=== PATIENT | female | born 1935 | race Caucasian/White ===

== ENCOUNTER 2017-10-16 10:04 | Observation (INO) | payer OTHER ==
[~2017-10-16] VITALS: Ht 160 cm; Wt 52.2 kg
[~2017-10-16 10:04] MED LIST: AMLO-110 PO; ATEN50TA8 PO; CHOLTAB3 PO; FLX10 PO; LEVO75TA36 PO; TRAM-10 PO
[2017-10-16 10:11] VITALS: Ht 160 cm; Wt 52.2 kg
--- NOTE | 2017-10-16 10:23 | EMERGENCY ROOM VISIT NOTE ---
History Report prepared by Amy: Italo Dillon Under the Supervision of: Dr. Bryce Castro M.D. First contact with patient: 10:06 Stated Complaint: SYNCOPE/FALL History of Present Illness The patient is an 82 year old female with a history of hypertension who presents to the Emergency Room via EMS with complaints of a syncopal episode that occurred prior to arrival this morning. Per EMS, the patient was leaving an Urgent Care after getting sutured and passed out and fell. No seizure activity was seen. Per the patient's daughter, the patient got really white before the fall and was not responding. The patient states that she had new boots on that may have gotten her off-balance. She denies any hits to her chest or abdomen. She also denies any recent flu-like illnesses, fevers, tongue biting , numbness, weakness, lightheadedness, dizziness, headaches, neck pain, extremity pain, abdominal pain, urinary symptoms, melena, or hematochezia. Per the patient's daughter, the patient had been doing well recently, and was going to doctor's appointments on her own. She takes a baby Aspirin daily. Her tetanus shot is up to date. 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 Was unresponsive for a bit of time. Denies tongue biting or extremity pain. Denies lightheadedness, dizziness. Review of Systems See HPI for pertinent positives & negatives. A total of 10 systems reviewed and were otherwise negative. Past Medical & Surgical Medical Problems: (1) Benign hypertension (2) Chronic Kidney Disease, Stage Iii (Moderate) (3) Head injury without fracture of skull (4) Hypothyroidism Nos (5) Syncope and collapse Surgical Problems: (1) Back surgery (2) Hysterectomy Old medical records were reviewed. Nurse's notes were reviewed and I agree with. Family History Family history omitted secondary to patient's advanced age. Social History Smoking Status: Never Smoker Alcohol Use: none Marital Status: Housing Status: lives alone Occupation Status: retired Current/Historical Medications Scheduled Amlodipine Besylate (Amlodipine Besylate), 10 MG PO DAILY Aspirin (Aspirin Ec), 81 MG PO DAILY Atenolol (Tenormin), 50 MG PO DAILY Atorvastatin (Atorvastatin Calcium), 10 MG PO DAILY Levothyroxine Sodium (Levothyroxine Sodium), 75 MCG PO DAILY Tramadol (Ultram), 25 MG PO Q6HR PRN Scheduled PRN Cyclobenzaprine Hcl (Flexeril), 5 MG PO TID PRN for spasms Hydroxyzine HCl (Hydroxyzine HCl), 10 MG PO Q6 PRN for Itching Loratadine (Claritin), 10 MG PO DAILY PRN for Itching Allergies Coded Allergies: Beclomethasone (Verified Allergy, Unknown, ?, 10/16/17) Diazepam (Verified Allergy, Unknown, ?, 10/16/17) Codeine (Verified Adverse Reaction, Mild, MILD CONFUSION, 10/16/17) Physical Exam Vital Signs Date Time Temp Pulse Resp B/P (MAP) Pulse Ox O2 Delivery O2 Flow Rate FiO2 10/16/17 11:21 36.9 68 18 130/65 95 Room Air 10/16/17 10:11 36.9 68 18 154/74 95 Room Air 10/16/17 10:10 68 Physical Exam General: Non-ill appearing older female in no acute distress. HEENT: Has 2 bandages on the left forehead and face from previous wound repair. No active bleeding. Pupils are equal round and reactive to light. Extraocular movements are intact. Oropharynx is pink with moist mucous membranes. Edentulous. No swelling of the mouth lips or tongue. Neck: Supple with a midline trachea. No meningeal signs or stiffness, no JVD or bruits. No Stridor. Chest: Clear to auscultation bilaterally. No wheezes or rhonchi. No increased work of breathing. Heart: regular rate and rhythm. Abdomen: Soft nontender, nondistended without rebound guarding or rigidity. Extremities: No cyanosis clubbing or edema. No calf tenderness or assymetry Spine/Back. Non tender to palpation. No CVA tenderness Skin: Good turgor without rashes. Neurologic exam: Cranial nerves two through 12 are intact. Motor and sensation are intact and symmetrical throughout. Medical Decision & Procedures ER Provider Diagnostic Interpretation: Radiology results as stated below per my review and radiologist interpretation: HEAD WITHOUT CONTRAST (CT) CLINICAL HISTORY: 82 years-old Female presenting with eval for trauma, laceration to the left temporal region. TECHNIQUE: Multidetector CT imaging of the head was performed without the use of intravenous contrast. IV contrast: None. A dose lowering technique was used consistent with the principles of ALARA (as low as reasonably achievable). COMPARISON: 03/07/2009. CT DOSE (mGy.cm): The estimated cumulative dose is 537.48 mGy.cm. FINDINGS: Deck Supervisor topogram: The patient is edentulous. Ventricles and sulci normal in size. Periventricular and subcortical white matter hypoattenuation, nonspecific but likely indicative of chronic small vessel ischemic change. No mass effect or midline shift. No hemorrhage or acute territorial infarct. No extra-axial fluid collection. Sclerosis of the right maxillary sinus wall suggest chronic sinusitis. Calvarium intact. Minimal soft tissue irregularity over the left temporal region consistent with laceration. No large hematoma. IMPRESSION: 1. No acute intracranial abnormality. 2. Laceration over the left temporal region. No subjacent osseous injury. 3. Evidence of chronic sinusitis of the right maxillary sinus. Electronically signed by: Josh Lanza M.D. 10/16/2017 11:05 AM Dictated Date/Time: 10/16/2017 11:02 AM CHEST ONE VIEW PORTABLE CLINICAL HISTORY: 82 years-old Female presenting with CHEST PAIN. TECHNIQUE: Portable upright AP view of the chest was obtained. COMPARISON: 11/25/2012. FINDINGS: Atherosclerosis of the aortic arch. Cardiac silhouette normal in size. Mitral annular calcification may be present. Lungs and pleural spaces clear. Degenerative changes of the thoracic spine. Chronic deformity of the distal right clavicle and bilateral humeral heads. Upper abdomen normal. IMPRESSION: 1. No acute cardiopulmonary disease. Electronically signed by: Josh Lanza M.D. 10/16/2017 10:40 AM Dictated Date/Time: 10/16/2017 10:39 AM Laboratory Results 10/16/17 10:15 Red Blood Count 3.63, Mean Corpuscular Volume 83.7, Mean Corpuscular Hemoglobin 28.7, Mean Corpuscular Hemoglobin Concent 34.2, Mean Platelet Volume 9.3, Neutrophils (%) (Auto) 88.7, Lymphocytes (%) (Auto) 4.6, Monocytes (%) (Auto) 4.6, Eosinophils (%) (Auto) 1.2, Basophils (%) (Auto) 0.3, Neutrophils # (Auto) 2.90, Lymphocytes # (Auto) 0.15, Monocytes # (Auto) 0.15, Eosinophils # (Auto) 0.04, Basophils # (Auto) 0.01 10/16/17 10:15 Test 10/16/17 10:15 10/16/17 10:16 White Blood Count 3.27 K/uL (4.8-10.8) Red Blood Count 3.63 M/uL (4.2-5.4) Hemoglobin 10.4 g/dL (12.0-16.0) Hematocrit 30.4 % (37-47) Mean Corpuscular Volume 83.7 fL (80-100) Mean Corpuscular Hemoglobin 28.7 pg (25-34) Mean Corpuscular Hemoglobin Concent 34.2 g/dl (32-36) Platelet Count 161 K/uL (130-400) Mean Platelet Volume 9.3 fL (7.4-10.4) Neutrophils (%) (Auto) 88.7 % Lymphocytes (%) (Auto) 4.6 % Monocytes (%) (Auto) 4.6 % Eosinophils (%) (Auto) 1.2 % Basophils (%) (Auto) 0.3 % Neutrophils # (Auto) 2.90 K/uL (1.4-6.5) Lymphocytes # (Auto) 0.15 K/uL (1.2-3.4) Monocytes # (Auto) 0.15 K/uL (0.11-0.59) Eosinophils # (Auto) 0.04 K/uL (0-0.5) Basophils # (Auto) 0.01 K/uL (0-0.2) RDW Standard Deviation 48.7 fL (36.4-46.3) RDW Coefficient of Variation 15.9 % (11.5-14.5) Immature Granulocyte % (Auto) 0.6 % Immature Granulocyte # (Auto) 0.02 K/uL (0.00-0.02) Ovalocytes 1+ Anion Gap 5.0 mmol/L (3-11) Estimated GFR () 55.6 Estimated GFR (Non- 48.0 BUN/Creatinine Ratio 26.7 (10-20) Calcium Level 8.8 mg/dl (8.5-10.1) Total Bilirubin 0.6 mg/dl (0.2-1) Direct Bilirubin 0.2 mg/dl (0-0.2) Aspartate Amino Transf (AST/SGOT) 28 U/L (15-37) Alanine Aminotransferase (ALT/SGPT) 27 U/L (12-78) Alkaline Phosphatase 118 U/L (45-117) Total Protein 6.5 gm/dl (6.4-8.2) Albumin 3.3 gm/dl (3.4-5.0) Lipase 136 U/L (73-393) Bedside Glucose 142 mg/dl (70-90) Laboratory studies as stated above per my review. Medications Administered Medications (Trade) Dose Ordered Sig/Stephen Route Start Time Stop Time Status Last Admin Dose Admin Sodium Chloride 500 ml @ 999 mls/hr Q31M STAT IV 10/16/17 10:34 10/16/17 11:04 DC 10/16/17 10:44 999 MLS/HR ECG Indication: syncope Rate (beats per minute): 62 Rhythm: normal sinus Findings: no acute ischemic change, no ectopy ED Course 1006: Past medical records reviewed. The patient was evaluated in room B6, and a complete history and physical examination were performed. 1034: Ordered NSS 500 ml @ 999 mls/hr IV. 1126: Upon reevaluation, the patient is resting comfortably. I discussed the results and treatment plan with the patient. She verbalized agreement of the treatment plan. The patient will be evaluated for further management. 1136: Discussed the patient's case with Dr. Janessa Lau vice president of software engineering. The patient will be evaluated for further management. Medical Decision Differentials include vasovagal episode, anemia, traumatic injuries, electrolyte or metabolic abnormality, arrhythmia, cardiac disease. This patient comes in after having a syncopal episode she first suffered mechanical fall and had a laceration that was repaired and right after this was repaired she got tired and may have passed out. She had no incontinence and she feels better now. She is up-to-date on her tetanus booster. They sent her here for further evaluation. She has had no chest pain. I did check the blood sugar here is in the 120s. She has no history of diabetes. EKG, CAT scan of her head ,chest x-ray ,multiple blood testing was obtained. She was also hydrated with IV normal saline. She was reassessed frequently. She has remained stable. CAT scan of her head was unremarkable chest x-ray was unremarkable. EKG does not suggest acute cardiac event. Her troponin is mildly elevated at 0.075. Additionally her hemoglobin is low at 10 although I do not have a recent hemoglobin for comparison it is down from several years ago. Her BUN is also elevated 29 and she could be a little dry. I think this most likely was vasovagal but with elevated troponin. I do think she needs to be observed/admitted for further treatment and evaluation. Medication Reconcilliation Current Medication List: was personally reviewed by me Blood Pressure Screening Patient's blood pressure: Normal blood pressure Consults Time Called: 1130 Consulting Physician: Dr. Janessa Lau vice president of software engineering Returned Call: [phone] Discussed the patient's case with Dr. Janessa Lau vice president of software engineering. The patient will be evaluated for further management. Impression Primary Impression: Syncope Additional Impressions: Elevated troponin Concussion Scribe Attestation The scribe's documentation has been prepared under my direction and personally reviewed by me in its entirety. I confirm that the note above accurately reflects all work, treatment, procedures, and medical decision making performed by me. Departure Information Dispostion Being Evaluated By Hospitalist Referrals Alice Evans M.D. (PCP) Problem Qualifiers
[2017-10-16] MEDS ORDERED: CYCL5TAB PO (10:29)
[2017-10-16] MEDS ORDERED: ATR10 PO (10:29)
[2017-10-16] MEDS ORDERED: LPT10 PO (10:29)
[2017-10-16] MEDS ORDERED: LEVO75TA5 PO (10:29)
[2017-10-16] MEDS ORDERED: ASPI81TA28 PO (10:29)
[2017-10-16] MEDS ORDERED: NRV/10 PO (10:29)
[2017-10-16] MEDS ORDERED: CLR10 PO (10:29)
[2017-10-16] MEDS ORDERED: SODIUM CHLORIDE 0.9% 1000ML 500 ML IV STA (10:34)
[2017-10-16 10:35] LABS: HEMATOCRIT 30.4 % (37-47); HEMOGLOBIN 10.4 g/dL (12.0-16.0); MEAN CELL VOLUME 83.7 fL (80-100); MEAN CORPUSCULAR HEMOGLOBIN 28.7 pg (25-34); MEAN CORPUSCULAR HGB CONC 34.2 g/dl (32-36); MEAN PLATELET VOLUME 9.3 fL (7.4-10.4); PLATELET COUNT 161 K/uL (130-400); RED CELL DISTRIBUTION WIDTH CV 15.9 % (11.5-14.5); RED CELL DISTRIBUTION WIDTH SD 48.7 fL (36.4-46.3); WHITE BLOOD COUNT 3.27 K/uL (4.8-10.8)
--- NOTE | 2017-10-16 10:41 | DIAGNOSTIC IMAGING REPORT ---
CHEST ONE VIEW PORTABLE CLINICAL HISTORY: 82 years-old Female presenting with CHEST PAIN. TECHNIQUE: Portable upright AP view of the chest was obtained. COMPARISON: 11/25/2012. FINDINGS: Atherosclerosis of the aortic arch. Cardiac silhouette normal in size. Mitral annular calcification may be present. Lungs and pleural spaces clear. Degenerative changes of the thoracic spine. Chronic deformity of the distal right clavicle and bilateral humeral heads. Upper abdomen normal. IMPRESSION: 1. No acute cardiopulmonary disease. Electronically signed by: Josh Lanza M.D. 10/16/2017 10:40 AM Dictated Date/Time: 10/16/2017 10:39 AM
[2017-10-16 10:53] LABS: ALBUMIN 3.3 gm/dl (3.4-5.0); ALT/SGPT 27 U/L (12-78); AST/SGOT 28 U/L (15-37); BLOOD UREA NITROGEN 29 mg/dl (7-18); CALCIUM 8.8 mg/dl (8.5-10.1); CARBON DIOXIDE 25 mmol/L (21-32); CREATININE 1.07 mg/dl (0.60-1.20); GLUCOSE 134 mg/dl (70-99); LIPASE 136 U/L (73-393); POTASSIUM 4.5 mmol/L (3.5-5.1); SODIUM 135 mmol/L (136-145)
[2017-10-16 11:00] LABS: ALKALINE PHOSPHATASE 118 U/L (45-117); TOTAL PROTEIN 6.5 gm/dl (6.4-8.2)
--- NOTE | 2017-10-16 11:06 | DIAGNOSTIC IMAGING REPORT ---
HEAD WITHOUT CONTRAST (CT) CLINICAL HISTORY: 82 years-old Female presenting with eval for trauma, laceration to the left temporal region. TECHNIQUE: Multidetector CT imaging of the head was performed without the use of intravenous contrast. IV contrast: None. A dose lowering technique was used consistent with the principles of ALARA (as low as reasonably achievable). COMPARISON: 03/07/2009. CT DOSE (mGy.cm): The estimated cumulative dose is 537.48 mGy.cm. FINDINGS: Prop And Scenery Maker topogram: The patient is edentulous. Ventricles and sulci normal in size. Periventricular and subcortical white matter hypoattenuation, nonspecific but likely indicative of chronic small vessel ischemic change. No mass effect or midline shift. No hemorrhage or acute territorial infarct. No extra-axial fluid collection. Sclerosis of the right maxillary sinus wall suggest chronic sinusitis. Calvarium intact. Minimal soft tissue irregularity over the left temporal region consistent with laceration. No large hematoma. IMPRESSION: 1. No acute intracranial abnormality. 2. Laceration over the left temporal region. No subjacent osseous injury. 3. Evidence of chronic sinusitis of the right maxillary sinus. Electronically signed by: Josh Lanza M.D. 10/16/2017 11:05 AM Dictated Date/Time: 10/16/2017 11:02 AM
[2017-10-16 11:31] LABS: BASO % 0.3 %; BASO ABS # 0.01 K/uL (0-0.2); EOS % 1.2 %; EOS ABS # 0.04 K/uL (0-0.5); IG# 0.02 K/uL (0.00-0.02); LYMPH % 4.6 %; LYMPH ABS # 0.15 K/uL (1.2-3.4); MONO % 4.6 %; MONO ABS # 0.15 K/uL (0.11-0.59); NEUT % 88.7 %
[2017-10-16] MEDS ORDERED: ONDANSETRON INJ 2 MG/ML 2 ML VIAL IV PRN (12:15)
[2017-10-16] MEDS ORDERED: ACETAMINOPHEN 325 MG TAB PO PRN (12:15)
[2017-10-16] MEDS ORDERED: CYCLOBENZAPRINE HCL 5 MG TAB PO PRN (12:30)
[2017-10-16] MEDS ORDERED: LORATADINE 10 MG TAB PO PRN (12:30)
[2017-10-16] MEDS ORDERED: hydrOXYzine HCL 10 MG TAB PO PRN (12:30)
[2017-10-16] MEDS ORDERED: TRAMADOL HCL 50 MG TAB PO PRN (12:30)
[2017-10-16] MEDS ORDERED: IV FLUIDS COMPLETED PRN (13:00)
--- NOTE | 2017-10-16 13:23 | HISTORY & PHYSICAL EXAMINATION ---
DATE OF ADMISSION: 10/16/2017 PRIMARY CARE PHYSICIAN: Dr. Evans. CHIEF COMPLAINT: Left frontal head injury and also syncope and collapsed following that. HISTORY OF PRESENT COMPLAINT: She is an 82-year-old female with significant past medical history of chronic kidney disease stage III, hypothyroidism, osteoarthritis, allergic rhinitis, impaired fasting glucose, hypertension and hyperlipidemia, apparently also rosacea, apparently uses her walker at home to move around. She went to the bathroom and was going to get out, but most likely she missed her walker and hit her left frontal area on the age of the door with a cut injury in that area. She was taken to the local urgent care center at [place] and there the area was sutured. There was a considerable amount of bleeding, as per the family members. After that while she was on a wheelchair to come around, she suddenly slumped backwards with loss of consciousness for about a few minutes, 5 minutes as per the daughter and at that time she looked very pale. She did not have any rolling of the eyes, no frothiness in the mouth, no movement of the extremities and she did not have any complaint before that episode. Following that episode when she came around, she did not have any residual effect from that. After that, she was rushed to the Emergency Room for further evaluation. In the ER, she is hemodynamically stable. Her CAT scan has been negative and other blood tests remained unremarkable except troponin minimally high at 0.07. From that point, she was admitted to telemetry unit for continuation of care. PAST MEDICAL HISTORY: Significant for chronic kidney disease stage III, acquired hypothyroidism, generalized osteoarthritis, hypertension, hyperlipidemia, allergic rhinitis, rosacea and also history of impaired glucose tolerance. PAST SURGICAL HISTORY: Significant for partial hysterectomy. FAMILY HISTORY: Mother at age of 61 from [place]. Father at the age of 82 from a stroke and [place]. SOCIAL HISTORY: She is . She has 5 daughters. She never used any tobacco and she does not use any alcohol and she uses a walker to move around. REVIEW OF SYSTEMS: Other systemic review unremarkable except those mentioned in history of present complaint. ALLERGIES: BECLOMETHASONE, CODEINE AND DIAZEPAM. MEDICATIONS: As an outpatient, she has been taking amlodipine 10 mg daily, aspirin 81 mg daily, atenolol 50 mg daily, atorvastatin 10 mg daily, cyclobenzaprine 5 mg 3 times daily as needed, hydroxyzine 10 mg q. 6 hourly p.r.n. for itching, levothyroxine 75 mcg daily, Claritin 10 mg daily, and Ultram 50 mg tablet half tablet q. 6 hourly p.r.n. PHYSICAL EXAMINATION: GENERAL: On examination in the Emergency Room, she was not having any acute distress. VITAL SIGNS: Temperature 36.9, pulse was 68, blood pressure 130/65 and saturation 95% on room air. HEENT: Only remarkable for status post stitches and bandage in the left forehead with a bandage there and generalized history of bruising, especially upper extremities. NECK: Supple. No JVD, no bruit. CHEST: Clear to auscultate bilaterally. HEART: S1, S2 regular. No murmur appreciated. ABDOMEN: Soft, benign, nontender, no organomegaly. Bowel sounds present. MUSCULOSKELETAL SYSTEM: Did not show any acute arthritis. CENTRAL NERVOUS SYSTEM: She was alert, awake, oriented x3. She did not have any focal sensory and/or motor deficit on examination. LABORATORY DATA: Noted today - white count was 3.27, H&H 10.4/30.4, platelet was 161. Sodium 135, potassium 4.5, chloride 105, carbon dioxide 25, BUN 29, creatinine 1.07, random glucose 142. LFTs normal, troponin was slightly elevated at 0.074, albumin 3.3 and lipase was 136. IMAGING DATA: Chest x-ray reported as no acute cardiopulmonary disease. CT of the head reported as no acute intracranial abnormality. EKG was in sinus rhythm, rate of 62 per minute, normal axis and no significant ST-T wave changes. IMPRESSION AND PLAN: 1. Head injury, seems to be secondary to mechanical near fall. The scalp area has been stitched, I think that should be removed in about 7-10 days, which can be done as an outpatient. 2. Syncope and collapse, seems to vasovagal. Will get carotid ultrasound to rule out any significant stenosis. Will get echocardiogram. With minimal elevation of the troponin, we will cycle cardiac enzymes and she will be admitted to telemetry unit. 3. Hypertension, blood pressure seems to be controlled. Continue with current medications. 4. Hyperlipidemia. Continue with current replacement therapy. 5. Hypothyroidism. Continue with Synthroid 6. Gastrointestinal prophylaxis with Maalox, Mylanta as needed. 7. Deep venous thrombosis prophylaxis with subcutaneous heparin. 8. Code status: Discussed with the patient and the daughter. She will be a full code. In my clinical judgment, the beneficiary meets criteria as per CMS for 2-midnight stay in the hospital. LEE
[2017-10-16] MEDS: NSS + 20MEQ KCL 1000ML 1,000 ML IV SCH (14:23)
[2017-10-16 14:43] LABS: PTT PATIENT 23.7 SECONDS (21.0-31.0)
[2017-10-16] MEDS ORDERED: PNEUMOCOCCAL POLYSACCHARIDES 25 MCG/0.5 ML VIAL/SYR IM. ONE (14:45)
[2017-10-16] MEDS ORDERED: PNEUMOCOCCAL ADMINISTRATION CHARGE ONE (14:45)
[2017-10-16 14:57] VITALS: O2SAT 97
[2017-10-16 15:08] VITALS: BP 121/65; PULSE 70; TEMP 36.5; O2SAT 97
--- NOTE | 2017-10-16 15:15 | DIAGNOSTIC IMAGING REPORT ---
CAROTID DOPPLER NECK ART CLINICAL HISTORY: 82 years-old Female presenting with r/o Stenosis. TECHNIQUE: Real-time grayscale and color and spectral Doppler ultrasound imaging of the bilateral carotid arteries was performed. NASCET criteria was used in evaluating this study. COMPARISON: 03/07/2009. FINDINGS: Right: Common carotid: Patent. Peak systolic velocity 106 cm/s. Internal carotid artery: Atherosclerosis of the proximal ICA. Peak systolic velocity 85 cm/s. Systolic ratio: 0.8. External carotid artery: Patent. Peak systolic velocity 108 cm/s. Left: Common carotid: Patent. Peak systolic velocity 85 cm/s. Internal carotid artery: Atherosclerosis of the proximal ICA. Peak systolic velocity 95 cm/s. Systolic ratio: 1.1. External carotid artery: Patent. Peak systolic velocity 85 cm/s. Bilateral antegrade flow within the vertebral arteries. Reference ranges: Stenosis measurements are compared to reference velocity parameters. ICA peak systolic velocity (PSV) < 125 cm/s normal or indicating < 50% stenosis; ICA PSV 125-230 cm/s equivalent to 50-69% stenosis; ICA PSV > 230 cm/s equivalent to greater than or equal to 70% stenosis. ICA PSV to common carotid artery PSV ratio < 2 normal or < 50% stenosis; 2-4 equates to 50-69% stenosis, > 4 equates to greater than or equal to 70% stenosis. Normal ICA end-diastolic velocity less than 40. Blood pressure Not performed secondary to intravenous catheters. IMPRESSION: No hemodynamically significant stenosis seen within the carotid arteries. Electronically signed by: Josh Lanza M.D. 10/16/2017 3:14 PM Dictated Date/Time: 10/16/2017 3:12 PM
[2017-10-16 19:24] VITALS: BP 128/73; PULSE 71; TEMP 36.6; O2SAT 97
[2017-10-16 20:21] VITALS: O2SAT 97
[2017-10-16] MEDS: HEPARIN SOD 5000 UNIT/0.5 ML CARP SQ SCH (20:37)
[2017-10-16 23:59] VITALS: BP 119/70; PULSE 69; TEMP 36.7; O2SAT 96
[2017-10-17] VITALS (8 sets, daily range): BP systolic 108–166; BP diastolic 63–74; PULSE 64–72; TEMP 36.4–36.7; O2SAT 95–98
[2017-10-17] MEDS: NSS + 20MEQ KCL 1000ML 1,000 ML IV SCH (03:20)
[2017-10-17] MEDS: LEVOTHYROXINE 75 MCG TAB PO SCH (06:15)
[2017-10-17 07:24] LABS: HEMATOCRIT 24.5 % (37-47); HEMOGLOBIN 8.3 g/dL (12.0-16.0); MEAN CELL VOLUME 84.8 fL (80-100); MEAN CORPUSCULAR HEMOGLOBIN 28.7 pg (25-34); MEAN CORPUSCULAR HGB CONC 33.9 g/dl (32-36); MEAN PLATELET VOLUME 9.2 fL (7.4-10.4); PLATELET COUNT 122 K/uL (130-400); RED CELL DISTRIBUTION WIDTH CV 16.4 % (11.5-14.5); RED CELL DISTRIBUTION WIDTH SD 50.8 fL (36.4-46.3); WHITE BLOOD COUNT 1.22 K/uL (4.8-10.8)
[2017-10-17 08:09] LABS: CREATININE 0.81 mg/dl (0.60-1.20); POTASSIUM 4.2 mmol/L (3.5-5.1)
[2017-10-17] MEDS: ASPIRIN 81 MG ECTAB PO SCH (09:09)
[2017-10-17] MEDS: ATORVASTATIN 10 MG TAB PO SCH (09:09)
[2017-10-17] MEDS: HEPARIN SOD 5000 UNIT/0.5 ML CARP SQ SCH ×2 (09:10→21:48)
[2017-10-17] MEDS: AMLODIPINE BESYLATE 5 MG TAB PO SCH (09:10)
[2017-10-17 13:41] LABS: HEMATOCRIT 26.7 % (37-47); HEMOGLOBIN 8.7 g/dL (12.0-16.0); MEAN CELL VOLUME 84.8 fL (80-100); MEAN CORPUSCULAR HEMOGLOBIN 27.6 pg (25-34); MEAN CORPUSCULAR HGB CONC 32.6 g/dl (32-36); MEAN PLATELET VOLUME 9.8 fL (7.4-10.4); PLATELET COUNT 154 K/uL (130-400); RED CELL DISTRIBUTION WIDTH CV 16.3 % (11.5-14.5); RED CELL DISTRIBUTION WIDTH SD 50.5 fL (36.4-46.3); WHITE BLOOD COUNT 1.25 K/uL (4.8-10.8)
[2017-10-17 13:44] LABS: BASO % 0.8 %; BASO ABS # 0.01 K/uL (0-0.2); LYMPH % 9.6 %; LYMPH ABS # 0.12 K/uL (1.2-3.4); MONO % 14.4 %; MONO ABS # 0.18 K/uL (0.11-0.59); NEUT % 67.2 %; NEUT ABS # 0.84 K/uL (1.4-6.5)
--- NOTE | 2017-10-17 14:49 | Progress Note ---
Internal Med Progress Note Date of Service: Oct 17, 2017. Provider Documentation: SUBJECTIVE: Patient seen at the bedside. Doing well. Denies pain. No fever OBJECTIVE: HEENT: no bleeding from scalp extremities. NECK: Supple. No JVD, no bruit. CHEST: Clear to auscultate bilaterally. HEART: S1, S2 regular. No murmur appreciated. ABDOMEN: Soft, benign, nontender, no organomegaly. Bowel sounds present. Neuro: awake, oriented x3. ASSESSMENT & PLAN: CT head 1. No acute intracranial abnormality. 2. Laceration over the left temporal region. No subjacent osseous injury. 3. Evidence of chronic sinusitis of the right maxillary sinus. CXR Atherosclerosis of the aortic arch. Cardiac silhouette normal in size. Mitral annular calcification may be present. Lungs and pleural spaces clear. Degenerative changes of the thoracic spine. Chronic deformity of the distal right clavicle and bilateral humeral heads. Upper abdomen normal. IMPRESSION: 1. No acute cardiopulmonary disease Ultrasound Carotid arteries No hemodynamically significant stenosis seen within the carotid arteries Seen by PT/OT Home w/ Home Health services (case management is making referral) 1) Head injury, seems to be secondary to mechanical near fall. The scalp area has been stitched and should have stitch removal in about 7-10 days, which can be done as an outpatient. 2) Syncope and collapse - no further symptoms in the hospital and normal carotid ultrasound and normal EKG. will order echocardiogram 3) Patient also has anemia which is stable after head injury and syncope with Hospital Hgb 10.4 on admission to 8.3 and 8.7 the following day 4) Patient has low WBC and admission 3.27 and is 1.22 and 1.25 the following day. No neutropenic fever but is neutropenic Will send blood culture to rule out infection. Neutropenic precautions for now. Hematology Oncology Consult requested 5). Hypertension - Continue with current medications. 6). Hyperlipidemia - Continue with current replacement therapy. 7). Hypothyroidism - Continue with Synthroid 8) Gastrointestinal prophylaxis with Maalox, Mylanta as needed. 9) Deep venous thrombosis prophylaxis with subcutaneous heparin. 10) Code status: Full code. Disposition: Patient to remain on telemetry with neutropenic precautions When medically cleared Patient to follow up with primary care doctor for: 10/28/2017 11:40 AM Alice Evans MD General Internal Medicine [facility] 11/25/2017 10:30 AM Alicia Bustillos MD Urology [facility] Vital Signs: Date Time Temp Pulse Resp B/P (MAP) Pulse Ox O2 Delivery O2 Flow Rate FiO2 10/17/17 12:00 Room Air 10/17/17 11:34 36.7 68 18 139/67 (91) 97 Room Air 10/17/17 08:00 Room Air 10/17/17 07:26 36.7 64 18 143/74 (97) 97 Room Air 10/17/17 04:45 36.4 65 16 135/67 (89) 97 Room Air 10/17/17 04:17 97 Room Air 10/17/17 00:36 97 Room Air 10/16/17 23:59 36.7 69 18 119/70 (86) 96 Room Air 10/16/17 20:21 97 Room Air 10/16/17 19:24 36.6 71 18 128/73 (91) 97 Room Air Lab Results: Results Past 24 Hours Test 10/16/17 18:38 10/17/17 00:09 10/17/17 07:07 10/17/17 12:49 Range/Units Troponin I 0.042 0.028 0-0.045 ng/ml White Blood Count 1.22 1.25 4.8-10.8 K/uL Red Blood Count 2.89 3.15 4.2-5.4 M/uL Hemoglobin 8.3 8.7 12.0-16.0 g/dL Hematocrit 24.5 26.7 37-47 % Mean Corpuscular Volume 84.8 84.8 80-100 fL Mean Corpuscular Hemoglobin 28.7 27.6 25-34 pg Mean Corpuscular Hemoglobin Concent 33.9 32.6 32-36 g/dl RDW Standard Deviation 50.8 50.5 36.4-46.3 fL RDW Coefficient of Variation 16.4 16.3 11.5-14.5 % Platelet Count 122 154 130-400 K/uL Mean Platelet Volume 9.2 9.8 7.4-10.4 fL Sodium Level 136 136-145 mmol/L Potassium Level 4.2 3.5-5.1 mmol/L Chloride Level 107 98-107 mmol/L Carbon Dioxide Level 24 21-32 mmol/L Anion Gap 5.0 3-11 mmol/L Blood Urea Nitrogen 19 7-18 mg/dl Creatinine 0.81 0.60-1.20 mg/dl Est Creatinine Clear Calc Drug Dose 43.5 ml/min Estimated GFR () 77.8 Estimated GFR (Non- 67.2 BUN/Creatinine Ratio 23.8 10-20 Random Glucose 113 70-99 mg/dl Calcium Level 8.0 8.5-10.1 mg/dl Magnesium Level 2.1 1.8-2.4 mg/dl Neutrophils (%) (Auto) 67.2 % Lymphocytes (%) (Auto) 9.6 % Monocytes (%) (Auto) 14.4 % Eosinophils (%) (Auto) 8.0 % Basophils (%) (Auto) 0.8 % Neutrophils # (Auto) 0.84 1.4-6.5 K/uL Lymphocytes # (Auto) 0.12 1.2-3.4 K/uL Monocytes # (Auto) 0.18 0.11-0.59 K/uL Eosinophils # (Auto) 0.10 0-0.5 K/uL Basophils # (Auto) 0.01 0-0.2 K/uL Immature Granulocyte % (Auto) 0.0 % Immature Granulocyte # (Auto) 0.00 0.00-0.02 K/uL Large Platelets 1+ Microbiology Results 10/17/17 Blood Culture, Ordered Pending 10/17/17 Blood Culture, Ordered Pending
[2017-10-18 03:49] VITALS: BP 149/65; PULSE 68; TEMP 37; O2SAT 96
[2017-10-18] MEDS: LEVOTHYROXINE 75 MCG TAB PO SCH (05:49)
[2017-10-18 06:56] LABS: ALBUMIN 2.9 gm/dl (3.4-5.0); CALCIUM 8.2 mg/dl (8.5-10.1); CREATININE 0.83 mg/dl (0.60-1.20); POTASSIUM 4.1 mmol/L (3.5-5.1)
[2017-10-18 06:57] LABS: BASO % 0.8 %; BASO ABS # 0.01 K/uL (0-0.2); EOS % 9.4 %; EOS ABS # 0.12 K/uL (0-0.5); IG# 0.01 K/uL (0.00-0.02); LYMPH ABS # 0.09 K/uL (1.2-3.4); MONO % 10.2 %; MONO ABS # 0.13 K/uL (0.11-0.59); NEUT % 71.8 %; NEUT ABS # 0.92 K/uL (1.4-6.5)
[2017-10-18 07:00] LABS: TOTAL PROTEIN 5.9 gm/dl (6.4-8.2)
[2017-10-18 07:44] VITALS: BP 118/68; PULSE 64; TEMP 36.6; O2SAT 97
[2017-10-18] MEDS: ASPIRIN 81 MG ECTAB PO SCH (07:50)
[2017-10-18] MEDS: AMLODIPINE BESYLATE 5 MG TAB PO SCH (07:51)
[2017-10-18] MEDS: ATORVASTATIN 10 MG TAB PO SCH (07:51)
[2017-10-18] MEDS: HEPARIN SOD 5000 UNIT/0.5 ML CARP SQ SCH (07:53)
--- NOTE | 2017-10-18 11:09 | Medical Consult ---
Consultation Date of Consultation: Oct 18, 2017. Attending Physician: Wilver Aleman M.D. History of Present Illness HEMATOLOGY CONSULT: Evaluation and management of pancytopenia. Date of consult: 10/18/[address] Aleman. HPI: 82-year-old female, ambulating with the help of the walker, apparently she missed her walker and heater frontal area to the edge of the door with cut and local bleeding, she was seen in urgent care clinic where the area was featured, she was about to go home but then she passed out without any loss of consciousness and now she's admitted at [facility]. Hematology consulted because of low blood count. I reviewed her medical record, I saw her bedside, her daughter was also at bedside, her daughter gave good history in her case. Blood workup done at [facility] in the past: - WBC 2900, H&H of 13.7/40, Platelet count of 151,000, ANC 1000, Absolute Lymphocyte count 0.9 Blood workup done at [facility]: CBC result: - She had normal white blood cell count in the range of 1720-3252 earlier before October 2015. - White blood count dropped down to around 4596-7382 since April 2016. - WBC 3800, H&H of 13/40, Platelet count of 220,000, ANC 2014, Absolute Lymphocyte count 440 (06/13/2016). - Where is around improved to around 4000, ANC was around 3100, Absolute Lymphocyte count was on the lower side around 390 in 06/2016. - WBC 1800, H&H of 11.1/32.7, Platelet count of of 153,000 (06/28/2017) - WBC 1900, H&H of 10.3/30.7, Platelet count of 160,000, ANC 1500, Absolute Lymphocyte count 180 (07/05/2017) - WBC 2200, H&H of 10.7/31.1, MCV 84.1, Platelet count of 163,000, ANC 1600, Absolute Lymphocyte count 200 (07/21/2017). Blood workup done on 07/22/2017: - Peripheral smear reviewed by the pathologist showed a moderate leukopenia with extra lymphocytopenia and the ability neutropenia. No immature WBCs noted. - Vitamin B12 level --> 289. - Folic acid --> 10.6 - Urinalysis showed occult blood and no significant RBCs. - ANCA --> Negative - C-reactive protein --> Less than 1 - ESR --> 28 - ALINE --> Negative. - BUN/creatinine: 24/1.1 Blood workup done in in 06/2017: - M spike --> Negative (06/2017). - LDH --> 226 (06/2017). - Ferritin level --> 172, serum iron 59, TIBC 284, iron saturation 21%. - BUN/creatinine: 28/1.1, calcium 9.0. - Antineutrophil antibody --> Negative (06/2016). She denies any history of repeated infections, no bleeding from either sites other than some bruising following trivial injury, she is on aspirin therapy. No new cardiac or pulmonary symptoms, no leg edema. REVIEW OF SYSTEMS: GENERAL: No recent change in weight, no increasing weakness, fatigue present, no fever, sweats or chills. SKIN: No skin rash, easy bruising with trivial injury. HEAD: No headache at this time, no dizziness. EYES: No recent change in the vision, no diplopia, EARS: No earache ,no tinnitus, NOSE: No epistaxis, No nasal discharge or stuffiness, MOUTH: No sores, no dysphagia, no hoarseness of voice, NECK: No lumps, No swelling in thyroid area. No stiffness. PULMONARY: No cough, No shortness of breath, no hemoptysis, no chest pain, No wheezing. CARDIOVASCULAR: No anginal chest pain, no PND, no orthopnea. No palpitation, no leg edema. No syncope. GASTRIINTESTINAL: No abdominal pain, no nausea or vomiting. No diarrhea, No constipation. No blood in stool or black tarry stools. No abdominal distention. UROLOGIC: No burning urination. No hematuria. She has some microscopic hematuria, she scheduled to see urologist in the near future. MUSCULOSKELETAL: No joint pain, No joint swelling, no muscle weakness. HEMATOLOGIC: she has low blood count, earlier in June 2016, she was seen by Dr. Coe. NEUROLOGIC: No seizures, no focal weakness, no speech difficulty, No memory disturbances. No tingling or numbness of the extremities. PSYCHRIATRIC: No depression. No anxiety. No psychosis. PAST MEDICAL/SURGICAL HISTORY: - Chronic renal insufficiency, hypothyroidism, DJD, allergic rhinitis, hypertension, hyperlipidemia. - Rosacea, - She had a partial mastectomy in the past. SOCIAL HISTORY: non-smoker, denies any ETOH abuse. She lives by herself, has 5 daughters. She is . She ambulates with the help of the walker. FAMILY HISTORY: no significant family history. Her mom at the age of 61 because of [place]. Dad at the age of 82 because of stroke in [place]. MEDICATIONS: please review her chart for detail list of medications. ALLERGY: please review her chart for detail list of allergic medications. In [facility] record, it is reported to have allergic to diazepam, doxycycline, morphine. PHYSICAL EXAMINATION: - Alert and oriented x3, thin built woman, not in any distress. - HEENT: no icterus, no pallor, Throat: Normal. Injury lew in the left frontal region noted. - Neck: No palpable cervical lymphadenopathy. - Chest: clear to auscultation. - Abdomen: soft, nontender, no hepatomegaly, no splenomegaly. - No focal neuro deficit. - Extremities: no finger clubbing, no leg edema. Bruising involving the upper extremities with the trivial injury present. LABS: Blood workup done on 10/16/2017: - WBC 3200, H&H of 10.4/30.4, Platelet count of 161,000, ANC 2900, Absolute Lymphocyte count 150. - BUN/creatinine: 29/1.0, normal liver function test. Calcium 8.8. - Normal PT and PTT. - WBC 1200, H&H of 8.7/26.7, Platelet count of 1 54,000, ANC 840, Absolute Lymphocyte count 120 (10/17/2017). IMAGING: - CT scan of the head done on admission showed no acute intracranial changes. - Chest x-ray negative. - Bilateral carotid Doppler evaluation --> No hemodynamically significant stenosis noted. ASSESSMENT AND PLAN: 82-year-old female, who is admitted at [facility] following recent the injury to the left frontal region which required suturing, she passed out and now she's admitted for further evaluation , blood workup done recently showed pancytopenia, I reviewed her blood workup done in the past, earlier about 1 year back she was seen by my partner Dr. Coe for low white blood cell count, antineutrophil antibody was reported to be negative at that time. Now has progressive neutropenia and the significant lymphocytopenia, normal platelet count, hemoglobin level dropped down to around 8.7 g/dL at this time. Earlier blood workup done few months back at [facility] showed B12 level close to the lower limit of normal, no evidence of iron deficient noted at that time. She does not have any palpable lymphadenopathy, no splenomegaly, no history of EtOH abuse. I would like to have additional workup for worsening anemia and leukopenia: - Reticulocyte count, LDH, B12, folic acid, iron profile, ferritin, It is possible that she may have a primary bone marrow disorder in the form of MDS and that will require bone marrow evaluation, I discussed with them regarding the bone marrow that can be considered as an outpatient in her case. Thanks for the consultation. Ruben Herron MD Hem/Onc Past Medical/Surgical History Medical Problems: (1) Benign hypertension Status: Chronic (2) Chronic Kidney Disease, Stage Iii (Moderate) Status: Chronic (3) Concussion Status: Acute (4) Elevated troponin Status: Acute (5) Hypothyroidism Nos Status: Chronic (6) Syncope Status: Acute Social History Smoking Status: Never Smoker Marital Status: Housing Status: lives alone Occupation Status: retired Allergies Coded Allergies: Beclomethasone (Verified Allergy, Unknown, ?, 10/16/17) Diazepam (Verified Allergy, Unknown, ?, 10/16/17) Codeine (Verified Adverse Reaction, Mild, MILD CONFUSION, 10/16/17) Current Inpatient Medications Current Inpatient Medications Medications (Trade) Dose Ordered Sig/Stephen Route Start Time Stop Time Status Last Admin Dose Admin Heparin Sodium (Porcine) (Heparin Sq 5000 Unit/0.5ml) 5,000 unit Q12 SQ 10/16/17 21:00 11/15/17 20:59 10/18/17 07:53 5,000 UNIT Acetaminophen (Tylenol Tab) 650 mg Q4H PRN PO 10/16/17 12:15 11/15/17 12:14 Ondansetron HCl (Zofran Inj) 4 mg Q6H PRN IV 10/16/17 12:15 11/15/17 12:14 Aspirin (Ecotrin Tab) 81 mg DAILY PO 10/17/17 09:00 11/16/17 08:59 10/18/17 07:50 81 MG Atorvastatin Calcium (Lipitor Tab) 10 mg DAILY PO 10/17/17 09:00 11/16/17 08:59 10/18/17 07:51 10 MG Cyclobenzaprine HCl (Flexeril Tab) 5 mg TID PRN PO 10/16/17 12:30 11/15/17 12:29 Hydroxyzine HCl (Vistaril Tab) 10 mg Q6 PRN PO 10/16/17 12:30 11/15/17 12:29 Levothyroxine Sodium (Synthroid Tab) 75 mcg DAILYBB PO 10/17/17 06:00 11/16/17 05:59 10/18/17 05:49 75 MCG Loratadine (Claritin Tab) 10 mg DAILY PRN PO 10/16/17 12:30 11/15/17 12:29 Tramadol HCl (Ultram Tab) 25 mg Q6H PRN PO 10/16/17 12:30 11/15/17 12:29 Amlodipine Besylate (Norvasc Tab) 10 mg DAILY PO 10/17/17 09:00 11/16/17 08:59 10/18/17 07:51 10 MG Miscellaneous (Iv Fluids Completed) 1 ea PRN PRN N/A 10/16/17 13:00 10/16/18 12:59 Atenolol (Tenormin Tab) 50 mg HS PO 10/16/17 21:00 11/15/17 20:59 10/17/17 21:46 50 MG Physical Exam Date Time Temp Pulse Resp B/P (MAP) Pulse Ox O2 Delivery O2 Flow Rate FiO2 10/18/17 08:00 Room Air 10/18/17 07:44 36.6 64 18 118/68 (85) 97 Room Air 10/18/17 04:07 Room Air 10/18/17 03:49 37.0 68 17 149/65 (93) 96 Room Air 10/18/17 00:05 Room Air 10/17/17 23:52 36.5 70 17 149/67 (94) 95 Room Air 10/17/17 20:00 Room Air 10/17/17 18:58 36.4 68 20 108/63 (78) 98 Room Air 10/17/17 16:00 Room Air 10/17/17 15:22 36.5 72 18 166/73 (104) 98 Room Air 10/17/17 12:00 Room Air 10/17/17 11:34 36.7 68 18 139/67 (91) 97 Room Air Laboratory Results Last 24 Hours Test 10/17/17 12:49 10/18/17 05:54 White Blood Count 1.25 K/uL Red Blood Count 3.15 M/uL Hemoglobin 8.7 g/dL Hematocrit 26.7 % Mean Corpuscular Volume 84.8 fL Mean Corpuscular Hemoglobin 27.6 pg Mean Corpuscular Hemoglobin Concent 32.6 g/dl Platelet Count 154 K/uL Mean Platelet Volume 9.8 fL Neutrophils (%) (Auto) 67.2 % 71.8 % Lymphocytes (%) (Auto) 9.6 % 7.0 % Monocytes (%) (Auto) 14.4 % 10.2 % Eosinophils (%) (Auto) 8.0 % 9.4 % Basophils (%) (Auto) 0.8 % 0.8 % Neutrophils # (Auto) 0.84 K/uL 0.92 K/uL Lymphocytes # (Auto) 0.12 K/uL 0.09 K/uL Monocytes # (Auto) 0.18 K/uL 0.13 K/uL Eosinophils # (Auto) 0.10 K/uL 0.12 K/uL Basophils # (Auto) 0.01 K/uL 0.01 K/uL RDW Standard Deviation 50.5 fL RDW Coefficient of Variation 16.3 % Immature Granulocyte % (Auto) 0.0 % 0.8 % Immature Granulocyte # (Auto) 0.00 K/uL 0.01 K/uL Large Platelets 1+ Anisocytosis PRESENT Ovalocytes 1+ Sodium Level 138 mmol/L Potassium Level 4.1 mmol/L Chloride Level 107 mmol/L Carbon Dioxide Level 27 mmol/L Anion Gap 4.0 mmol/L Blood Urea Nitrogen 17 mg/dl Creatinine 0.83 mg/dl Est Creatinine Clear Calc Drug Dose 42.3 ml/min Estimated GFR () 75.6 Estimated GFR (Non- 65.2 BUN/Creatinine Ratio 20.7 Random Glucose 118 mg/dl Calcium Level 8.2 mg/dl Magnesium Level 2.0 mg/dl Total Bilirubin 0.7 mg/dl Aspartate Amino Transf (AST/SGOT) 27 U/L Alanine Aminotransferase (ALT/SGPT) 22 U/L Alkaline Phosphatase 97 U/L Total Protein 5.9 gm/dl Albumin 2.9 gm/dl Globulin 3.0 gm/dl Albumin/Globulin Ratio 1.0
[2017-10-18 11:36] LABS: RETIC COUNT % 1.8 % (0.5-2.0)
[2017-10-18 11:39] VITALS: BP 96/55; PULSE 62; TEMP 36.8; O2SAT 96
[2017-10-18 11:44] LABS: HEMATOCRIT 25.4 % (37-47); HEMOGLOBIN 8.5 g/dL (12.0-16.0); MEAN CELL VOLUME 84.1 fL (80-100); MEAN CORPUSCULAR HEMOGLOBIN 28.1 pg (25-34); MEAN CORPUSCULAR HGB CONC 33.5 g/dl (32-36); RED CELL DISTRIBUTION WIDTH CV 16.2 % (11.5-14.5); RED CELL DISTRIBUTION WIDTH SD 49.9 fL (36.4-46.3); WHITE BLOOD COUNT 1.28 K/uL (4.8-10.8)
[2017-10-18 11:45] LABS: MEAN PLATELET VOLUME 9.8 fL (7.4-10.4); PLATELET COUNT 142 K/uL (130-400)
--- NOTE | 2017-10-18 11:50 | ECHOCARDIOGRAM REPORT ---
*NOTICE TO RECEIVING DEMOCRAT AGENCY This information is strictly Confidential and protected under [place] law. [place] law prohibits you from making any further disclosure of this information unless further disclosure is expressly permitted by the written consent of the person to whom it pertains or is authorized by law. A general authorization for the release of medical or other information is not sufficient for this purpose. Hospital accepts no responsibility if the information is made available to any other person, INCLUDING THE PATIENT. Interpretation Summary * Name: ANDREA ZAMUDIO Study Date: 10/18/2017 09:10 AM BP: 118/68 mmHg * Patient Location: C.2T\S\S244\S\1 HR: 64 * : 1935 (M/d/yyyy) Gender: Female Height: 63 in * Age: 82 yrs Ethnicity: [place] Weight: 116 lb * Ordering Physician: Wilver Aleman * Referring Physician: Self, Referred * Performed By: Ana Maria Fields RDCS * * Reason For Study: SYNCOPE * BSA: 1.5 m2 * The study was technically adequate. * -- Conclusions -- * There is mild concentric left ventricular hypertrophy. * The left ventricular wall motion is normal. * Left ventricular systolic function is normal. * The LV Ejection Fraction = 55-60%. * There is severe mitral annular calcification. * There is trace mitral regurgitation. * Grade I diastolic dysfunction, (abnormal relaxation pattern). Procedure Details * A complete two-dimensional transthoracic echocardiogram was performed (2D, M-mode, Doppler and color flow Doppler). Left Ventricle * The left ventricle is normal in size. * There is mild concentric left ventricular hypertrophy. * Ejection Fraction = 55-60%. * Left ventricular systolic function is normal. * The left ventricular wall motion is normal. Right Ventricle * The right ventricle is normal size. * The right ventricular systolic function is normal as assessed by tricuspid annular plane systolic excursion (TAPSE) (normal >1.5 cm). Atria * The left atrium is mildly dilated. * Right atrial size is normal. * There is no evidence of atrial septal defect, but resolution does not allow assessment for a patent foramen ovale. Mitral Valve * There is severe mitral annular calcification. * There is no mitral valve stenosis. * There is trace mitral regurgitation. Tricuspid Valve * The tricuspid valve is normal. * There is no tricuspid stenosis. * Significant tricuspid regurgitation is absent. Aortic Valve * The aortic valve is trileaflet. * Aortic stenosis is absent. * There is no significant aortic regurgitation. Pulmonic Valve * The pulmonary valve is not well seen, but the Doppler examination is normal without significant regurgitation or stenosis. Great Vessels * The aortic root and proximal ascending aorta are normal sized. Pericardium/Pleural * There is no pericardial effusion. Great Vessels * Normal inferior vena cava diameter and respiratory variation suggests normal central venous pressure. Left Ventricular Diastolic Function * Grade I diastolic dysfunction, (abnormal relaxation pattern). MMode 2D Measurements and Calculations IVSd 1.3 cm IVSs 1.7 cm LVIDd 2.5 cm LVIDs 1.9 cm LVPWd 1.2 cm LVPWs 1.4 cm IVS/LVPW 1.1 FS 25.6 % EDV(Teich) 22.2 ml ESV(Teich) 10.5 ml EF(Teich) 52.7 % EDV(cubed) 15.5 ml ESV(cubed) 6.4 ml EF(cubed) 58.9 % % IVS thick 34.9 % % LVPW thick 22.2 % LV mass(C)d 87.0 grams LV mass(C)dI 56.7 grams/m\S\2 LV mass(C)s 98.4 grams LV mass(C)sI 64.1 grams/m\S\2 SV(Teich) 11.7 ml SI(Teich) 7.6 ml/m\S\2 SV(cubed) 9.1 ml SI(cubed) 5.9 ml/m\S\2 Ao root diam 2.9 cm Ao root area 6.6 cm\S\2 LA dimension 4.0 cm LA/Ao 1.4 LVAd ap4 23.4 cm\S\2 LVLd ap4 6.6 cm EDV(MOD-sp4) 67.6 ml EDV(sp4-el) 70.1 ml LVAs ap4 15.1 cm\S\2 LVLs ap4 6.3 cm ESV(MOD-sp4) 31.1 ml ESV(sp4-el) 30.7 ml EF(MOD-sp4) 54.0 % EF(sp4-el) 56.2 % LVAd ap2 20.3 cm\S\2 LVLd ap2 6.6 cm EDV(MOD-sp2) 49.5 ml EDV(sp2-el) 53.2 ml LVAs ap2 12.1 cm\S\2 LVLs ap2 5.4 cm ESV(MOD-sp2) 22.0 ml ESV(sp2-el) 23.1 ml EF(MOD-sp2) 55.5 % EF(sp2-el) 56.6 % LVLd %diff -1.34 % EDV(MOD-bp) 58.3 ml LVLs %diff -17.14 % ESV(MOD-bp) 26.1 ml EF(MOD-bp) 55.2 % SV(MOD-sp4) 36.5 ml SI(MOD-sp4) 23.8 ml/m\S\2 SV(MOD-sp2) 27.4 ml SI(MOD-sp2) 17.9 ml/m\S\2 SV(MOD-bp) 32.2 ml SI(MOD-bp) 21.0 ml/m\S\2 SV(sp4-el) 39.4 ml SI(sp4-el) 25.7 ml/m\S\2 SV(sp2-el) 30.1 ml SI(sp2-el) 19.6 ml/m\S\2 Doppler Measurements and Calculations MV E max barrie 95.1 cm/sec MV A max barrie 132.7 cm/sec MV E/A 0.72 MV dec time 0.39 sec Ao V2 max 147.8 cm/sec Ao max PG 8.7 mmHg Ao max PG (full) 3.5 mmHg LV V1 max PG 5.2 mmHg LV V1 max 114.0 cm/sec TR max barrie 234.2 cm/sec
--- NOTE | 2017-10-18 12:42 | Progress Note ---
Internal Med Progress Note Date of Service: Oct 18, 2017. Provider Documentation: SUBJECTIVE: Patient seen at the bedside. Doing well. Denies pain. No fever OBJECTIVE: HEENT: no bleeding from scalp extremities. NECK: Supple. No JVD, no bruit. CHEST: Clear to auscultate bilaterally. HEART: S1, S2 regular. No murmur appreciated. ABDOMEN: Soft, benign, nontender, no organomegaly. Bowel sounds present. Neuro: awake, oriented x3. ASSESSMENT & PLAN: CT head 1. No acute intracranial abnormality. 2. Laceration over the left temporal region. No subjacent osseous injury. 3. Evidence of chronic sinusitis of the right maxillary sinus. CXR Atherosclerosis of the aortic arch. Cardiac silhouette normal in size. Mitral annular calcification may be present. Lungs and pleural spaces clear. Degenerative changes of the thoracic spine. Chronic deformity of the distal right clavicle and bilateral humeral heads. Upper abdomen normal. IMPRESSION: 1. No acute cardiopulmonary disease Ultrasound Carotid arteries No hemodynamically significant stenosis seen within the carotid arteries Seen by PT/OT Home w/ Home Health services (case management is making referral) 1) Head injury, seems to be secondary to mechanical near fall. The scalp area has been stitched and should have stitch removal in about 7-10 days, which can be done as an outpatient. 2) Syncope and collapse - no further symptoms in the hospital and normal carotid ultrasound and normal EKG. Echocardiogram is normal * The left ventricle is normal in size. * There is mild concentric left ventricular hypertrophy. * Ejection Fraction = 55-60%. * Left ventricular systolic function is normal. * The left ventricular wall motion is normal. Pancytopenia -Patient also has anemia which is stable after head injury and syncope with Hospital Hgb 10.4 on admission 10/16/17 to 8.3 and 8.7 on 10/17/17 and 8.5 on 10/18/17 -Platelets stable above 100,000 -Patient has low WBC and admission 3.27 on 10/16/17 and is 1.22 and 1.25 on . No neutropenic fever but is neutropenic with ANC around 1000. Labs on 10/18 with WBC 1.28 and ANC around 1177. -Patient was evaluated by Dr. Ruben Herron on Hematology/Oncology and additional iron studies appears to be adequate for iron stores and there is retic count. B12 and folate levels normal -If patient's lab numbers become more abnormal, it is possible that she may have a primary bone marrow disorder in the form of MDS and that will require bone marrow evaluation which can be considered as an outpatient as per Dr. Ruben Herron -Blood cultures were sent on 10/17/17 due to concerns on infectious source for the neutropenia but this differential is less likely given Dr. Herron's extensive review of previous blood work history and can be followed up by primary care doctor 5). Hypertension - Continue with current medications. 6). Hyperlipidemia - Continue with current replacement therapy. 7). Hypothyroidism - Continue with Synthroid 8) Gastrointestinal prophylaxis with Maalox, Mylanta as needed. 9) Deep venous thrombosis prophylaxis with subcutaneous heparin. 10) Code status: Full code. Patient to follow up with primary care doctor for: 10/28/2017 11:40 AM Alice Evans MD General Internal Medicine [facility] 11/25/2017 10:30 AM Alicia Bustillos MD Urology [facility] Please call [phone] to schedule follow up appointment with Dr. Ruben Herron Hematology/Oncology Patient is asked to return to the emergency room if experiences fevers, chills, unusual pain, blood loss, lightheadedness, loss of consciousness Vital Signs: Date Time Temp Pulse Resp B/P (MAP) Pulse Ox O2 Delivery O2 Flow Rate FiO2 10/18/17 12:00 Room Air 10/18/17 11:39 36.8 62 20 96/55 (69) 96 Room Air 10/18/17 08:00 Room Air 10/18/17 07:44 36.6 64 18 118/68 (85) 97 Room Air 10/18/17 04:07 Room Air 10/18/17 03:49 37.0 68 17 149/65 (93) 96 Room Air 10/18/17 00:05 Room Air 10/17/17 23:52 36.5 70 17 149/67 (94) 95 Room Air 10/17/17 20:00 Room Air 10/17/17 18:58 36.4 68 20 108/63 (78) 98 Room Air 10/17/17 16:00 Room Air 10/17/17 15:22 36.5 72 18 166/73 (104) 98 Room Air Lab Results: Results Past 24 Hours Test 10/18/17 05:54 10/18/17 11:18 Range/Units White Blood Count 1.28 4.8-10.8 K/uL Red Blood Count 3.02 4.2-5.4 M/uL Hemoglobin 8.5 12.0-16.0 g/dL Hematocrit 25.4 37-47 % Mean Corpuscular Volume 84.1 80-100 fL Mean Corpuscular Hemoglobin 28.1 25-34 pg Mean Corpuscular Hemoglobin Concent 33.5 32-36 g/dl Platelet Count 142 130-400 K/uL Mean Platelet Volume 9.8 7.4-10.4 fL Neutrophils (%) (Auto) 71.8 % Lymphocytes (%) (Auto) 7.0 % Monocytes (%) (Auto) 10.2 % Eosinophils (%) (Auto) 9.4 % Basophils (%) (Auto) 0.8 % Neutrophils # (Auto) 0.92 1.4-6.5 K/uL Lymphocytes # (Auto) 0.09 1.2-3.4 K/uL Monocytes # (Auto) 0.13 0.11-0.59 K/uL Eosinophils # (Auto) 0.12 0-0.5 K/uL Basophils # (Auto) 0.01 0-0.2 K/uL RDW Standard Deviation 49.9 36.4-46.3 fL RDW Coefficient of Variation 16.2 11.5-14.5 % Immature Granulocyte % (Auto) 0.8 % Immature Granulocyte # (Auto) 0.01 0.00-0.02 K/uL Anisocytosis PRESENT Ovalocytes 1+ Sodium Level 138 136-145 mmol/L Potassium Level 4.1 3.5-5.1 mmol/L Chloride Level 107 98-107 mmol/L Carbon Dioxide Level 27 21-32 mmol/L Anion Gap 4.0 3-11 mmol/L Blood Urea Nitrogen 17 7-18 mg/dl Creatinine 0.83 0.60-1.20 mg/dl Est Creatinine Clear Calc Drug Dose 42.3 ml/min Estimated GFR () 75.6 Estimated GFR (Non- 65.2 BUN/Creatinine Ratio 20.7 10-20 Random Glucose 118 70-99 mg/dl Calcium Level 8.2 8.5-10.1 mg/dl Magnesium Level 2.0 1.8-2.4 mg/dl Total Bilirubin 0.7 0.2-1 mg/dl Aspartate Amino Transf (AST/SGOT) 27 15-37 U/L Alanine Aminotransferase (ALT/SGPT) 22 12-78 U/L Alkaline Phosphatase 97 45-117 U/L Total Protein 5.9 6.4-8.2 gm/dl Albumin 2.9 3.4-5.0 gm/dl Globulin 3.0 2.5-4.0 gm/dl Albumin/Globulin Ratio 1.0 0.9-2 Absolute Reticulocyte Count 0.05 0.02-0.10 10^6/uL Percent Reticulocyte Count 1.8 0.5-2.0 % Iron Level 65 35-150 mcg/dl Total Iron Binding Capacity 272 250-450 mcg/dl Transferrin 226 200-360 mg/dl Transferrin % Saturation 20 15-50 % Ferritin 96.2 8.0-388.0 ng/ml Lactate Dehydrogenase 195 84-246 U/L Vitamin B12 Level 817 211-911 pg/mL Folate 10.59 >5.38 ng/mL Microbiology Results 10/17/17 Blood Culture, Received Pending 10/17/17 Blood Culture, Received Pending
--- NOTE | 2017-10-18 12:52 | Discharge Instructions ---
Discharge Instructions Date of Service Oct 18, 2017. Admission Reason for Admission: Head Injury W/O Fx Of Skull, Syncope And Collapse Discharge Discharge Diagnosis / Problem: Laceration (Head) Injury, Syncope, Pancytopenia Discharge Goals Goal(s): Improve function Activity Recommendations Activity Limitations: per Instructions/Follow-up section Lifting Limitations: until after follow-up appointment Exercise/Sports Limitations: until after follow-up appointment Shower/Bathe: no limitations . Instructions / Follow-Up Instructions / Follow-Up CT head 1. No acute intracranial abnormality. 2. Laceration over the left temporal region. No subjacent osseous injury. 3. Evidence of chronic sinusitis of the right maxillary sinus. CXR Atherosclerosis of the aortic arch. Cardiac silhouette normal in size. Mitral annular calcification may be present. Lungs and pleural spaces clear. Degenerative changes of the thoracic spine. Chronic deformity of the distal right clavicle and bilateral humeral heads. Upper abdomen normal. IMPRESSION: 1. No acute cardiopulmonary disease Ultrasound Carotid arteries No hemodynamically significant stenosis seen within the carotid arteries Seen by PT/OT Home w/ Home Health services (case management is making referral) 1) Head injury, seems to be secondary to mechanical near fall. The scalp area has been stitched and should have stitch removal in about 7-10 days, which can be done as an outpatient. 2) Syncope and collapse - no further symptoms in the hospital and normal carotid ultrasound and normal EKG. Echocardiogram is normal * The left ventricle is normal in size. * There is mild concentric left ventricular hypertrophy. * Ejection Fraction = 55-60%. * Left ventricular systolic function is normal. * The left ventricular wall motion is normal. Pancytopenia -Patient also has anemia which is stable after head injury and syncope with Hospital Hgb 10.4 on admission 10/16/17 to 8.3 and 8.7 on 10/17/17 and 8.5 on 10/18/17 -Platelets stable above 100,000 -Patient has low WBC and admission 3.27 on 10/16/17 and is 1.22 and 1.25 on . No neutropenic fever but is neutropenic with ANC around 1000. Labs on 10/18 with WBC 1.28 and ANC around 1177. -Patient was evaluated by Dr. Ruben Herron on Hematology/Oncology and additional iron studies appears to be adequate for iron stores and there is retic count. B12 and folate levels normal -If patient's lab numbers become more abnormal, it is possible that she may have a primary bone marrow disorder in the form of MDS and that will require bone marrow evaluation which can be considered as an outpatient as per Dr. Ruben Herron -Blood cultures were sent on 10/17/17 due to concerns on infectious source for the neutropenia but this differential is less likely given Dr. Herron's extensive review of previous blood work history and can be followed up by primary care doctor 5). Hypertension - Continue with current medications. 6). Hyperlipidemia - Continue with current replacement therapy. 7). Hypothyroidism - Continue with Synthroid 8) Gastrointestinal prophylaxis with Maalox, Mylanta as needed. 9) Deep venous thrombosis prophylaxis with subcutaneous heparin. 10) Code status: Full code. Patient to follow up with primary care doctor for: 10/28/2017 11:40 AM Alice Evans MD General Internal Medicine [facility] 11/25/2017 10:30 AM Alicia Bustillos MD Urology [facility] Please call [phone] to schedule follow up appointment with Dr. Ruben Herron Hematology/Oncology Patient is asked to return to the emergency room if experiences fevers, chills, unusual pain, blood loss, lightheadedness, loss of consciousness Current Hospital Diet Patient's current hospital diet: AHA Diet (Heart Healthy) Discharge Diet Recommended Diet: AHA Diet (Heart Healthy) Pending Studies Studies pending at discharge: yes List of pending studies: blood culture from 10/17/17 Laboratory Results 10/18/17 05:54 Red Blood Count 3.02, Mean Corpuscular Volume 84.1, Mean Corpuscular Hemoglobin 28.1, Mean Corpuscular Hemoglobin Concent 33.5, Mean Platelet Volume 9.8, Neutrophils (%) (Auto) 71.8, Lymphocytes (%) (Auto) 7.0, Monocytes (%) (Auto) 10.2, Eosinophils (%) (Auto) 9.4, Basophils (%) (Auto) 0.8, Neutrophils # (Auto ) 0.92, Lymphocytes # (Auto) 0.09, Monocytes # (Auto) 0.13, Eosinophils # (Auto ) 0.12, Basophils # (Auto) 0.01 10/18/17 05:54 Test 10/16/17 10:15 10/16/17 10:16 10/16/17 13:59 10/17/17 00:09 Direct Bilirubin 0.2 mg/dl (0-0.2) Lipase 136 U/L (73-393) Bedside Glucose 142 mg/dl (70-90) Prothrombin Time 10.7 SECONDS (9.0-12.0) Prothromb Time International Ratio 1.0 (0.9-1.1) Activated Partial Thromboplast Time 23.7 SECONDS (21.0-31.0) Partial Thromboplastin Ratio 0.9 Troponin I 0.028 ng/ml (0-0.045) Test 10/17/17 12:49 10/18/17 05:54 10/18/17 11:18 Large Platelets 1+ White Blood Count 1.28 K/uL (4.8-10.8) Red Blood Count 3.02 M/uL (4.2-5.4) Hemoglobin 8.5 g/dL (12.0-16.0) Hematocrit 25.4 % (37-47) Mean Corpuscular Volume 84.1 fL (80-100) Mean Corpuscular Hemoglobin 28.1 pg (25-34) Mean Corpuscular Hemoglobin Concent 33.5 g/dl (32-36) Platelet Count 142 K/uL (130-400) Mean Platelet Volume 9.8 fL (7.4-10.4) Neutrophils (%) (Auto) 71.8 % Lymphocytes (%) (Auto) 7.0 % Monocytes (%) (Auto) 10.2 % Eosinophils (%) (Auto) 9.4 % Basophils (%) (Auto) 0.8 % Neutrophils # (Auto) 0.92 K/uL (1.4-6.5) Lymphocytes # (Auto) 0.09 K/uL (1.2-3.4) Monocytes # (Auto) 0.13 K/uL (0.11-0.59) Eosinophils # (Auto) 0.12 K/uL (0-0.5) Basophils # (Auto) 0.01 K/uL (0-0.2) RDW Standard Deviation 49.9 fL (36.4-46.3) RDW Coefficient of Variation 16.2 % (11.5-14.5) Immature Granulocyte % (Auto) 0.8 % Immature Granulocyte # (Auto) 0.01 K/uL (0.00-0.02) Anisocytosis PRESENT Ovalocytes 1+ Anion Gap 4.0 mmol/L (3-11) Est Creatinine Clear Calc Drug Dose 42.3 ml/min Estimated GFR () 75.6 Estimated GFR (Non- 65.2 BUN/Creatinine Ratio 20.7 (10-20) Calcium Level 8.2 mg/dl (8.5-10.1) Magnesium Level 2.0 mg/dl (1.8-2.4) Total Bilirubin 0.7 mg/dl (0.2-1) Aspartate Amino Transf (AST/SGOT) 27 U/L (15-37) Alanine Aminotransferase (ALT/SGPT) 22 U/L (12-78) Alkaline Phosphatase 97 U/L (45-117) Total Protein 5.9 gm/dl (6.4-8.2) Albumin 2.9 gm/dl (3.4-5.0) Globulin 3.0 gm/dl (2.5-4.0) Albumin/Globulin Ratio 1.0 (0.9-2) Absolute Reticulocyte Count 0.05 10^6/uL (0.02-0.10) Percent Reticulocyte Count 1.8 % (0.5-2.0) Iron Level 65 mcg/dl (35-150) Total Iron Binding Capacity 272 mcg/dl (250-450) Transferrin 226 mg/dl (200-360) Transferrin % Saturation 20 % (15-50) Ferritin 96.2 ng/ml (8.0-388.0) Lactate Dehydrogenase 195 U/L (84-246) Vitamin B12 Level 817 pg/mL (211-911) Folate 10.59 ng/mL (>5.38) Date/Time Source Procedure Growth Status 10/17/17 15:51 Blood Blood Culture Pending Received Medical Emergencies . Who to Call and When: Medical Emergencies: If at any time you feel your situation is an emergency, please call 911 immediately. . Non-Emergent Contact Non-Emergency issues call your: Primary Care Provider, Oncologist Call Non-Emergent contact if: you have a fever, you have any medication questions . . "Provider Documentation" section prepared by Wilver Aleman. . VTE Core Measure Inpt VTE Proph given/why not?: Treatment not indicated (ambulatory), Contraindicated (anemia)
--- NOTE | 2017-10-18 12:58 | Discharge Summary ---
Discharge Summary Date of Service Oct 18, 2017. Discharge Summary Admission Date: Oct 16, 2017 at 12:18 Discharge Date: Oct 18, 2017 Discharge Disposition: Home with services Principal Diagnosis: Laceration (Head) Injury, Syncope, Pancytopenia Consultations: HPI: 82-year-old female, ambulating with the help of the walker, apparently she missed her walker and heater frontal area to the edge of the door with cut and local bleeding, she was seen in urgent care clinic where the area was featured, she was about to go home but then she passed out without any loss of consciousness and now she's admitted at [facility]. Hematology consulted because of low blood count. I reviewed her medical record, I saw her bedside, her daughter was also at bedside, her daughter gave good history in her case. Blood workup done at [facility] in the past: - WBC 2900, H&H of 13.7/40, Platelet count of 151,000, ANC 1000, Absolute Lymphocyte count 0.9 Blood workup done at [facility]: CBC result: - She had normal white blood cell count in the range of 8335-4642 earlier before October 2015. - White blood count dropped down to around 8134-1275 since April 2016. - WBC 3800, H&H of 13/40, Platelet count of 220,000, ANC 2014, Absolute Lymphocyte count 440 (06/13/2016). - Where is around improved to around 4000, ANC was around 3100, Absolute Lymphocyte count was on the lower side around 390 in 06/2016. - WBC 1800, H&H of 11.1/32.7, Platelet count of of 153,000 (06/28/2017) - WBC 1900, H&H of 10.3/30.7, Platelet count of 160,000, ANC 1500, Absolute Lymphocyte count 180 (07/05/2017) - WBC 2200, H&H of 10.7/31.1, MCV 84.1, Platelet count of 163,000, ANC 1600, Absolute Lymphocyte count 200 (07/21/2017). Blood workup done on 07/22/2017: - Peripheral smear reviewed by the pathologist showed a moderate leukopenia with extra lymphocytopenia and the ability neutropenia. No immature WBCs noted. - Vitamin B12 level --> 289. - Folic acid --> 10.6 - Urinalysis showed occult blood and no significant RBCs. - ANCA --> Negative - C-reactive protein --> Less than 1 - ESR --> 28 - ALINE --> Negative. - BUN/creatinine: 24/1.1 Blood workup done in in 06/2017: - M spike --> Negative (06/2017). - LDH --> 226 (06/2017). - Ferritin level --> 172, serum iron 59, TIBC 284, iron saturation 21%. - BUN/creatinine: 28/1.1, calcium 9.0. - Antineutrophil antibody --> Negative (06/2016). She denies any history of repeated infections, no bleeding from either sites other than some bruising following trivial injury, she is on aspirin therapy. No new cardiac or pulmonary symptoms, no leg edema. REVIEW OF SYSTEMS: GENERAL: No recent change in weight, no increasing weakness, fatigue present, no fever, sweats or chills. SKIN: No skin rash, easy bruising with trivial injury. HEAD: No headache at this time, no dizziness. EYES: No recent change in the vision, no diplopia, EARS: No earache ,no tinnitus, NOSE: No epistaxis, No nasal discharge or stuffiness, MOUTH: No sores, no dysphagia, no hoarseness of voice, NECK: No lumps, No swelling in thyroid area. No stiffness. PULMONARY: No cough, No shortness of breath, no hemoptysis, no chest pain, No wheezing. CARDIOVASCULAR: No anginal chest pain, no PND, no orthopnea. No palpitation, no leg edema. No syncope. GASTRIINTESTINAL: No abdominal pain, no nausea or vomiting. No diarrhea, No constipation. No blood in stool or black tarry stools. No abdominal distention. UROLOGIC: No burning urination. No hematuria. She has some microscopic hematuria, she scheduled to see urologist in the near future. MUSCULOSKELETAL: No joint pain, No joint swelling, no muscle weakness. HEMATOLOGIC: she has low blood count, earlier in June 2016, she was seen by Dr. Coe. NEUROLOGIC: No seizures, no focal weakness, no speech difficulty, No memory disturbances. No tingling or numbness of the extremities. PSYCHRIATRIC: No depression. No anxiety. No psychosis. PAST MEDICAL/SURGICAL HISTORY: - Chronic renal insufficiency, hypothyroidism, DJD, allergic rhinitis, hypertension, hyperlipidemia. - Rosacea, - She had a partial mastectomy in the past. SOCIAL HISTORY: non-smoker, denies any ETOH abuse. She lives by herself, has 5 daughters. She is . She ambulates with the help of the walker. FAMILY HISTORY: no significant family history. Her mom at the age of 61 because of [place]. Dad at the age of 82 because of stroke in [place]. MEDICATIONS: please review her chart for detail list of medications. ALLERGY: please review her chart for detail list of allergic medications. In [facility] record, it is reported to have allergic to diazepam, doxycycline, morphine. PHYSICAL EXAMINATION: - Alert and oriented x3, thin built woman, not in any distress. - HEENT: no icterus, no pallor, Throat: Normal. Injury lew in the left frontal region noted. - Neck: No palpable cervical lymphadenopathy. - Chest: clear to auscultation. - Abdomen: soft, nontender, no hepatomegaly, no splenomegaly. - No focal neuro deficit. - Extremities: no finger clubbing, no leg edema. Bruising involving the upper extremities with the trivial injury present. LABS: Blood workup done on 10/16/2017: - WBC 3200, H&H of 10.4/30.4, Platelet count of 161,000, ANC 2900, Absolute Lymphocyte count 150. - BUN/creatinine: 29/1.0, normal liver function test. Calcium 8.8. - Normal PT and PTT. - WBC 1200, H&H of 8.7/26.7, Platelet count of 1 54,000, ANC 840, Absolute Lymphocyte count 120 (10/17/2017). IMAGING: - CT scan of the head done on admission showed no acute intracranial changes. - Chest x-ray negative. - Bilateral carotid Doppler evaluation --> No hemodynamically significant stenosis noted. ASSESSMENT AND PLAN: 82-year-old female, who is admitted at [facility] following recent the injury to the left frontal region which required suturing, she passed out and now she's admitted for further evaluation , blood workup done recently showed pancytopenia, I reviewed her blood workup done in the past, earlier about 1 year back she was seen by my partner Dr. Coe for low white blood cell count, antineutrophil antibody was reported to be negative at that time. Now has progressive neutropenia and the significant lymphocytopenia, normal platelet count, hemoglobin level dropped down to around 8.7 g/dL at this time. Earlier blood workup done few months back at [facility] showed B12 level close to the lower limit of normal, no evidence of iron deficient noted at that time. She does not have any palpable lymphadenopathy, no splenomegaly, no history of EtOH abuse. I would like to have additional workup for worsening anemia and leukopenia: - Reticulocyte count, LDH, B12, folic acid, iron profile, ferritin, It is possible that she may have a primary bone marrow disorder in the form of MDS and that will require bone marrow evaluation, I discussed with them regarding the bone marrow that can be considered as an outpatient in her case. Thanks for the consultation. Ruben Herron MD Hem/Onc Pending Studies/Follow-Up: blood culture 10/17/17 Medication Reconciliation Continued Medications: Amlodipine Besylate (Amlodipine Besylate) 10 Mg Tab 10 MG PO DAILY Aspirin (Aspirin Ec) 81 Mg Tab 81 MG PO DAILY Atenolol (Tenormin) 50 Mg Tab 50 MG PO DAILY Atorvastatin (Atorvastatin Calcium) 10 Mg Tab 10 MG PO DAILY Cyclobenzaprine Hcl (Flexeril) 5 Mg Tab 5 MG PO TID PRN for spasms, TAB PRN Hydroxyzine HCl (Hydroxyzine HCl) 10 Mg Tab 10 MG PO Q6 PRN for Itching Levothyroxine Sodium (Levothyroxine Sodium) 75 Mcg Tab 75 MCG PO DAILY Loratadine (Claritin) 10 Mg Tab 10 MG PO DAILY PRN for Itching, TAB Tramadol (Ultram) 50 Mg Tab 25 MG PO Q6HR PRN, 0 Refills Admission Information HPI (per Admitting provider): CHIEF COMPLAINT: Left frontal head injury and also syncope and collapsed following that. HISTORY OF PRESENT COMPLAINT: She is an 82-year-old female with significant past medical history of chronic kidney disease stage III, hypothyroidism, osteoarthritis, allergic rhinitis, impaired fasting glucose, hypertension and hyperlipidemia, apparently also rosacea, apparently uses her walker at home to move around. She went to the bathroom and was going to get out, but most likely she missed her walker and hit her left frontal area on the age of the door with a cut injury in that area. She was taken to the local urgent care center at [place] and there the area was sutured. There was a considerable amount of bleeding, as per the family members. After that while she was on a wheelchair to come around, she suddenly slumped backwards with loss of consciousness for about a few minutes, 5 minutes as per the daughter and at that time she looked very pale. She did not have any rolling of the eyes , no frothiness in the mouth, no movement of the extremities and she did not have any complaint before that episode. Following that episode when she came around, she did not have any residual effect from that. After that, she was rushed to the Emergency Room for further evaluation. In the ER, she is hemodynamically stable. Her CAT scan has been negative and other blood tests remained unremarkable except troponin minimally high at 0.07. From that point, she was admitted to telemetry unit for continuation of care. Physical Exam (per Admitting): PHYSICAL EXAMINATION: GENERAL: On examination in the Emergency Room, she was not having any acute distress. VITAL SIGNS: Temperature 36.9, pulse was 68, blood pressure 130/65 and saturation 95% on room air. HEENT: Only remarkable for status post stitches and bandage in the left forehead with a bandage there and generalized history of bruising, especially upper extremities. NECK: Supple. No JVD, no bruit. CHEST: Clear to auscultate bilaterally. HEART: S1, S2 regular. No murmur appreciated. ABDOMEN: Soft, benign, nontender, no organomegaly. Bowel sounds present. MUSCULOSKELETAL SYSTEM: Did not show any acute arthritis. CENTRAL NERVOUS SYSTEM: She was alert, awake, oriented x3. She did not have any focal sensory and/or motor deficit on examination. Hospital Course CT head 1. No acute intracranial abnormality. 2. Laceration over the left temporal region. No subjacent osseous injury. 3. Evidence of chronic sinusitis of the right maxillary sinus. CXR Atherosclerosis of the aortic arch. Cardiac silhouette normal in size. Mitral annular calcification may be present. Lungs and pleural spaces clear. Degenerative changes of the thoracic spine. Chronic deformity of the distal right clavicle and bilateral humeral heads. Upper abdomen normal. IMPRESSION: 1. No acute cardiopulmonary disease Ultrasound Carotid arteries No hemodynamically significant stenosis seen within the carotid arteries Seen by PT/OT Home w/ Home Health services (case management is making referral) 1) Head injury, seems to be secondary to mechanical near fall. The scalp area has been stitched and should have stitch removal in about 7-10 days, which can be done as an outpatient. 2) Syncope and collapse - no further symptoms in the hospital and normal carotid ultrasound and normal EKG. Echocardiogram is normal * The left ventricle is normal in size. * There is mild concentric left ventricular hypertrophy. * Ejection Fraction = 55-60%. * Left ventricular systolic function is normal. * The left ventricular wall motion is normal. Pancytopenia -Patient also has anemia which is stable after head injury and syncope with Hospital Hgb 10.4 on admission 10/16/17 to 8.3 and 8.7 on 10/17/17 and 8.5 on 10/18/17 -Platelets stable above 100,000 -Patient has low WBC and admission 3.27 on 10/16/17 and is 1.22 and 1.25 on . No neutropenic fever but is neutropenic with ANC around 1000. Labs on 10/18 with WBC 1.28 and ANC around 1177. -Patient was evaluated by Dr. Ruben Herron on Hematology/Oncology and additional iron studies appears to be adequate for iron stores and there is retic count. B12 and folate levels normal -If patient's lab numbers become more abnormal, it is possible that she may have a primary bone marrow disorder in the form of MDS and that will require bone marrow evaluation which can be considered as an outpatient as per Dr. Ruben Herron -Blood cultures were sent on 10/17/17 due to concerns on infectious source for the neutropenia but this differential is less likely given Dr. Herron's extensive review of previous blood work history and can be followed up by primary care doctor 5). Hypertension - Continue with current medications. 6). Hyperlipidemia - Continue with current replacement therapy. 7). Hypothyroidism - Continue with Synthroid 8) Gastrointestinal prophylaxis with Maalox, Mylanta as needed. 9) Deep venous thrombosis prophylaxis with subcutaneous heparin. 10) Code status: Full code. Patient to follow up with primary care doctor for: 10/28/2017 11:40 AM Alice Evans MD General Internal Medicine [facility] 11/25/2017 10:30 AM Alicia Bustillos MD Urology [facility] Please call [phone] to schedule follow up appointment with Dr. Ruben Herron Hematology/Oncology Patient is asked to return to the emergency room if experiences fevers, chills, unusual pain, blood loss, lightheadedness, loss of consciousness Total time spent on discharge = 60 minutes This includes examination of the patient, discharge planning, medication reconciliation, and communication with other providers. Discharge Instructions see above
[2017-10-18 13:10] VITALS: BP 96/55; PULSE 62; TEMP 36.8; O2SAT 96
[2017-10-19 15:10] VITALS: BP 130/68; PULSE 87; TEMP 36.6; O2SAT 100
== END 2017-10-18 13:43 | disposition home health service (06) ==
LOC: EDBD 10:04 → C.EDB 10:04 → C.2T 12:18 → ENRESERV 12:53 → CANRESERV 10-18 11:58 → CANBEDREQ 10-18 13:42
PROVIDERS: ADMIT Internal Medicine; ATTEND Hospitalist
DX: S09.8XXA Other specified injuries of head, initial encounter (principal); R55 Syncope and collapse; D61.818 Other pancytopenia; I10 Essential (primary) hypertension; N18.3 Chronic kidney disease, stage 3 (moderate); E03.9 Hypothyroidism, unspecified; M19.90 Unspecified osteoarthritis, unspecified site; Z90.711 Acquired absence of uterus with remaining cervical stump; Z79.82 Long term (current) use of aspirin; W19.XXXA Unspecified fall, initial encounter; Y92.29 Other specified public building as the place of occurrence of the external cause; Z82.49 Family history of ischemic heart disease and other diseases of the circulatory system; Z82.3 Family history of stroke; D64.9 Anemia, unspecified

== ENCOUNTER 2018-10-14 14:50 | Inpatient (IN) ==
[2018-10-14] MEDS ORDERED: SODIUM CHLORIDE 0.9% 1000ML 1,000 ML IV SCH (15:45)
--- NOTE | 2018-10-14 16:15 | Emergency Department Note ---
Entered by Dawna Johnston acting as a scribe for ED Provider Note CHIEF COMPLAINT: Flu-like symptoms HISTORY OF PRESENT ILLNESS: The patient is a 83 year old female who presents to the Emergency Room with complaints of persistent flu-like symptoms that began 1 week prior to arrival. The patient states that she has had a productive cough during this time. Per the patient's granddaughter, the patient was found this morning on the floor naked and confused. The patient's granddaughter states that the patient was up all night cleaning because "the wind was bringing dirt" into her bathroom. The patient denies a fall. The patient's granddaughter states that the patient has been confused over the past month. Per the patient's granddaughter, the patient got a skin tear while being removed from the house after being found. The patient states that she uses a walker. The patient's granddaughter states that the patient has a history of neutropenia, low platelets, hypertension, and hyperthyroidism. No medication was given in transfer. No aggravating or relieving factors. Pt denies LOC, headache, fevers, chills, diaphoresis, visual changes, slurring speech, runny nose, sore throat, leg pain, neck pain, chest pain, breathing difficulties, nausea, vomiting, diarrhea, abdominal pain, back pain, melena, hematochezia, urinary symptoms, numbness, weakness, lymphadenopathy, rash, or other complaints. REVIEW OF SYSTEMS: See HPI for pertinent positives and negatives. A total of ten systems were reviewed and were otherwise negative. PMHx/PSHx: Neutropenia, Hypertension, Hypothyroidism, and low platelets. SOCIAL HISTORY: Patient lives at home. PHYSICAL EXAM: GENERAL: Awake, alert, well-appearing, in no distress HENT: Normocephalic, atraumatic. Oropharynx unremarkable. EYES: Normal conjunctiva. Sclera non-icteric. NECK: Supple. No nuchal rigidity. FROM. No masses. RESPIRATORY: Clear to auscultation. No wheezes. No rales. Normal respiratory effort. CARDIAC: Normal rate. Normal rhythm. No murmurs. No rubs. Extremities warm and well perfused. Pulses equal. No JVD. GI: Soft, non-distended. No tenderness to palpation. No rebound or guarding. No masses. RECTAL: Deferred. MUSCULOSKELETAL: Atraumatic. Chest examination reveals no tenderness. The back is symmetrical on inspection without obvious abnormality. There is no CVA tenderness to palpation. No joint edema. LOWER EXTREMITIES: Calves are equal size bilaterally and non-tender. No edema. No discoloration. NEURO: Mildly confused sensorium. No sensory or motor deficits noted. SKIN: No rash or jaundice noted. There is a 9 cm skin tear to the left triceps and a 3 cm skin tear to the left forearm. EMERGENCY DEPARTMENT COURSE: 1508: Past medical records reviewed. The patient was evaluated in room C10, and a complete history and physical examination were performed. 170: I updated the patient and her family on the results. I repaired an additional 2 cm of skin tear that occurred from the tourniquet and lab draw. 1841: I discussed the case with Kimberly Beaver PA-C who states that she will further evaluate the patient. PROCEDURE: TISSUE ADHESIVE REPAIR: Location: Left arm Total length: 14 cm Complexity: Simple Verbal consent was obtained after the risks and benefits were explained, including but not limited to bleeding, scarring, infection, pain, and bone/joint /nerve damage. At this time, the risks of the procedure are less than the risks of NOT performing the procedure. A time out was taken and the correct patient and site identified. Copious irrigation was performed using tap water. The wound was explored for foreign bodies and none found. Debridement was not performed. The wound edges were approximated using gentle pressure and the tissue adhesive was applied in the standard fashion. Hemostasis and excellent approximation was achieved. Detailed wound care instructions and signs and symptoms of infection reviewed with the patient/family. No complications and the patient tolerated the procedure well. MEDICAL DECISION MAKING: Nursing notes reviewed and agree them. Additional history obtained from family. The patient's history was concerning for altered mental status. Differential diagnosis: Etiologies such as infection, hypoglycemia, electrolyte abnormalities, cardiac sources, intracerebral event, toxicologic, neurologic, as well as others were entertained. Physical examination: As above. Skin tear is noted. The patient was mildly confused but answering questions relatively well. Her family noted that she was better than she was at the house. ER treatment provided: IV Lock Normal saline hydration IV Rocephin On reassessment the patient felt better. Diagnostics interpretation by me: ECG: No ischemia The labs revealed unremarkable CBC. No neutropenia. Chemistry panel revealed dehydration. Urinalysis somewhat concerning. Imaging studies: CT scan of the head and chest x-ray performed. Chest x-ray negative. The patient has a sinusitis. Patient had some confusion. She has no headache or neck pain. She is not febrile. She does have a sinusitis. She has some mild rhabdomyolysis. She is dehydrated. Consultation: A consultation was placed with the hospitalist. The case was discussed and diagnostics were reviewed. The patient was evaluated in the ER for further treatment. IMPRESSION: Altered mental status Dehydration Mild Rhabdomyolysis Sinusitis PLAN: Admitted Impression & Plan Altered mental status, Dehydration, Rhabdomyolysis, Sinusitis Past Med/Surg History Medical History Hypertension (Chronic) Hypothyroidism (Chronic) Neutropenia (Chronic) Family History Other No significant family history Social History Current Living Situation: Alone current occupational status: retired Feels Safe at Home: Yes Smoking Status: Never smoker Results & Data Vital Signs Vital Signs - 24 hr 10/14/18 14:42 10/14/18 15:00 10/14/18 15:30 Temperature 36.9 C Temperature Source Oral Sepsis Recent Fever Within 48 Hours No Sepsis New/Unexplained Change in Mental Status No Sepsis Action Taken by Nursing No Action Required Pulse Rate 88 98 H 84 Pulse Rate [Apical] Pulse Rhythm [Apical] Pulse Strength [Apical] Respiratory Rate 17 20 21 Respiratory Effort / Characteristics Respiratory Depth Blood Pressure 138/62 138/62 107/65 Blood Pressure [Right Arm] Blood Pressure Mean 87 87 79 Blood Pressure Mean [Right Arm] Blood Pressure Position [Right Arm] Pulse Oximetry 95 95 97 Oxygen Delivery Method Room Air 10/14/18 17:15 10/14/18 19:34 10/14/18 21:16 Temperature Temperature Source Sepsis Recent Fever Within 48 Hours Sepsis New/Unexplained Change in Mental Status Sepsis Action Taken by Nursing Pulse Rate 85 Pulse Rate [Apical] 84 85 87 Pulse Rhythm [Apical] Regular Pulse Strength [Apical] Normal Respiratory Rate 22 25 H 28 H Respiratory Effort / Characteristics Non-Labored Spontaneous Respiratory Depth Normal Blood Pressure Blood Pressure [Right Arm] 156/93 H 157/69 H 124/60 Blood Pressure Mean Blood Pressure Mean [Right Arm] 114 98 81 Blood Pressure Position [Right Arm] Lying Pulse Oximetry 98 95 93 Oxygen Delivery Method Room Air Room Air Room Air 10/14/18 21:37 Temperature Temperature Source Sepsis Recent Fever Within 48 Hours Sepsis New/Unexplained Change in Mental Status Sepsis Action Taken by Nursing Pulse Rate Pulse Rate [Apical] 85 Pulse Rhythm [Apical] Pulse Strength [Apical] Respiratory Rate 18 Respiratory Effort / Characteristics Respiratory Depth Blood Pressure Blood Pressure [Right Arm] 142/62 H Blood Pressure Mean Blood Pressure Mean [Right Arm] 88 Blood Pressure Position [Right Arm] Sitting Pulse Oximetry 97 Oxygen Delivery Method Room Air Home Medications Current Medication List: was personally reviewed by me Laboratory Data Attestation: I reviewed the patient's lab results. Result diagrams: 10/14/18 16:15 10/14/18 16:15 Lab Results 10/14/18 10/14/18 10/14/18 Range/Units 15:11 16:15 16:15 WBC 4.57 L (4.8-10.8) K/uL RBC 4.53 (4.2-5.4) M/uL Hgb 12.6 (12.0-16.0) g/dL Hct 36.9 L (37-47) % MCV 81.5 (80-100) fL MCH 27.8 (25-34) pg MCHC 34.1 (32-36) g/dL RDW Std Deviation 45.5 (36.4-46.3) fL RDW Coeff of Rubi 15.2 H (11.5-14.5) % Plt Count 165 (130-400) K/uL MPV 10.1 (7.4-10.4) fL Immature Gran % (Auto) 0.4 % Neut % (Auto) 83.8 % Lymph % (Auto) 9.2 % Towner % (Auto) 6.6 % Eos % (Auto) 0.0 % Baso % (Auto) 0.0 % Immature Gran # (Auto) 0.02 (0.00-0.02) K/uL Neut # (Auto) 3.83 (1.4-6.5) K/uL Lymph # (Auto) 0.42 L (1.2-3.4) K/uL Towner # (Auto) 0.30 (0.11-0.59) K/uL Eos # (Auto) 0.00 (0-0.5) K/uL Baso # (Auto) 0.00 (0-0.2) K/uL Sodium 134 L (136-145) mmol/L Potassium 3.5 (3.5-5.1) mmol/L Chloride 100 (98-107) mmol/L Carbon Dioxide 25 (21-32) mmol/L Anion Gap 9.0 (3-11) BUN 27 H (7-18) mg/dl Creatinine 0.97 (0.6-1.2) mg/dl Est Cr Clr Drug Dosing 34.1 ml/min Est GFR ( Amer) 62.2 Est GFR (Non-Af Amer) 53.6 BUN/Creatinine Ratio 28.2 H (10-20) Glucose 114 H (70-99) mg/dl POC Glucose 135 H (70-99) Calcium 8.9 (8.5-10.1) mg/dl Magnesium 1.9 (1.8-2.4) mg/dl Total Bilirubin 0.8 (0.1-1) mg/dl AST 57 H (15-37) U/L ALT 33 (12-78) U/L Alkaline Phosphatase 125 H (45-117) U/L Total Creatine Kinase 893 H (26-192) U/L Troponin I 0.019 (0-0.045) ng/ml Total Protein 7.4 (6.4-8.2) gm/dl Albumin 2.7 L (3.4-5.0) gm/dl Globulin 4.7 H (2.5-4.0) gm/dl Albumin/Globulin Ratio 0.6 L (0.9-2) TSH 2.450 (0.300-4.500) uIu/ml Urine Color Urine Appearance (Clear) Urine pH (4.5-7.5) Ur Specific [place] (1.000-1.030) Urine Protein (Negative) Urine Glucose (UA) (Negative) Urine Ketones (Negative) Urine Blood (Negative) Urine Nitrite (Negative) Urine Bilirubin (Negative) Urine Urobilinogen (Negative) Ur Leukocyte Esterase (Negative) Urine WBC (Auto) (0-5) /hpf Urine RBC (Auto) (0-4) /hpf U Hyaline Cast (Auto) (0-5) /lpf U Epithel Cells (Auto) (0-5) /lpf Urine Bacteria (Auto) (Negative) Influenza Type A Ag (Neg) Influenza Type B Ag (Neg) 10/14/18 10/14/18 Range/Units 16:23 18:08 WBC (4.8-10.8) K/uL RBC (4.2-5.4) M/uL Hgb (12.0-16.0) g/dL Hct (37-47) % MCV (80-100) fL MCH (25-34) pg MCHC (32-36) g/dL RDW Std Deviation (36.4-46.3) fL RDW Coeff of Rubi (11.5-14.5) % Plt Count (130-400) K/uL MPV (7.4-10.4) fL Immature Gran % (Auto) % Neut % (Auto) % Lymph % (Auto) % Towner % (Auto) % Eos % (Auto) % Baso % (Auto) % Immature Gran # (Auto) (0.00-0.02) K/uL Neut # (Auto) (1.4-6.5) K/uL Lymph # (Auto) (1.2-3.4) K/uL Towner # (Auto) (0.11-0.59) K/uL Eos # (Auto) (0-0.5) K/uL Baso # (Auto) (0-0.2) K/uL Sodium (136-145) mmol/L Potassium (3.5-5.1) mmol/L Chloride (98-107) mmol/L Carbon Dioxide (21-32) mmol/L Anion Gap (3-11) BUN (7-18) mg/dl Creatinine (0.6-1.2) mg/dl Est Cr Clr Drug Dosing ml/min Est GFR ( Amer) Est GFR (Non-Af Amer) BUN/Creatinine Ratio (10-20) Glucose (70-99) mg/dl POC Glucose (70-99) Calcium (8.5-10.1) mg/dl Magnesium (1.8-2.4) mg/dl Total Bilirubin (0.1-1) mg/dl AST (15-37) U/L ALT (12-78) U/L Alkaline Phosphatase (45-117) U/L Total Creatine Kinase (26-192) U/L Troponin I (0-0.045) ng/ml Total Protein (6.4-8.2) gm/dl Albumin (3.4-5.0) gm/dl Globulin (2.5-4.0) gm/dl Albumin/Globulin Ratio (0.9-2) TSH (0.300-4.500) uIu/ml Urine Color Dark Yellow Urine Appearance Clear (Clear) Urine pH 5.5 (4.5-7.5) Ur Specific [place] 1.021 (1.000-1.030) Urine Protein 2+ H (Negative) Urine Glucose (UA) Negative (Negative) Urine Ketones 1+ H (Negative) Urine Blood 2+ H (Negative) Urine Nitrite Negative (Negative) Urine Bilirubin Negative (Negative) Urine Urobilinogen Negative (Negative) Ur Leukocyte Esterase Negative (Negative) Urine WBC (Auto) 1-5 (0-5) /hpf Urine RBC (Auto) 10-30 H (0-4) /hpf U Hyaline Cast (Auto) 10-30 H (0-5) /lpf U Epithel Cells (Auto) 10-20 H (0-5) /lpf Urine Bacteria (Auto) Negative (Negative) Influenza Type A Ag Neg for Influ A (Neg) Influenza Type B Ag Neg for Influ B (Neg) Administered Medications Sodium Chloride (Nss 1000ml) 1,000 mls @ 100 mls/hr IV .Q10H SARA Stop: 11/13/18 22:40 Last Admin: 10/14/18 23:17 Dose: 100 mls/hr Discontinued Medications Sodium Chloride (Nss 1000ml) 1,000 mls @ 125 mls/hr IV .Q8H SARA Stop: 10/14/18 23:44 Last Infusion: 10/14/18 23:17 Dose: 0 mls/hr Admin: 10/14/18 16:21 Dose: 125 mls/hr Ceftriaxone Sodium (Rocephin) 1,000 mg in 50 mls @ 100 mls/hr IV NOW STA Stop: 10/14/18 19:10 Last Infusion: 10/14/18 20:04 Dose: 0 mls/hr Admin: 10/14/18 19:36 Dose: 100 mls/hr Imaging Data Radiologist's Impression: Radiology results as stated below per my review and the radiologist's interpretation: CT head/brain wo con CLINICAL HISTORY: 83 years-old Female with AMS. Acutely altered mental status TECHNIQUE: Multiple axial CT images of the head were obtained without contrast. A dose lowering technique was utilized adhering to the principles of ALARA. CT DOSE: 537.48 mGy.cm COMPARISON: Head CT 10/16/2017. FINDINGS: No acute intracranial hemorrhage, midline shift, intracranial mass, hydrocephalus, territorial ischemia or abnormal extra-axial collection. Moderate atrophy. Senescent calcifications of the lentiform nuclei. Ill-defined hypodensities about the white matter suggest chronic microvascular ischemic changes. The calvarium is intact. Mastoid air cells and middle ear cavities are clear. Moderate to severe ethmoid sinus mucosal thickening. Moderate mucoperiosteal thickening about the maxillary sinuses with air-fluid levels suggests acute on chronic sinusitis. Moderate mucoperiosteal thickening of the sphenoid sinuses and frontal sinuses. Soft tissues and orbits are unremarkable. IMPRESSION: 1. No acute intracranial abnormality. 2. Paranasal sinus disease as above. The above report was generated using voice recognition software. It may contain grammatical, syntax or spelling errors. Electronically signed by: Riley Dallas M.D. 10/14/2018 5:13 PM XR chest 1V portable HISTORY: 83 years-old Female weakness acute weakness COMPARISON: Chest radiograph 10/16/2017 TECHNIQUE: Portable AP view of the chest FINDINGS: Cardiomediastinal and hilar silhouettes are unchanged. Dense mitral annular calcifications are noted. Lungs are hypoinflated with bronchovascular crowding. No pneumothorax, large pleural effusion or overt pulmonary edema. No lobar airspace consolidation. Advanced degenerative changes with chronic remodeling of the bilateral shoulders. Advanced degenerative changes are also noted about the spine. IMPRESSION: 1. No acute process. 2. Hypoinflation with bronchovascular crowding. The above report was generated using voice recognition software. It may contain grammatical, syntax or spelling errors. Electronically signed by: Riley Dallas M.D. 10/14/2018 5:55 PM ECG Data Attestation: I personally reviewed and interpreted this ECG as follows: Indication: altered mental status Rate (beats per minute): 86 Rhythm: normal sinus Findings: + other (LVH; poor R wave progression); no ST depression and no ST elevation Blood Pressure Blood Pressure Findings: Elevated blood pressure Blood Pressure Disposition: further management by hospitalist Discharge Plan Visit Data *Final* Discharge Date/Time: 10/14/18 21:47 Chief Complaint: Confusion Stated Complaint: FLU LIKE SX, CONFUSION ED Provider: Alonso Medrano Discharge Problem: Altered mental status, Dehydration, Rhabdomyolysis, Sinusitis Patient Disposition: Admitted As Inpatient Discharge Instructions Interventions: ED Discharge Assessment Last Done: 10/14/18 21:47 The scribe's documentation has been prepared under my direction and personally reviewed by me in its entirety. I confirm that the note above accurately reflects all work, treatment, procedures, and medical decision making performed by me.
[2018-10-14 16:36] LABS: Hematocrit (blood only) 36.9 % (37-47); Hemoglobin 12.6 g/dL (12.0-16.0); Immature Granulocytes # (auto) 0.02 K/uL (0.00-0.02); Immature Granulocytes % (auto) 0.4 %; Lymphocytes # (auto) 0.42 K/uL (1.2-3.4); Lymphocytes % (auto) 9.2 %; Mean Corpuscular Hgb Conc 34.1 g/dL (32-36); Mean Corpuscular Volume 81.5 fL (80-100); Mean Platelet Volume 10.1 fL (7.4-10.4); Monocytes % (auto) 6.6 %; Neutrophils # (auto) 3.83 K/uL (1.4-6.5); Neutrophils % (auto) 83.8 %; Platelet Count 165 K/uL (130-400); RDW Coefficient of Variation 15.2 % (11.5-14.5); RDW Standard Deviation 45.5 fL (36.4-46.3); Red Blood Count 4.53 M/uL (4.2-5.4); White Blood Count 4.57 K/uL (4.8-10.8)
[2018-10-14 16:56] LABS: Albumin Level 2.7 gm/dl (3.4-5.0); BUN Creatinine Ratio 28.2 (10-20); Calcium 8.9 mg/dl (8.5-10.1); Creatinine Clr Calc Pharmacy 34.1 ml/min; Est GFR (African American) 62.2; Est GFR (Non-African American) 53.6; Magnesium 1.9 mg/dl (1.8-2.4); Potassium 3.5 mmol/L (3.5-5.1)
[2018-10-14 17:07] LABS: Albumin Globulin Ratio 0.6 (0.9-2); Bilirubin,Total 0.8 mg/dl (0.1-1); Globulin 4.7 gm/dl (2.5-4.0); Total Protein 7.4 gm/dl (6.4-8.2); Troponin I 0.019 ng/ml (0-0.045)
--- NOTE | 2018-10-14 17:14 | CT Scan Report ---
CT head/brain wo con CLINICAL HISTORY: 83 years-old Female with AMS. Acutely altered mental status TECHNIQUE: Multiple axial CT images of the head were obtained without contrast. A dose lowering tech nique was utilized adhering to the principles of ALARA. CT DOSE: 537.48 mGy.cm COMPARISON: Head CT 10/16/2017. FINDINGS: No acute intracranial hemorrhage, midline shift, intracranial mass, hydrocephalus, territorial ischem ia or abnormal extra-axial collection. Moderate atrophy. Senescent calcifications of the lentiform nu clei. Ill-defined hypodensities about the white matter suggest chronic microvascular ischemic changes . The calvarium is intact. Mastoid air cells and middle ear cavities are clear. Moderate to severe eth moid sinus mucosal thickening. Moderate mucoperiosteal thickening about the maxillary sinuses with ai r-fluid levels suggests acute on chronic sinusitis. Moderate mucoperiosteal thickening of the sphenoi d sinuses and frontal sinuses. Soft tissues and orbits are unremarkable. IMPRESSION: 1. No acute intracranial abnormality. 2. Paranasal sinus disease as above. The above report was generated using voice recognition software. It may contain grammatical, syntax o r spelling errors. Electronically signed by: Riley Dallas M.D. 10/14/2018 5:13 PM
--- NOTE | 2018-10-14 17:56 | XRay Report ---
XR chest 1V portable HISTORY: 83 years-old Female weakness acute weakness COMPARISON: Chest radiograph 10/16/2017 TECHNIQUE: Portable AP view of the chest FINDINGS: Cardiomediastinal and hilar silhouettes are unchanged. Dense mitral annular calcifications are noted. Lungs are hypoinflated with bronchovascular crowding. No pneumothorax, large pleural effusion or ove rt pulmonary edema. No lobar airspace consolidation. Advanced degenerative changes with chronic remodeling of the bilateral shoulders. Advanced degenerati ve changes are also noted about the spine. IMPRESSION: 1. No acute process. 2. Hypoinflation with bronchovascular crowding. The above report was generated using voice recognition software. It may contain grammatical, syntax o r spelling errors. Electronically signed by: Riley Dallas M.D. 10/14/2018 5:55 PM
[2018-10-14 18:30] LABS: Appearance Urine Clear (Clear); Bacteria Urine Automated Negative (Negative); Bilirubin Urine Negative (Negative); Color Urine Dark Yellow; Glucose Urine UA Negative (Negative); Ketones Urine 1+ (Negative); Leukocyte Esterase Urine Negative (Negative); Nitrite Urine Negative (Negative); Protein Urine 2+ (Negative); Specific Gravity Urine 1.021 (1.000-1.030); Urobilinogen Urine Negative (Negative); pH Urine 5.5 (4.5-7.5)
[2018-10-14] MEDS ORDERED: cefTRIAXone SODIUM 1,000 MG/50 ML BAG IV STA (18:41)
[2018-10-14] MEDS ORDERED: NITROGLYCERIN SL 0.4 MG/TAB TAB SL PRN (22:41)
[2018-10-14] MEDS ORDERED: ALUMINUM/MAGNESIUM SUSP 30 ML UDC PO PRN (22:41)
[2018-10-14] MEDS ORDERED: POLYETHYLENE (MIRALAX) 17 GM PACK PO PRN (22:41)
[2018-10-14] MEDS ORDERED: ONDANSETRON INJ 2 MG/ML 2 ML VIAL IV PRN (22:41)
[2018-10-14] MEDS: SODIUM CHLORIDE 0.9% 1000ML 1,000 ML IV SCH (23:17)
--- NOTE | 2018-10-15 02:22 | History and Physical Report ---
DATE OF ADMISSION: 10/14/2018 CHIEF COMPLAINT: Confusion. HISTORY OF PRESENT ILLNESS: This is an 83-year-old female with past medical history significant for chronic kidney disease stage III, hypertension, hyperlipidemia, impaired fasting glucose, vitamin B12 deficiency, vitamin D deficiency, hypothyroidism, non-seasonal allergic rhinitis, generalized osteoarthrosis, patient also has history of thrombocytopenia, leukopenia followed with Hem-Onc, bone marrow biopsy done on 11/16/2017 showed hypercellular bone marrow otherwise unremarkable. Currently, checking CBC q. 6 weeks. Lives alone. Daughters live close by, was brought in by daughter because she was found confused. The patient was not lifting the phone and they came home, the patient was not able to open the door, the daughter opened the door and when they opened the door, the patient was sitting just in front of the door, seems somewhat confused, upper part of the body was somewhat naked. When talked to the patient she said, the last night the wind was howling and she thought her room was getting dirty and decided to clean it up. We did not know exactly what aspired, but right now, patient seems to be back to baseline. Alert and oriented, can tell her name, date of , knows that she is in the hospital. She is a little bit off the dates. One daughter is in the room, seems to be back to her baseline. The patient walks with help of a walker. Daughter brings the food. Currently, denies any headache, no blurred vision. She has some runny nose, no sore throat, no difficulty swallowing. Appetite is okay. Sleeps okay. No chest pain, no shortness of breath, no cough, no nausea, no abdominal pain. Normal bowel and bladder movements. In the ER, imaging studies showed possible sinusitis and urinalysis was positive for some blood and flu was negative. The patient is having some dry cough, says some cold like symptoms and cough for about a week. ALLERGIES: DIAZEPAM, DOXYCYCLINE, MORPHINE AND RELATED. PAST MEDICAL HISTORY: As mentioned above. PAST SURGICAL HISTORY: Partial hysterectomy for fibroids. MEDICATIONS: The patient is on clobetasol ointment to the affected area b.i.d., tramadol 50 mg p.o. q. 8 hours p.r.n., amlodipine 5 mg p.o. daily, metronidazole cream apply to face b.i.d., atenolol 50 mg p.o. daily, levothyroxine 88 mcg p.o. daily, vitamin C 500 mg p.o. daily, vitamin B12 1000 mcg p.o. daily, hydroxyzine 10 mg p.o. q. 6 hours p.r.n., loratadine 10 mg p.o. daily p.r.n., vitamin D 2000 units p.o. daily. FAMILY HISTORY: Significant for mother at age of 61 from [place]. Father had stroke and [place]. SOCIAL HISTORY: . No tobacco use. No alcohol, no drug use. REVIEW OF SYMPTOMS: As per HPI. Review of symptoms is negative. PHYSICAL EXAMINATION: GENERAL: The patient is of moderate built. The patient is old and frail, not in acute distress. VITAL SIGNS: Temperature 36.9, pulse 87, respiratory 28, blood pressure 124/60, oxygen 92% room air. HEENT: No pallor, no icterus. Pupils equal, round, and reactive to light. NECK: No JVD. No neck masses. CARDIOVASCULAR: S1, S2 heard, regular rate and rhythm, no murmur, no gallop. RESPIRATORY SYSTEM: Clear to auscultation bilaterally. No wheezing. No crackles. ABDOMEN: Soft, bowel sounds present. Nontender. No distention. CENTRAL NERVOUS SYSTEM: Cranial nerves II-XII grossly intact. Nonfocal. EXTREMITIES: No edema, no erythema seen. SKIN: Multiple skin bruises seen. LABORATORIES: WBC 4.5, hemoglobin 12.6, hematocrit 36.9, platelets 165. Sodium 134, potassium 3.5, chloride 100, bicarbonate 25, BUN 27, creatinine 0.9, serum glucose 114, calcium 8.9, total magnesium 1.9, total bilirubin 0.8, AST 257, ALT 33, alkaline phosphatase 125, total creatine kinase 893. Troponin-I 0.019. TSH is 2.4. Urinalysis positive for some blood and ketones. Influenza A and B negative. Chest x-ray: No acute process seen. CT of the head, no acute intracranial abnormality seen, paranasal sinus disease as above. EKG: Normal sinus rhythm, rate of 86, no significant change from previous EKG. ASSESSMENT AND PLAN: This is an 83-year-old female presents with confusion. 1. Confusion, could be from sinusitis or could be a possible questionable urinary tract infection. The patient lives alone, ambulates with a cane. Daughters live close by and checks on her regularly and gets the food for her. She was not answering the phone and when went and opened the door, she was just at the door, seems somewhat confused but right now she is back to her baseline . Rocephin was given in the ER which we will continue. Monitor on tele floor. PT/OT when stable, social service for discharge planning. Follow urine and blood cultures. 2. Cough, going on for a week. Noted for postnasal drip, antibiotics above. We will follow the response. 3. Hypertension. Continue home medication of amlodipine and atenolol. We will monitor blood pressure. 4. Hypothyroidism, continue Synthroid. 5. Vitamin B2 deficiency, continue supplement. 6. History of leukopenia and thrombocytopenia. Follows with Heme-Onc. Currently, platelets are okay. WBC improved to 4.57. She had bone marrow biopsy done in 10/2017 which was mostly unremarkable. Follows with Heme-Onc and gets CBC q. 6 weeks. 7. Mild rhabdomyolysis, CK of 893. Getting fluids and normal saline 100 mL total. Further repeat labs in a.m. 8. Mild elevation of AST and alkaline phosphatase. We will follow repeat labs. 9. Deep venous thrombosis prophylaxis, SCDs for now. 10. Disposition: Admit to med/surg with tele. PT, OT for discharge. Social service will help with discharge planning. 11. Code status: Do Not Resuscitate as per discussion with the patient and the daughter. LEE
[2018-10-15] MEDS: ACETAMINOPHEN 325 MG TAB PO PRN ×2 (05:21→23:30)
[2018-10-15] MEDS: LEVOTHYROXINE SODIUM 88 MCG TABLET PO SCH (05:22)
[2018-10-15 05:43] LABS: Basophils # (auto) 0.01 K/uL (0-0.2); Basophils % (auto) 0.3 %; Eosinophils # (auto) 0.05 K/uL (0-0.5); Eosinophils % (auto) 1.5 %; Hematocrit (blood only) 34.9 % (37-47); Hemoglobin 11.9 g/dL (12.0-16.0); Immature Granulocytes # (auto) 0.02 K/uL (0.00-0.02); Immature Granulocytes % (auto) 0.6 %; Lymphocytes # (auto) 0.35 K/uL (1.2-3.4); Lymphocytes % (auto) 10.8 %; Mean Corpuscular Hgb Conc 34.1 g/dL (32-36); Mean Corpuscular Volume 82.3 fL (80-100); Mean Platelet Volume 9.3 fL (7.4-10.4); Monocytes # (auto) 0.29 K/uL (0.11-0.59); Neutrophils # (auto) 2.52 K/uL (1.4-6.5); Neutrophils % (auto) 77.8 %; Platelet Count 143 K/uL (130-400); RDW Coefficient of Variation 15.5 % (11.5-14.5); RDW Standard Deviation 46.8 fL (36.4-46.3); Red Blood Count 4.24 M/uL (4.2-5.4); White Blood Count 3.24 K/uL (4.8-10.8)
[2018-10-15 05:58] LABS: BUN Creatinine Ratio 26.2 (10-20); Calcium 8.1 mg/dl (8.5-10.1); Creatinine Clr Calc Pharmacy 38.1 ml/min; Est GFR (African American) 70.9; Est GFR (Non-African American) 61.2; Magnesium 1.8 mg/dl (1.8-2.4); Potassium 3.5 mmol/L (3.5-5.1)
[2018-10-15 06:01] LABS: Albumin Level 2.2 gm/dl (3.4-5.0); Bilirubin Direct 0.3 mg/dl (0-0.2); Bilirubin,Total 0.7 mg/dl (0.1-1); Total Protein 6.5 gm/dl (6.4-8.2)
[2018-10-15] MEDS: CLOBETASOL PROPIONATE 0.05% OINT 15 GM TUBE EXT SCH ×2 (08:32→21:22)
[2018-10-15] MEDS: AMLODIPINE BESYLATE 5 MG TAB PO SCH (08:33)
[2018-10-15] MEDS: SODIUM CHLORIDE 0.9% 1000ML 1,000 ML IV SCH ×2 (08:33→13:49)
[2018-10-15] MEDS: ATENOLOL 50 MG TABLET PO SCH (08:33)
[2018-10-15] MEDS ORDERED: MAGNESIUM SULFATE / D5W 1 GM/100 ML BAG IV ONE (13:19)
[2018-10-15] MEDS ORDERED: POTASSIUM CHLORIDE 10 MEQ TABCR PO STA (13:20)
--- NOTE | 2018-10-15 14:46 | Hospitalist Progress Note ---
Date of Service October 15, 2018 Assessment & Plan (1) Altered mental status: This is a 83 year old patient who lives alone, ambulates with assisted device at baseline, and as per history of notes and patient and family that she had been feeling cold like symptoms and was cleaning at her house when she did not respond to the floor and appeared to be confused and on the floor Patient's mental status resolved rapidly on initial ED presentation ad admission day 1 and insisted that never fall down but found on head imaging to have chronic sinusitis and elevated creatinine kinase suggestive of mild rhabdomyolysis, CK of 893 Altered mental status -resolved chronic sinusitis /cough -no exposure to influenza, no pneumonia on admission CXR -started on ceftriaxone by admitting physician -likely can transition to oral antibiotics which will be started on 10/15/18 as augmentin Mild rhabdomyolysis, CK of 893, on admission -patient denies traumatic fall, but likely developed while she was on the floor at home -downtrending with IV fluids, continue IV fluids as 80 cc/hr -PT/OT No evidence of urinary tract infection on urine analysis Hypertension -Continue home medication of amlodipine and atenolol Hypothyroidism - continue Synthroid. Vitamin B12 deficiency -on B12 supplements, continue, check B12 levels History of leukopenia and thrombocytopenia She had bone marrow biopsy done in 10/2017 which was mostly unremarkable. Follows with Heme-Onc and gets CBC q. 6 weeks stable anemia liver enzymes without abnormal increase so far Deep venous thrombosis prophylaxis, SCDs Code status: Do Not Resuscitate Patient's daughter contacts (their phone numbers [phone] and [phone]) Subjective Patient seen and examined earlier with her 2 daughters at bedside (their phone numbers [phone] and [phone]) Patient mental status is baseline. Patient speaking well and follows directions Have been on IV fluids because of elevated creatinine. Denies shortness of breath or chest pain. Denies acute pain elsewhere Physical Exam 2 Vital Signs (Past 24 Hours): Last Vital Signs Temp 36.6 C 10/15/18 11:41 Pulse 67 10/15/18 11:41 Resp 18 10/15/18 11:41 BP 136/75 10/15/18 11:41 Pulse Ox 96 10/15/18 11:41 Constitutional: WD/WN, vitals as above Eyes: PERRL, conjunctivae normal, anicteric sclerae EOM intact bilaterally ENMT: external ear and nose normal, oropharynx normal Neck: normal visual inspection and trachea midline Respiratory: normal respiratory effort, lungs clear to auscultation Cardiovascular: RRR, no murmur, no edema Gastrointestinal (Abdomen): normal bowel sounds, soft, nontender, no hepatosplenomegaly Musculoskeletal: Head/Neck/Chest: normocephalic and head atraumatic Neurologic: PERRL, EOMI, accommodation nl, no face palsy, no dysarthria CN' s II-XI intact bilaterally Psychiatric: Orientation: alert and oriented x 3 _ (1) Altered mental status Altered mental status type: unspecified Coma depth: Coma timing: Qualified Code(s): R41.82 - Altered mental status, unspecified
[2018-10-15] MEDS: AMOXICILLIN/CLAVULANATE 500 MG TAB PO SCH (16:45)
[2018-10-15] MEDS ORDERED: SODIUM CHLORIDE 0.65% NA SOLN 45 ML (OCEAN) ONE (18:36)
[2018-10-15] MEDS ORDERED: SODIUM CHLORIDE 0.65% NA SOLN 45 ML (OCEAN) PRN (18:41)
[2018-10-15] MEDS ORDERED: cefTRIAXone SODIUM 1,000 MG in DEXTROSE 5% 50 ML IV SCH (20:00)
[2018-10-16] MEDS: SODIUM CHLORIDE 0.9% 1000ML 1,000 ML IV SCH (02:22)
[2018-10-16] MEDS: LEVOTHYROXINE SODIUM 88 MCG TABLET PO SCH (06:25)
[2018-10-16 07:31] LABS: Basophils # (auto) 0.01 K/uL (0-0.2); Basophils % (auto) 0.4 %; Eosinophils # (auto) 0.13 K/uL (0-0.5); Eosinophils % (auto) 5.1 %; Hematocrit (blood only) 34.6 % (37-47); Hemoglobin 11.4 g/dL (12.0-16.0); Immature Granulocytes # (auto) 0.05 K/uL (0.00-0.02); Lymphocytes # (auto) 0.25 K/uL (1.2-3.4); Lymphocytes % (auto) 9.8 %; Mean Corpuscular Hgb Conc 32.9 g/dL (32-36); Mean Corpuscular Volume 82.4 fL (80-100); Mean Platelet Volume 9.2 fL (7.4-10.4); Monocytes # (auto) 0.15 K/uL (0.11-0.59); Monocytes % (auto) 5.9 %; Neutrophils # (auto) 1.96 K/uL (1.4-6.5); Neutrophils % (auto) 76.8 %; Platelet Count 130 K/uL (130-400); RDW Coefficient of Variation 15.7 % (11.5-14.5); RDW Standard Deviation 47.4 fL (36.4-46.3); White Blood Count 2.55 K/uL (4.8-10.8)
[2018-10-16] MEDS: AMOXICILLIN/CLAVULANATE 500 MG TAB PO SCH ×3 (07:51→16:33)
[2018-10-16] MEDS: ATENOLOL 50 MG TABLET PO SCH (07:51)
[2018-10-16] MEDS: CLOBETASOL PROPIONATE 0.05% OINT 15 GM TUBE EXT SCH ×2 (07:51→20:13)
[2018-10-16] MEDS: AMLODIPINE BESYLATE 5 MG TAB PO SCH (07:51)
[2018-10-16 08:00] LABS: Albumin Level 1.9 gm/dl (3.4-5.0); BUN Creatinine Ratio 22.6 (10-20); Calcium 7.9 mg/dl (8.5-10.1); Creatinine Clr Calc Pharmacy 42.5 ml/min; Est GFR (African American) 80.9; Est GFR (Non-African American) 69.8; Potassium 3.6 mmol/L (3.5-5.1)
[2018-10-16 08:03] LABS: Albumin Globulin Ratio 0.5 (0.9-2); Bilirubin,Total 0.6 mg/dl (0.1-1); Globulin 4.2 gm/dl (2.5-4.0); Total Protein 6.1 gm/dl (6.4-8.2)
--- NOTE | 2018-10-16 10:04 | XRay Report ---
XR chest 2V routine HISTORY: 83 years-old Female rule out lung infiltrates acute shortness of breath COMPARISON: Chest radiograph 10/14/2018 TECHNIQUE: PA and lateral views of the chest FINDINGS: Cardiomediastinal and hilar silhouettes are unremarkable. The right hemidiaphragm elevation. Linear s ubsegmental left basilar opacities suggest atelectasis or scarring. No pneumothorax or pleural effusi on or overt pulmonary edema. Degenerative changes of the spine. Severe degenerative changes with english composition instructor jm remodeling of the bilateral shoulders. Calcification of the aorta. Lateral view is limited second natalie to positioning of the patient's upper extremities and rotation. IMPRESSION: Subsegmental left basilar opacities suggest atelectasis or scarring. The above report was generated using voice recognition software. It may contain grammatical, syntax o r spelling errors. Electronically signed by: Riley Dallas M.D. 10/16/2018 10:03 AM
--- NOTE | 2018-10-16 15:08 | Hospitalist Progress Note ---
Date of Service October 16, 2018 Assessment & Plan (1) Altered mental status: This is a 83 year old patient who lives alone, ambulates with assisted device at baseline, and as per history of notes and patient and family that she had been feeling cold like symptoms and was cleaning at her house when she did not respond to the floor and appeared to be confused and on the floor Patient's mental status resolved rapidly on initial ED presentation ad admission day 1 and insisted that never fall down but found on head imaging to have chronic sinusitis and elevated creatinine kinase suggestive of mild rhabdomyolysis, CK of 893 Altered mental status and confusion has resolved chronic sinusitis /cough -no exposure to influenza, no pneumonia on admission CXR -started on ceftriaxone by admitting physician -was transitioned to oral antibiotics which will be started on 10/15/18 as augmentin 500 mg TID and then spike a fever -repeat CXR on 10/16/18 with no evidence for pneumonia Mild rhabdomyolysis, CK of 893, on admission -patient denies traumatic fall, but likely developed while she was on the floor at home -resolved with IV fluids and Iv fluids stopped on 10/16/18 -PT/OT No evidence of urinary tract infection on urine analysis Hypertension -Continue home medication of amlodipine and atenolol Hypothyroidism - continue Synthroid. Vitamin B12 deficiency -has been on B12 supplements for B12 deficiency but check B12 levels shows more than adequate B12 levels and will hold B12 supplements as inpatient History of leukopenia and thrombocytopenia She had bone marrow biopsy done in 10/2017 which was mostly unremarkable. Follows with Heme-Onc and gets CBC q. 6 weeks stable anemia and thrombocytopenia liver enzymes without abnormal increase so far Deep venous thrombosis prophylaxis, SCDs Code status: Do Not Resuscitate Patient has multiple daughters (their phone numbers [phone] and [phone]) Subjective was transitioned to oral antibiotics which will be started on 10/15/18 as augmentin 500 mg TID and then spike a fever 38.1 celsius Patient reported that yesterday she had diaphoresis with the fever but today feeling much better Has been afebrile since documented fever episode denies shortness of breath or chest pain, Denies acute pain elsewhere. Physical Exam 2 Vital Signs (Past 24 Hours): Last Vital Signs Temp 36.9 C 10/16/18 07:42 Pulse 63 10/16/18 08:00 Resp 16 10/16/18 07:42 BP 156/67 H 10/16/18 07:42 Pulse Ox 96 10/16/18 09:25 Constitutional: WD/WN, vitals as above Eyes: PERRL, conjunctivae normal, anicteric sclerae EOM intact bilaterally ENMT: external ear and nose normal, oropharynx normal Neck: normal visual inspection and trachea midline Respiratory: normal respiratory effort, lungs clear to auscultation Cardiovascular: RRR, no murmur, no edema Gastrointestinal (Abdomen): normal bowel sounds, soft, nontender, no hepatosplenomegaly Musculoskeletal: Head/Neck/Chest: normocephalic and head atraumatic Neurologic: PERRL, EOMI, accommodation nl, no face palsy, no dysarthria CN' s II-XI intact bilaterally Psychiatric: Orientation: alert and oriented x 3 _ (1) Altered mental status Altered mental status type: unspecified Coma depth: Coma timing: Qualified Code(s): R41.82 - Altered mental status, unspecified
[2018-10-17] MEDS: LEVOTHYROXINE SODIUM 88 MCG TABLET PO SCH (06:08)
[2018-10-17] MEDS: AMLODIPINE BESYLATE 5 MG TAB PO SCH (08:25)
[2018-10-17] MEDS: AMOXICILLIN/CLAVULANATE 500 MG TAB PO SCH ×3 (08:25→17:10)
[2018-10-17] MEDS: ATENOLOL 50 MG TABLET PO SCH (08:25)
[2018-10-17] MEDS: CLOBETASOL PROPIONATE 0.05% OINT 15 GM TUBE EXT SCH ×2 (08:27→20:48)
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
[2018-10-17] MEDS ORDERED: AMLODIPINE BESYLATE 5 MG TAB PO ONE (17:00)
[2018-10-17 19:02] LABS: Prothrombin Time 10.3 Seconds (9.0-12.0)
[2018-10-17] MEDS ORDERED: ENOXAPARIN INJ 40 MG/0.4 ML SYR SQ SCH (21:00)
[2018-10-18] MEDS ORDERED: AMOXICILLIN/CLAVULANATE 500 MG TAB PO SCH
[2018-10-18] MEDS: LEVOTHYROXINE SODIUM 88 MCG TABLET PO SCH (06:13)
[2018-10-18] MEDS: CLOBETASOL PROPIONATE 0.05% OINT 15 GM TUBE EXT SCH (07:42)
[2018-10-18] MEDS: ATENOLOL 50 MG TABLET PO SCH (07:44)
[2018-10-18] MEDS: AMOXICILLIN/CLAVULANATE 500 MG TAB PO SCH ×2 (07:44→11:43)
[2018-10-18] MEDS ORDERED: AMLODIPINE BESYLATE 5 MG TAB PO SCH (09:00)
--- NOTE | 2018-10-28 10:31 | Discharge Summary ---
Date of Service October 28, 2018 Admission HPI Per Admitting Provider HISTORY OF PRESENT ILLNESS: This is an 83-year-old female with past medical history significant for chronic kidney disease stage III, hypertension, hyperlipidemia, impaired fasting glucose, vitamin B12 deficiency, vitamin D deficiency, hypothyroidism, non-seasonal allergic rhinitis, generalized osteoarthrosis, patient also has history of thrombocytopenia, leukopenia followed with Hem-Onc, bone marrow biopsy done on 11/16/2017 showed hypercellular bone marrow otherwise unremarkable. Currently, checking CBC q. 6 weeks. Lives alone. Daughters live close by, was brought in by daughter because she was found confused. The patient was not lifting the phone and they came home, the patient was not able to open the door, the daughter opened the door and when they opened the door, the patient was sitting just in front of the door, seems somewhat confused, upper part of the body was somewhat naked. When talked to the patient she said, the last night the wind was howling and she thought her room was getting dirty and decided to clean it up. We did not know exactly what aspired, but right now, patient seems to be back to baseline. Alert and oriented, can tell her name, date of , knows that she is in the hospital. She is a little bit off the dates. One daughter is in the room, seems to be back to her baseline. The patient walks with help of a walker. Daughter brings the food. Currently, denies any headache, no blurred vision. She has some runny nose, no sore throat, no difficulty swallowing. Appetite is okay. Sleeps okay. No chest pain, no shortness of breath, no cough, no nausea, no abdominal pain. Normal bowel and bladder movements. In the ER, imaging studies showed possible sinusitis and urinalysis was positive for some blood and flu was negative. The patient is having some dry cough, says some cold like symptoms and cough for about a week. Admission Exam Per Admitting Provider PHYSICAL EXAMINATION: GENERAL: The patient is of moderate built. The patient is old and frail, not in acute distress. VITAL SIGNS: Temperature 36.9, pulse 87, respiratory 28, blood pressure 124/60, oxygen 92% room air. HEENT: No pallor, no icterus. Pupils equal, round, and reactive to light. NECK: No JVD. No neck masses. CARDIOVASCULAR: S1, S2 heard, regular rate and rhythm, no murmur, no gallop. RESPIRATORY SYSTEM: Clear to auscultation bilaterally. No wheezing. No crackles. ABDOMEN: Soft, bowel sounds present. Nontender. No distention. CENTRAL NERVOUS SYSTEM: Cranial nerves II-XII grossly intact. Nonfocal. EXTREMITIES: No edema, no erythema seen. SKIN: Multiple skin bruises seen. Principal Diagnosis confusion-resolved sinusitis rhabdomyolysis Discharge Exam CONSTITUTIONAL: WNWD, vitals as above, generally well-appearing EYES: PERRL, normal conjuctivae, no scleral icterus ENT: external ear and nose normal, oropharynx clear, no TM abnormality, no maxillary or ethmoid sinus tenderness NECK: trachea midline, no lymphadenopathy RESPIRATORY: clear to auscultation bilaterally, no crackles, rales or wheezes, normal respiratory effort CARDIOVASCULAR: regular rate and rhythm, S1 and 2 heard without murmurs, gallops or rubs, no JVD, no peripheral edema GASTROINTESTINAL: normal bowel sounds, soft, nontender, nondistended MUSCULOSKELETAL: strength 5/5 throughout, head is normocephalic and atraumatic , neck supple SKIN: warm and dry, mild skin tears NEUROLOGIC: CN 2-12 grossly intact, normal cognition, normal speech PSYCHIATRIC: alert cooperative and oriented to person, place and time. Euthymic mood, makes good eye contact, language grossly intact, recent and remote memory grossly intact. Discharge Data Allergies Allergy/AdvReac Type Severity Reaction Status Date / Time beclomethasone Allergy Unknown ? Verified 10/14/18 17:21 diazepam Allergy Unknown ? Verified 10/14/18 17:21 codeine AdvReac Mild MILD Verified 10/14/18 17:21 CONFUSION Consultations 10/14/18 18:41 ED Decision to Admit Stat 10/14/18 22:41 Consult Case Management - Discharge Planning Routine Ordered Studies 10/14/18 15:33 CT head/brain wo con Stat Hospital Course (1) Altered mental status: (2) Rhabdomyolysis: (3) Sinusitis: (4) Hypothyroidism: (5) Leukopenia: (6) Thrombocytopenia: (7) HTN (hypertension): 83-year-old female presented to the emergency room with persistent flulike symptoms for 1 week. She was found on the floor naked and confused by family and was hallucinating. In the ER a 2 cm skin tear that occurred from the tourniquet and lab draw it was repaired. On arrival to the ER she was hemodynamically stable and afebrile oxygenating 95% on room air. Lab work was unremarkable aside from some possible mild dehydration with a BUN 27 creatinine 0.97. Glucose was normal. CK was 893. Troponin was 0.019, within normal range. Urinalysis was checked and negative for infection. Flu antigen was negative. She was administered 1 L of normal saline and started on Rocephin empirically. CT of the head revealed no acute intracranial abnormality with paranasal sinus disease present. Chest x-ray revealed no acute process with hypoinflation and bronchovascular crowding. An EKG revealed normal sinus rhythm with a rate of [address] depression or elevation. LVH and poor R wave progression were noted. She was admitted to the hospitalist service. Confusion was thought to be from sinusitis or questionably for urinary tract infection. The patient lives alone but has several daughters who check on her frequently. Rocephin was continued empirically for infection in light of cough ongoing for a week. She continued to get hydrated with normal saline in the setting of mild rhabdomyolysis. She continued to improve clinically. Leukopenia and thrombocytopenia were noted and outpatient review of records revealed this was chronic. The patient is status post bone marrow biopsy in October 2017 and followed by hematology/oncology as an outpatient with every 6 week CBCs. By hospital day 4 she was stable for discharge and was sent home on Augmentin therapy to finish the antibiotic course. Close follow-up with primary care doctor was recommended. Of note, confusion and hallucination resolved within the first day or 2 of hospitalization. At discharge she was mentating at baseline. Total Time Total Time Spent Total Time Spent (In Minutes): 60 Total Time Includes: Examination of the Patient, Discharge Planning, Medication Reconciliation and Communication With Other Providers Discharge Plan Discharge Items Patient Disposition: Home - Self-Care Reason For Visit: CONFUSION Discharge Diagnosis: confusion-resolved sinusitis rhabdomyolysis Condition: Good Discharge Goals: Improve function Activity: Resume your previous activity Non-emergency contact: Primary Care Provider Call non-emergency contact if: you have any medication questions, your symptoms worsen, your pain is not controlled and you have a fever Diet: Heart Healthy Addtl Provider Instructions: Please take all medications as instructed on discharge list below. It is recommended that you follow-up with your primary care provider within 1 week of discharge. It was a pleasure taking care of you! Please call if you have any questions or problems. You can reach a [facility] hospitalist on duty at [facility] 24 hours a day by calling [phone]. Take care of yourself. Nancy Rivers DO [facility] Hospitalist Prescriptions: New amlodipine 10 mg tablet 10 mg PO DAILY Qty: 30 RF: 1 Continue levothyroxine 88 mcg tablet 88 mcg PO DAILY RF: 0 clobetasol 0.05 % ointment 1 applic topical BID RF: 0 atenolol 50 mg tablet 50 mg PO DAILY RF: 0 Vitamin B-12 1,000 mcg 1,000 mcg PO DAILY RF: 0 Vitamin D3 1,000 units 2,000 units PO DAILY RF: 0 ascorbic acid (vitamin C) 500 mg 500 mg PO DAILY RF: 0 hydroxyzine HCl 10 mg 10 mg PO Q6H PRN (Reason: Itching) RF: 0 loratadine 10 mg 10 mg PO DAILY PRN (Reason: Allergic Symptoms) RF: 0 Discontinued amlodipine 5 mg tablet 5 mg PO DAILY RF: 0 Visit Report Forms: My [facility] Portal Stand-Alone Forms: My [facility] Discharge Orders: Discharge Order (Routine); Ordered 10/18/18 Ordered By: Nancy Rivers Admission Data Admit Date/Time: 10/16/18 09:28 Attending Provider: Nancy Rivers Admit Provider: Felton Church Primary Care Provider: Alice Evans Service: Medical Other Interventions: Discharge Summary Assessment (RN) Last Done: 10/18/18 12:26 DC Date/Time DO NOT enter until pt leaves facility: 10/18/18 13:54
== END 2018-10-18 13:54 | disposition home or self-care (01) | DRG 558 ==
LOC: ED 14:50 → INTOOBSV 21:08 → 2N 21:08 → SUATTDRO 10-16 09:28

== ENCOUNTER 2019-03-03 20:32 | Inpatient (IN) ==
--- OUTSIDE RECORDS SUMMARY | 2019-03-03 20:35 | External Medical Summary | Continuity of Care Document ---
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
[2019-03-03] MEDS ORDERED: PANTOprazole 80 MG in DEXTROSE 5% 100 ML IV SCH (21:30)
[2019-03-03 21:41] LABS: Basophils # (auto) 0.02 K/uL (0-0.2); Basophils % (auto) 0.9 %; Eosinophils # (auto) 0.17 K/uL (0-0.5); Eosinophils % (auto) 7.5 %; Hematocrit (blood only) 39.1 % (37-47); Hemoglobin 13.4 g/dL (12.0-16.0); Immature Granulocytes # (auto) 0.01 K/uL (0.00-0.02); Immature Granulocytes % (auto) 0.4 %; Lymphocytes % (auto) 4.4 %; Mean Corpuscular Hgb Conc 34.3 g/dL (32-36); Mean Corpuscular Volume 81.1 fL (80-100); Mean Platelet Volume 9.4 fL (7.4-10.4); Monocytes # (auto) 0.27 K/uL (0.11-0.59); Monocytes % (auto) 11.9 %; Neutrophils # (auto) 1.69 K/uL (1.4-6.5); Neutrophils % (auto) 74.9 %; Platelet Count 111 K/uL (130-400); RDW Coefficient of Variation 16.6 % (11.5-14.5); RDW Standard Deviation 49.7 fL (36.4-46.3); Red Blood Count 4.82 M/uL (4.2-5.4); White Blood Count 2.26 K/uL (4.8-10.8)
[2019-03-03] MEDS ORDERED: PANTOprazole 40 MG in DEXTROSE 5% 100 ML IV SCH (21:45)
[2019-03-03 21:51] LABS: Partial Thromboplastin Ratio 0.9; Partial Thromboplastin Time 24.4 Seconds (21.0-31.0); Prothrombin Time 10.5 Seconds (9.0-12.0)
[2019-03-03 21:58] LABS: Alanine Aminotransferase 30 U/L (12-78); Aspartate Aminotransferase 35 U/L (15-37); BUN Creatinine Ratio 38.4 (10-20); Blood Urea Nitrogen 38 mg/dl (7-18); Calcium 9.5 mg/dl (8.5-10.1); Carbon Dioxide 28 mmol/L (21-32); Chloride 106 mmol/L (98-107); Est GFR (African American) 59.9; Est GFR (Non-African American) 51.7; Glucose 130 mg/dl (70-99); Sodium 140 mmol/L (136-145)
[2019-03-03 22:01] LABS: Albumin Globulin Ratio 0.7 (0.9-2); Alkaline Phosphatase 127 U/L (45-117); Bilirubin,Total 0.6 mg/dl (0.2-1); Globulin 4.6 gm/dl (2.5-4.0); Total Protein 7.6 gm/dl (6.4-8.2)
--- NOTE | 2019-03-03 22:07 | XRay Report ---
XR chest 1V portable CLINICAL HISTORY: GIB COMPARISON STUDY: Chest radiograph October 16, 2018. FINDINGS: Severe degenerative changes with remodeling of the bilateral shoulders is chronic. There is no pneumothorax or pleural effusion. Cardiac size is normal. Mediastinal contours are normal. There is no evidence for pulmonary edema. Suspected mitral annular calcification is noted. IMPRESSION: No acute cardiopulmonary findings. Electronically signed by: Joseph Kaplan M.D. 03/03/2019 10:06 PM
[2019-03-03] MEDS ORDERED: IOVERSOL 100ml IV PRN (22:31)
--- NOTE | 2019-03-03 22:59 | CT Scan Report ---
CT OF THE ABDOMEN AND PELVIS WITH CONTRAST CLINICAL HISTORY: GI bleed. COMPARISON STUDY: None. TECHNIQUE: Following IV administration of 93 mL of Optiray-320, axial images of the abdomen and pelvi s were obtained from the lung bases to the proximal femurs. Images were reviewed in the axial, sagitt al, and coronal planes. IV contrast was administered without complication. Automated exposure contro l was utilized for the study. A dose lowering technique was utilized adhering to the principles of A ZACK. CT DOSE: 280.15 mGy.cm FINDINGS: Lung bases are clear. There is a small hiatal hernia. Extensive mitral annular calcificatio n is noted. Mild splenomegaly is noted. There is pancreatic glandular atrophy. No biliary or pancreat ic ductal dilatation is present. There is no hydronephrosis. This study is mildly compromised by maren on artifact. There is extensive vascular calcification. The caliber of the abdominal aorta is normal. There is extensive plaque within the abdominal aorta. No pneumatosis, free air or portal venous gas is present. The appendix is normal. Pancolonic diverticulosis is present. There is no convincing evid ence for acute diverticulitis. Fat-containing left inguinal hernia is noted. A small bowel loop exten ds into a right inguinal hernia. There is no evidence for a bowel obstruction. No suspicious osseous lesions are noted. IMPRESSION: 1. Pancolonic diverticulosis without convincing evidence for acute diverticulitis. 2. Mild splenomegaly. 3. Bowel containing right inguinal hernia. No bowel obstruction. 4. Small hiatal hernia. Electronically signed by: Joseph Kaplan M.D. 03/03/2019 10:58 PM
--- NOTE | 2019-03-03 23:23 | Emergency Department Note ---
Entered by Sendy Aviles acting as a scribe for Lana Sykes MD History of Present Illness General Chief complaint: Rectal Bleed Stated complaint: RECTAL BLEED Source: patient History of Present Illness Provider complaint: Rectal bleed Onset (ago): hour(s) Location: genitals (rectal bleed) Pain Consistency: + constant Maximum Pain Intensity: 0 Quality: + constant Associated symptoms: + other (Positive: rectal bleed, clots in blood. Negative: abdominal pain, abdominal cramps ); no fever/chills (fever) and no nausea/vomiting (vomiting ) The patient is an 83 year old female who presents to the ED with complaints of constant rectal bleeding that started this afternoon. The patient reports she started bleeding earlier today but does not have any abdominal pain or cramps. She reports she was constipated yesterday and her bowel movement was hard. The patient reports there were some clots in her blood. She states she is always bruising which is chronic. The patient denies fever or vomiting. The patient had blood work done in January. Her platelet counts were 125 and hemoglobin was 14.3. Home Medications Home Medications Medication Instructions Recorded Confirmed Type atenolol 50 mg PO DAILY 03/03/19 03/03/19 History cholecalciferol (vitamin D3) 2,000 unit PO DAILY 03/03/19 03/03/19 History [Vitamin D3] cyanocobalamin (vitamin B-12) 1,000 mcg PO DAILY 03/03/19 03/03/19 History [Vitamin B-12] levothyroxine 88 mcg PO QAM 03/03/19 03/03/19 History loratadine 10 mg PO DAILY PRN 03/03/19 03/03/19 History Allergies Allergy/AdvReac Type Severity Reaction Status Date / Time beclomethasone Allergy Unknown Unknown Verified 03/03/19 22:10 diazepam Allergy Unknown Unknown Verified 03/03/19 22:10 codeine AdvReac Mild MILD Verified 03/03/19 22:10 CONFUSION Past Med/Surg History Medical History Osteoarthritis Hyperlipidemia Hypophosphatemia Chronic kidney disease Hypothyroidism (Chronic) Hypertension (Chronic) Neutropenia (Chronic) HTN (hypertension) Thrombocytopenia Leukopenia Hypothyroidism DVT prophylaxis Altered mental status (Acute) Dehydration (Acute) Rhabdomyolysis (Acute) Sinusitis (Acute) Head injury without fracture of skull Left hip pain (Acute) Syncope and collapse Family History Other No significant family history Social History Communication Ability: Effective Beliefs That Will Affect Care: None marital status: / Current Living Situation: Alone current occupational status: retired Feels Safe at Home: Yes Smoking Status: Never smoker Hx Alcohol Use: No Hx Substance Use: No Review of Systems See HPI for pertinent positives & negatives. and A total of 10 systems reviewed and were otherwise negative Physical Exam Vital Signs Vital Signs - 24 hr 03/03/19 20:37 03/03/19 21:37 03/03/19 21:43 Temperature 36.9 C Temperature Source Oral Sepsis Recent Fever Within 48 Hours No Sepsis Action Taken by Nursing No Action Required Pulse Rate 47 L 69 69 Pulse Rate from SpO2 Sensor 69 71 Respiratory Rate 18 16 16 Respiratory Effort / Characteristics Non-Labored Respiratory Depth Normal Blood Pressure 181/93 H 179/84 H Blood Pressure Mean 122 115 Pulse Oximetry 96 96 95 Oxygen Delivery Method Room Air 03/03/19 22:00 03/03/19 22:01 Temperature Temperature Source Sepsis Recent Fever Within 48 Hours Sepsis Action Taken by Nursing Pulse Rate 66 66 Pulse Rate from SpO2 Sensor 67 67 Respiratory Rate 15 27 H Respiratory Effort / Characteristics Respiratory Depth Blood Pressure 168/78 H Blood Pressure Mean 108 Pulse Oximetry 97 97 Oxygen Delivery Method Vital signs reviewed. General: Chronically ill-appearing, elderly, in no significant distress. HEENT: No scleral icterus, PERRLA, neck supple. Atraumatic. Cardiovascular: Regular rate and rhythm, no extra sounds. Pulmonary: Clear to auscultation bilaterally, normal work of breathing. Abdomen: Soft, nontender, nondistended, positive bowel sounds. Rectal: Grossly positive dark red blood on rectal exam. No stool. Several external hemorrhoids with no active bleeding identified Musculoskeletal: Atraumatic, no peripheral edema. Neurologic: Patient awake alert and oriented x 3 Skin: Warm, dry, no rash Course 2103: The patient was evaluated in room A3. A complete history and physical exam was performed. 2305: I discussed the patient's case with Dr. Church, [facility] Hospitalist. He will evaluate the patient for further management. 3: I updated the patient on her test results. I discussed the treatment plan with the patient. The patient verbally agreed. Administered Medications Pantoprazole Sodium 40 mg/ (Dextrose) 100 mls @ 20 mls/hr IV Q5H SARA Stop: 03/04/19 02:44 Last Admin: 03/03/19 22:11 Dose: 20 mls/hr Documented by: [id number] Ioversol (Optiray 320 100ml) 93 ml IV ONCE PRN PRN Reason: Interaction Checking Stop: 03/07/19 22:30 Last Admin: 03/03/19 22:32 Dose: 93 ml Documented by: [id number] Discontinued Medications Pantoprazole Sodium 80 mg/ (Dextrose) 120 mls @ 480 mls/hr IV 2130 SARA Stop: 03/03/19 21:44 Last Infusion: 03/03/19 22:17 Dose: 0 mls/hr Documented by: [id number] Admin: 03/03/19 21:52 Dose: 480 mls/hr Documented by: [id number] Medical Decision Making Differential Diagnosis Differential diagnosis: Etiologies such as esophagitis, variceal bleed, [place], [place] tear, gastritis, peptic ulcer disease, AVM, inflammatory bowel disease, ischemia, diverticulosis, colitis, malignancy, coagulopathy, thrombocytopenia, fissure, hemorrhoid, epistaxis , as well as others were entertained. Medical Records Attestation: I reviewed the patient's medical records. Home Medications Current Medication List: was personally reviewed by me Laboratory Data Attestation: I reviewed the patient's lab results. Result diagrams: 03/03/19 21:27 03/03/19 21:27 Lab Results 03/03/19 03/03/19 03/03/19 Range/Units 21:21 21:27 21:27 WBC 2.26 L (4.8-10.8) K/uL RBC 4.82 (4.2-5.4) M/uL Hgb 13.4 (12.0-16.0) g/dL Hct 39.1 (37-47) % MCV 81.1 (80-100) fL MCH 27.8 (25-34) pg MCHC 34.3 (32-36) g/dL RDW Std Deviation 49.7 H (36.4-46.3) fL RDW Coeff of Rubi 16.6 H (11.5-14.5) % Plt Count 111 L (130-400) K/uL MPV 9.4 (7.4-10.4) fL Immature Gran % (Auto) 0.4 % Neut % (Auto) 74.9 % Lymph % (Auto) 4.4 % [place] % (Auto) 11.9 % Eos % (Auto) 7.5 % Baso % (Auto) 0.9 % Immature Gran # (Auto) 0.01 (0.00-0.02) K/uL Neut # (Auto) 1.69 (1.4-6.5) K/uL Lymph # (Auto) 0.10 L (1.2-3.4) K/uL [place] # (Auto) 0.27 (0.11-0.59) K/uL Eos # (Auto) 0.17 (0-0.5) K/uL Baso # (Auto) 0.02 (0-0.2) K/uL PT 10.5 (9.0-12.0) Seconds INR 1.0 (0.9-1.1) APTT 24.4 (21.0-31.0) Seconds PTT Ratio 0.9 Sodium (136-145) mmol/L Potassium (3.5-5.1) mmol/L Chloride (98-107) mmol/L Carbon Dioxide (21-32) mmol/L Anion Gap (3-11) BUN (7-18) mg/dl Creatinine (0.6-1.2) mg/dl Est Cr Clr Drug Dosing Est GFR ( Amer) Est GFR (Non-Af Amer) BUN/Creatinine Ratio (10-20) Glucose (70-99) mg/dl Calcium (8.5-10.1) mg/dl Total Bilirubin (0.2-1) mg/dl AST (15-37) U/L ALT (12-78) U/L Alkaline Phosphatase (45-117) U/L Total Protein (6.4-8.2) gm/dl Albumin (3.4-5.0) gm/dl Globulin (2.5-4.0) gm/dl Albumin/Globulin Ratio (0.9-2) Blood Type O Positive Antibody Screen NEGATIVE 03/03/19 Range/Units 21:27 WBC (4.8-10.8) K/uL RBC (4.2-5.4) M/uL Hgb (12.0-16.0) g/dL Hct (37-47) % MCV (80-100) fL MCH (25-34) pg MCHC (32-36) g/dL RDW Std Deviation (36.4-46.3) fL RDW Coeff of Rubi (11.5-14.5) % Plt Count (130-400) K/uL MPV (7.4-10.4) fL Immature Gran % (Auto) % Neut % (Auto) % Lymph % (Auto) % [place] % (Auto) % Eos % (Auto) % Baso % (Auto) % Immature Gran # (Auto) (0.00-0.02) K/uL Neut # (Auto) (1.4-6.5) K/uL Lymph # (Auto) (1.2-3.4) K/uL [place] # (Auto) (0.11-0.59) K/uL Eos # (Auto) (0-0.5) K/uL Baso # (Auto) (0-0.2) K/uL PT (9.0-12.0) Seconds INR (0.9-1.1) APTT (21.0-31.0) Seconds PTT Ratio Sodium 140 (136-145) mmol/L Potassium 4.0 (3.5-5.1) mmol/L Chloride 106 (98-107) mmol/L Carbon Dioxide 28 (21-32) mmol/L Anion Gap 6.0 (3-11) BUN 38 H (7-18) mg/dl Creatinine 1.00 (0.6-1.2) mg/dl Est Cr Clr Drug Dosing Not Reportable Est GFR ( Amer) 59.9 Est GFR (Non-Af Amer) 51.7 BUN/Creatinine Ratio 38.4 H (10-20) Glucose 130 H (70-99) mg/dl Calcium 9.5 (8.5-10.1) mg/dl Total Bilirubin 0.6 (0.2-1) mg/dl AST 35 (15-37) U/L ALT 30 (12-78) U/L Alkaline Phosphatase 127 H (45-117) U/L Total Protein 7.6 (6.4-8.2) gm/dl Albumin 3.0 L (3.4-5.0) gm/dl Globulin 4.6 H (2.5-4.0) gm/dl Albumin/Globulin Ratio 0.7 L (0.9-2) Blood Type Antibody Screen Imaging Data Radiologist's Impression: Radiology results as stated below per my review and the radiologist's interpretation: XR chest 1V portable CLINICAL HISTORY: GIB COMPARISON STUDY: Chest radiograph October 16, 2018. FINDINGS: Severe degenerative changes with remodeling of the bilateral shoulders is chronic. There is no pneumothorax or pleural effusion. Cardiac size is normal. Mediastinal contours are normal. There is no evidence for pulmonary edema. Suspected mitral annular calcification is noted. IMPRESSION: No acute cardiopulmonary findings. Electronically signed by: Joseph Kaplan M.D. 03/03/2019 10:[address] OF THE ABDOMEN AND PELVIS WITH CONTRAST CLINICAL HISTORY: GI bleed. COMPARISON STUDY: None. TECHNIQUE: Following IV administration of 93 mL of Optiray-320, axial images of the abdomen and pelvis were obtained from the lung bases to the proximal femurs. Images were reviewed in the axial, sagittal, and coronal planes. IV contrast was administered without complication. Automated exposure control was utilized for the study. A dose lowering technique was utilized adhering to the principles of ALARA. CT DOSE: 280.15 mGy.cm FINDINGS: Lung bases are clear. There is a small hiatal hernia. Extensive mitral annular calcification is noted. Mild splenomegaly is noted. There is pancreatic glandular atrophy. No biliary or pancreatic ductal dilatation is present. There is no hydronephrosis. This study is mildly compromised by motion artifact. There is extensive vascular calcification. The caliber of the abdominal aorta is normal. There is extensive plaque within the abdominal aorta. No pneumatosis, f ree air or portal venous gas is present. The appendix is normal. Pancolonic diverticulosis is present. There is no convincing evidence for acute diverticulitis. Fat-containing left inguinal hernia is noted. A small bowel loop extends into a right inguinal hernia. There is no evidence for a bowel obs truction. No suspicious osseous lesions are noted. IMPRESSION: 1. Pancolonic diverticulosis without convincing evidence for acute diverticulitis. 2. Mild splenomegaly. 3. Bowel containing right inguinal hernia. No bowel obstruction. 4. Small hiatal hernia. Electronically signed by: Joseph Kaplan M.D. 03/03/2019 10:58 PM ECG Data Attestation: I personally reviewed and interpreted this ECG as follows: Indication: other (Rectal bleed) Rate (beats per minute): 65 Rhythm: normal sinus Findings: + other (Previous inferior and likely anterior infract) and + left axis deviation; no acute ischemic change and no ectopy Blood Pressure Blood Pressure Findings: Elevated blood pressure Blood Pressure Disposition: further management by hospitalist MDM Narrative This patient was evaluated and appeared to be in no significant distress. IV access was obtained and laboratory work was drawn. The patient was placed on the groundwater monitoring technician and found to be in a normal sinus rhythm. Laboratory work reveals stable H&H with a hemoglobin of 13.4. Platelet count is 111. Patient's laboratory work was obtained from the outside facility. Hemoglobin is slightly lower than previous which was 14.3 in January. Patient states the bleeding seems to have subsided somewhat. She is feeling well. CT scan of the abdomen pelvis was performed and reveals extensive colonic diverticulosis without evidence of acute diverticulitis. Patient's case was discussed with the hospitalist, Dr. Church who will evaluate the patient for further management. Patient and family are aware of the plan and agree. Impression & Plan Lower GI bleed Discharge Plan Visit Data Chief Complaint: Rectal Bleed Stated Complaint: RECTAL BLEED ED Provider: Lana Sykes Discharge Problem: Lower GI bleed Patient Disposition: Being Evaluated by Hospitalist Forms Stand Alone Forms: My [facility] Prescriptions Prescriptions: No Action levothyroxine 88 mcg tablet 88 mcg PO QAM RF: 0 atenolol 50 mg tablet 50 mg PO DAILY RF: 0 cyanocobalamin (vitamin B-12) [Vitamin B-12] 1,000 mcg Tablet 1,000 mcg PO DAILY RF: 0 loratadine 10 mg Tablet 10 mg PO DAILY PRN (Reason: Allergy Symptoms) RF: 0 cholecalciferol (vitamin D3) [Vitamin D3] 2,000 unit Capsule 2,000 unit PO DAILY RF: 0 Referrals Referrals: Alice Evans MD [Primary Care Provider] - The scribe's documentation has been prepared under my direction and personally reviewed by me in its entirety. I confirm that the note above accurately reflects all work, treatment, procedures, and medical decision making performed by me.
[2019-03-04] MEDS ORDERED: LORATADINE 10 MG TAB PO PRN (01:21)
[2019-03-04] MEDS ORDERED: ACETAMINOPHEN 325 MG TAB PO PRN (01:21)
[2019-03-04] MEDS ORDERED: ONDANSETRON INJ 2 MG/ML 2 ML VIAL IV PRN (01:21)
[2019-03-04] MEDS ORDERED: NITROGLYCERIN SL 0.4 MG/TAB TAB SL PRN (01:21)
[2019-03-04] MEDS: PANTOprazole 40 MG in DEXTROSE 5% 100 ML IV SCH ×4 (01:36→18:17)
[2019-03-04] MEDS: SODIUM CHLORIDE 0.9% 1000ML 1,000 ML IV SCH ×2 (01:36→14:26)
--- NOTE | 2019-03-04 01:41 | History and Physical Report ---
DATE OF ADMISSION: 03/03/2019 CHIEF COMPLAINT: GI bleed. HISTORY OF PRESENT ILLNESS: This is an 83-year-old female with past medical history significant for chronic kidney disease stage III, hypertension, hyperlipidemia, impaired fasting glucose, vitamin B12 deficiency, vitamin D deficiency, hypothyroidism, known seasonal allergic rhinitis, generalized osteoarthrosis, history of thrombocytopenia and leukopenia. Follows with hem/onc, bone marrow biopsy done on October 2017 showed hypercellular bone marrow otherwise it was unremarkable study. Frequent CBCs. She has 5 daughters and any one of the daughters lives with her all the time. She walks with a walker, but has some ambulatory dysfunction as per daughter, does not walk much. Today, in the dinnertime she noticed blood coming from rectum in clots. There is no abdominal pain. The patient was brought to the hospital. She still has some bleeding in the commode in the ER, but seems it is getting reduced. Denies any nausea, vomiting, no chest pain, no shortness of breath, hemodynamics are stable. No cough, no fever, no headaches, no blurred vision, no sore throat. Appetite is good. No issues with swallowing. Sleeps okay. No nausea, no vomiting. Normal bladder movements. ALLERGIES: DIAZEPAM, DOXYCYCLINE, MORPHINE AND RELATED. PAST MEDICAL HISTORY: As mentioned above. PAST SURGICAL HISTORY: Partial hysterectomy for fibroids. MEDICATIONS: The patient is currently on levothyroxine 88 mcg p.o. daily, amlodipine, vitamin D 1000 units p.o. daily, atenolol 50 mg p.o. daily, clobetasol propionate 0.05% apply topical to affected area b.i.d., vitamin C 500 mg p.o. daily, vitamin B12 1000 mcg daily, hydroxyzine 10 mg p.o. q.6 hours p.r.n. for itching, loratadine 10 mg p.o. daily p.r.n. FAMILY HISTORY: Significant for mother at age of 61 from [place]. Father had a stroke and [place]. SOCIAL HISTORY: . No tobacco use. No alcohol or drug use. She has 5 daughters and one of the daughters is always living with her. REVIEW OF SYMPTOMS: As per HPI. Rest of review of symptoms negative. PHYSICAL EXAMINATION: GENERAL: The patient is old and frail, not in acute distress. VITAL SIGNS: Temperature 36.9, pulse 66, respiratory rate 27, blood pressure 160/78, oxygen 97% room air. HEENT: No pallor, no icterus. Pupils equal, round, and reactive to light. Extraocular muscles intact. NECK: No JVD, no neck masses, no carotid bruits. CARDIOVASCULAR: S1, S2 heard, regular rate and rhythm, no murmur, no gallop. RESPIRATORY SYSTEM: Normal AP diameter. No accessory muscle use. No wheezing, no crackles. ABDOMEN: Soft, bowel sounds present. Nontender. No distention. CENTRAL NERVOUS SYSTEM: Cranial nerves II-XII grossly intact. Nonfocal. EXTREMITIES: No edema, no erythema. LABS: WBC 2.2, hemoglobin 13.4, hematocrit 39.1, platelets 111. PT 10.5, INR 1, APTT 24.4. Sodium 140, potassium 4, chloride 106, bicarbonate 28, BUN 38, creatinine 1, serum glucose 138, calcium 9.5, total bilirubin 0.6, AST 35, ALT 30, alkaline phosphatase 127. Chest x-ray: No acute cardiopulmonary findings. CT of abdomen and pelvis pancolonic diverticulosis without evidence for acute diverticulitis, mild splenomegaly. Bowel containing right inguinal hernia, no bowel obstruction, small hiatal hernia. EKG: Shows normal sinus rhythm rate of 65. No significant change from previous EKG. ASSESSMENT AND PLAN: 1. This is an 83-year-old female who presents with painless rectal bleed CAT scan showing diverticulosis. Most likely diverticular bleed. hemoglobin is stable at 13.4. We will follow serial H and H q. 6 hours and will transfuse as needed. Blood consent obtained. In the ER, Protonix drip was started, which we will continue and consult GI for further recommendation and closely monitor in the tele floor. 2. History of leukopenia and thrombocytopenia. Follows with hem/onc. Bone marrow biopsy was unrevealing. We will follow the labs. 3. Chronic kidney disease stage III, creatinine 1, stable. We will follow the labs. 4. History of hypertension. Continue atenolol. We will place her on hydralazine p.o. p.r.n. 5. Hypothyroidism. Continue Synthroid. 6. Impaired fasting glucose. Currently n.p.o. We will follow HbA1c levels and follow the blood sugars. 7. Vitamin D deficient and B12 deficient. Continue supplements. 8. Deep venous thrombosis prophylaxis, sequential compression devices for now. 9. Disposition: Closely monitor in the tele floor. Level 1 full code only if there is a chance of recovery. MTDD
[2019-03-04] MEDS: HydrALAZINE 10 MG TAB PO PRN ×2 (04:29→22:58)
[2019-03-04] MEDS: LEVOTHYROXINE SODIUM 88 MCG TABLET PO SCH (06:30)
[2019-03-04 06:42] LABS: Basophils # (auto) 0.02 K/uL (0-0.2); Basophils % (auto) 0.9 %; Eosinophils # (auto) 0.18 K/uL (0-0.5); Eosinophils % (auto) 7.8 %; Hematocrit (blood only) 34.4 % (37-47); Hematocrit (blood only) 34.7 % (37-47); Hemoglobin 11.7 g/dL (12.0-16.0); Immature Granulocytes # (auto) 0.01 K/uL (0.00-0.02); Immature Granulocytes % (auto) 0.4 %; Lymphocytes # (auto) 0.18 K/uL (1.2-3.4); Lymphocytes % (auto) 7.8 %; Mean Corpuscular Volume 80.9 fL (80-100); Mean Platelet Volume 9.7 fL (7.4-10.4); Monocytes # (auto) 0.41 K/uL (0.11-0.59); Monocytes % (auto) 17.8 %; Neutrophils % (auto) 65.3 %; Platelet Count 100 K/uL (130-400); RDW Coefficient of Variation 16.7 % (11.5-14.5); Red Blood Count 4.25 M/uL (4.2-5.4)
[2019-03-04 07:07] LABS: BUN Creatinine Ratio 33.9 (10-20); Calcium 8.5 mg/dl (8.5-10.1); Creatinine Clr Calc Pharmacy 32.4 ml/min; Est GFR (African American) 62.2; Est GFR (Non-African American) 53.6; Magnesium 1.8 mg/dl (1.8-2.4); Potassium 3.8 mmol/L (3.5-5.1)
[2019-03-04 07:30] LABS: Estimated Average Glucose 126 mg/dl
[2019-03-04] MEDS: CYANOCOBALAMIN 500 MCG TABLET (VITAMIN B-12) PO SCH (09:12)
[2019-03-04] MEDS: CHOLECALCIFEROL 1,000 UNITS TAB PO SCH (09:12)
[2019-03-04] MEDS: ATENOLOL 50 MG TABLET PO SCH (09:13)
--- NOTE | 2019-03-04 10:53 | Gastrointestinal Consultation ---
Date of Consultation March 04, 2019 Assessment & Plan (1) Lower GI bleed: 83-year-old female with evidence of hematochezia without acute anemia or hemodynamic compromise. Certainly in a patient with a presentation of painless rectal bleeding without hemodynamic change or significant anemia, this likely represents a lower GI bleed and that her case most likely a diverticular in nature. Certainly infectious or more unlikely inflammatory colitis is could be causing this. Fortunately right now she has a very robust blood pressures. She was actually just given her atenolol, she wants to take shower and she is doing remarkably well. I did discuss with her colonoscopy, she stated unless it was life or limb she does not want to undergo repeat colonoscopy procedure. Fortunately at this time it does not appear that she has ongoing bleeding. Recommendations Continue supportive care Ensure that adequate IV access Okay for PPI for 24 hours Call with any hemodynamic change or clinical status change Thank you for the consultation. History of Present Illness Attending Physician: Patsy Haile MD History of Present Illness This is this is an 83-year-old female with history of chronic kidney disease stage III, hypertension, hyperlipidemia, vitamin B12 deficiency, hypothyroidism, known history of thrombocytopenia as well as leukopenia with a hypoplastic bone marrow and ambulatory dysfunction who presents to the emergency room with a 1 day history of painless rectal bleeding. Yesterday upon presenting to the emergency room she stated that she had 4-5 bowel movements at home that were all bright red. She denied any evidence of pain associated with that, no evidence of lightheadedness or weakness. She has not had this happen before. Upon presentation to the emergency room she was noted normal to hypertensive, blood count of 13 which is higher than her baseline of 11. She had one bowel movement in the emergency room and one bowel movement at 4 AM this morning with decreasing amount of apparent bleeding. Her last colonoscopy from our records was in 2006 which showed hooper colonic diverticulosis. She states that she feels "wonderful" and has no complaints. She is ambulating in her room, I saw her twice today on rounds her a period of 2 to 3 hours she is now sitting at the bedside with her tennis shoes on. No further complaints. CT scan of the abdomen on presentation noted diverticular disease. Allergies Allergy/AdvReac Type Severity Reaction Status Date / Time beclomethasone Allergy Unknown Unknown Verified 03/03/19 22:10 diazepam Allergy Unknown Unknown Verified 03/03/19 22:10 codeine AdvReac Mild MILD Verified 03/03/19 22:10 CONFUSION Home Medications Home Medications Medication Instructions Recorded Confirmed Type atenolol 50 mg PO DAILY 03/03/19 03/03/19 History cholecalciferol (vitamin D3) 2,000 unit PO DAILY 03/03/19 03/03/19 History [Vitamin D3] cyanocobalamin (vitamin B-12) 1,000 mcg PO DAILY 03/03/19 03/03/19 History [Vitamin B-12] levothyroxine 88 mcg PO QAM 03/03/19 03/03/19 History loratadine 10 mg PO DAILY PRN 03/03/19 03/03/19 History Patient History Medical History Osteoarthritis Hyperlipidemia Hypophosphatemia Chronic kidney disease Hypothyroidism (Chronic) Hypertension (Chronic) Neutropenia (Chronic) HTN (hypertension) Thrombocytopenia Leukopenia Hypothyroidism DVT prophylaxis Altered mental status (Acute) Dehydration (Acute) Rhabdomyolysis (Acute) Sinusitis (Acute) Head injury without fracture of skull Left hip pain (Acute) Syncope and collapse Family History Other No significant family history Social History Preferred Language: Monegasque Communication Ability: Effective Managed Care Coordinator Required: No Beliefs That Will Affect Care: None marital status: / Current Living Situation: Other Current Living Situation Comment: 24 hour caregivers at home current occupational status: retired Other Information That Helps Us Care for You: No Feels Safe at Home: Yes Safety Concerns: Feels Safe At This Time Smoking Status: Never smoker Do You Dip or Chew Tobacco: No Hx Alcohol Use: No Hx Substance Use: No Review of Systems Review of Systems: All systems reviewed & are unremarkable except as noted in HPI & below Physical Exam Physical Exam: Awake alert oriented x3, ambulating in room, no distress Heart is regular Lungs are clear Abdomen soft nontender nondistended No peripheral edema No neurologic deficit
[2019-03-04 11:19] LABS: Hematocrit (blood only) 34.9 % (37-47); Hemoglobin 12.2 g/dL (12.0-16.0)
--- NOTE | 2019-03-04 14:17 | Hospitalist Progress Note ---
Date of Service March 04, 2019 Assessment & Plan (1) Lower GI bleed: Presented with painless bright red blood per rectum, secondary to diverticular bleed, no further episode of blood per rectum, no abdominal pain, patient remains hemodynamically stable Appreciate input from GI Patient declines colonoscopic procedure, not interested doing an outpatient procedure as well Diet advanced, tolerating well, stable to be transferred to medical floor, observed overnight for any evidence of GI bleed, Present on Admission?: Yes (2) Diverticulosis of colon with hemorrhage: presented with painless GI bleed, one episode only Vitals H&H stable Possible diverticular bleed, resolved spontaneously Appreciate GI input, no further investigation of procedure indicated Patient declined colonoscopy (3) Chronic kidney disease: Creatinine at baseline (4) HTN (hypertension): Blood pressure remains stable (5) Thrombocytopenia: Chronic, no further episode of GI bleed, avoid antiplatelets anticoagulants (6) Leukopenia: Chronic (7) Neutropenia: CODE STATUS: Full code DVT prophylaxis: SCD and teds, patient is encouraged to ambulate, pharmacological anticoagulation avoided secondary to pancytopenia, presentation with bright red blood per rectum Disposition: Expect to be discharged home when medically stable, Patient is to transition to be transferred to personal half-way at [facility], patient's daughter present at bedside, updated Subjective no further episode of blood in stool NO abdominal pain or nausea vitals remained stable Patient offers no complaints, patient refused to have a colonoscopy this hospitalization, appreciate input from GI, okay to advance diet, Patient can be followed up with GI as an outpatient Physical Exam Constitutional: WD/WN, vitals as above no acute distress Eyes: + anicteric sclerae ENMT: external ear and nose normal, oropharynx normal Neck: trachea midline, no thyromegaly Respiratory: normal respiratory effort, lungs clear to auscultation Cardiovascular: RRR, no murmur, no edema Rate/Rhythm: regular rate and regular rhythm Gastrointestinal (Abdomen): normal bowel sounds, soft, nontender, no hepatosplenomegaly Musculoskeletal: no cyanosis or clubbing, extremities motor strength 5/5 Skin: no rashes, warm and dry Neurologic: PERRL, EOMI, accommodation nl, no face palsy, no dysarthria Psychiatric: A+Ox3, euthymic affect Results & Data Vital Signs (Past 12 Hours) Vital Signs Temp Pulse Resp BP Pulse Ox 03/04/19 11:46 36.5 C 57 L 18 141/72 H 97 03/04/19 08:12 36.8 C 66 18 186/100 H 97 03/04/19 06:31 168/75 H 03/04/19 04:15 36.6 C 63 18 196/82 H 97
[2019-03-04] MEDS: PANTOprazole 40 MG TAB PO SCH (20:57)
[2019-03-05 05:51] LABS: Basophils # (auto) 0.01 K/uL (0-0.2); Basophils % (auto) 0.6 %; Eosinophils # (auto) 0.23 K/uL (0-0.5); Eosinophils % (auto) 12.7 %; Hematocrit (blood only) 31.7 % (37-47); Hemoglobin 10.9 g/dL (12.0-16.0); Lymphocytes # (auto) 0.26 K/uL (1.2-3.4); Lymphocytes % (auto) 14.4 %; Mean Corpuscular Hgb Conc 34.4 g/dL (32-36); Mean Corpuscular Volume 81.5 fL (80-100); Mean Platelet Volume 9.3 fL (7.4-10.4); Monocytes # (auto) 0.19 K/uL (0.11-0.59); Monocytes % (auto) 10.5 %; Neutrophils # (auto) 1.12 K/uL (1.4-6.5); Neutrophils % (auto) 61.8 %; Platelet Count 103 K/uL (130-400); RDW Coefficient of Variation 16.8 % (11.5-14.5); RDW Standard Deviation 50.5 fL (36.4-46.3); Red Blood Count 3.89 M/uL (4.2-5.4); White Blood Count 1.81 K/uL (4.8-10.8)
[2019-03-05] MEDS: LEVOTHYROXINE SODIUM 88 MCG TABLET PO SCH (06:20)
[2019-03-05 06:23] LABS: BUN Creatinine Ratio 24.1 (10-20); Calcium 8.3 mg/dl (8.5-10.1); Creatinine Clr Calc Pharmacy 30.2 ml/min; Est GFR (African American) 57.1; Est GFR (Non-African American) 49.3; Magnesium 1.9 mg/dl (1.8-2.4)
[2019-03-05] MEDS: CYANOCOBALAMIN 500 MCG TABLET (VITAMIN B-12) PO SCH (07:41)
[2019-03-05] MEDS: ATENOLOL 50 MG TABLET PO SCH (07:41)
[2019-03-05] MEDS: CHOLECALCIFEROL 1,000 UNITS TAB PO SCH (07:42)
[2019-03-05] MEDS: PANTOprazole 40 MG TAB PO SCH ×2 (07:42→20:21)
--- NOTE | 2019-03-05 07:57 | Gastroenterology Progress Note ---
Date of Service March 05, 2019 Assessment & Plan (1) Lower GI bleed: 83-year-old female with evidence of hematochezia without acute anemia or hemodynamic compromise. Certainly in a patient with a presentation of painless rectal bleeding without hemodynamic change or significant anemia, this likely represents a lower GI bleed and that her case most likely a diverticular in nature. Certainly infectious or more unlikely inflammatory colitis is could be causing this. Fortunately right now she continues to have robust blood pressures. I did discuss with her colonoscopy, she stated unless it was life or limb she does not want to undergo repeat colonoscopy procedure. Fortunately at this time it does not appear that she has ongoing bleeding. Recommendations Continue supportive care Ensure that adequate IV access Okay for PPI for 24 hours Call with any hemodynamic change or clinical status change Thank you for the consultation. Subjective One bowel movement in the last 24 hours, patient is sitting in the bedside chair with her normal close on and states she feels "wonderful". No acute events, VSS. Hb stable Review of Systems Review of Systems: All systems reviewed & are unremarkable except as noted in HPI & below Physical Exam Physical Exam: Awake alert oriented x3 neurologically intact appears well Constitutional: WD/WN, vitals as above Cardiovascular: RRR, no murmur, no edema Gastrointestinal (Abdomen): normal bowel sounds, soft, nontender, no hepatosplenomegaly Results & Data Vital Signs (Past 12 Hours) Vital Signs Temp Pulse Resp BP Pulse Ox 03/04/19 23:27 36.4 C L 66 17 180/81 H 97
--- NOTE | 2019-03-05 18:13 | Hospitalist Progress Note ---
Date of Service March 05, 2019 Assessment & Plan (1) Lower GI bleed: Presented with painless bright red blood per rectum, secondary to diverticular bleed, no abdominal pain, patient remains hemodynamically stable Had another small episode of bright red blood per rectum Appreciate input from GI Patient declines colonoscopic procedure, not interested doing an outpatient procedure as well Diet advanced, tolerating well, Patient will be continue to observe on the floor repeat H&H tomorrow (2) Diverticulosis of colon with hemorrhage: presented with painless GI bleed/possible diverticular bleed Continue to monitor, avoid antiplatelets anticoagulants, repeat H&H tomorrow Appreciate GI input, no further investigation of procedure indicated Patient declined colonoscopy (3) Chronic kidney disease: Creatinine at baseline (4) HTN (hypertension): Blood pressure remains stable (5) Thrombocytopenia: Chronic, and avoid antiplatelets (6) Leukopenia: Chronic (7) Neutropenia: CODE STATUS: Full code DVT prophylaxis: SCD and teds, patient is encouraged to ambulate, pharmacological anticoagulation avoided secondary to pancytopenia, presentation with bright red blood per rectum Disposition: Expect to be discharged home when medically stable, Patient is to transition to be transferred to personal longterm at [facility], patient's daughter present at bedside, updated Subjective Had small bowel movement with blood streaked stool yesterday, no complaint of abdominal pain, no nausea vomiting, vital stable, tolerating diet well Patient will be observed overnight, Update given to patient's daughter present at bedside Physical Exam Constitutional: WD/WN, vitals as above no acute distress Eyes: + anicteric sclerae ENMT: external ear and nose normal, oropharynx normal Neck: trachea midline, no thyromegaly Respiratory: normal respiratory effort, lungs clear to auscultation Cardiovascular: RRR, no murmur, no edema Rate/Rhythm: regular rate and regular rhythm Gastrointestinal (Abdomen): normal bowel sounds, soft, nontender, no he patosplenomegaly Musculoskeletal: no cyanosis or clubbing, extremities motor strength 5/5 Skin: no rashes, warm and dry Neurologic: PERRL, EOMI, accommodation nl, no face palsy, no dysarthria Psychiatric: A+Ox3, euthymic affect Results & Data Vital Signs (Past 12 Hours) Vital Signs Temp Pulse Resp BP Pulse Ox 03/05/19 16:55 163/78 H 03/05/19 16:00 36.7 C 73 21 197/79 H 96
[2019-03-06] MEDS: LEVOTHYROXINE SODIUM 88 MCG TABLET PO SCH (05:46)
[2019-03-06 07:19] LABS: Hematocrit (blood only) 34.7 % (37-47); Hemoglobin 11.6 g/dL (12.0-16.0); Mean Corpuscular Hgb Conc 33.4 g/dL (32-36); Mean Corpuscular Volume 82.4 fL (80-100); Mean Platelet Volume 9.3 fL (7.4-10.4); Platelet Count 104 K/uL (130-400); RDW Coefficient of Variation 16.7 % (11.5-14.5); RDW Standard Deviation 50.4 fL (36.4-46.3); Red Blood Count 4.21 M/uL (4.2-5.4); White Blood Count 1.83 K/uL (4.8-10.8)
[2019-03-06] MEDS: ATENOLOL 50 MG TABLET PO SCH (08:34)
[2019-03-06] MEDS: CHOLECALCIFEROL 1,000 UNITS TAB PO SCH (08:34)
[2019-03-06] MEDS: PANTOprazole 40 MG TAB PO SCH (08:35)
[2019-03-06] MEDS: CYANOCOBALAMIN 500 MCG TABLET (VITAMIN B-12) PO SCH (08:35)
--- NOTE | 2019-03-06 11:29 | Gastroenterology Progress Note ---
Date of Service March 06, 2019 Assessment & Plan (1) Lower GI bleed: 83-year-old female with evidence of hematochezia without acute anemia or hemodynamic compromise. Clinically improving w/ resolution of GIB. No GI contraindication to diet No GI contraindication to DC home She has remained hemodynamically stable w/ stable VS and HGB No further episode of rectal bleed Thank you for allowing us to participate in the care of this patient. Please call with any acute changes, questions or concerns. Please see addendum below with additional recommendation from my supervising physician. Present on Admission?: Yes Supervising Physician Co-Signing Physician Notes I performed a history and physical examination of the patient, including specifically on physical exam - soft, nontender abdomen. I have discussed the patient's management with Samia. Please refer to the nurse practitioner's note for the documented findings and plan of care. 83 female presented with painless rectal bleeding, seen yesterday and deemed clinically stable hence colonoscopy was deferred. She is dressed and ready to go home today.H/H stable. Recall GI if needed or bleeding recurs. Subjective Pt was seen and evaluated, chart reviewed OOB in chair Feels well No abd pain No further rectal bleeding Brown stool Wants to go home Review of Systems Constitutional: no fever, no chills and no fatigue Respiratory: no cough, no chest congestion and no dyspnea Cardiovascular: no chest pain, no chest pain at rest and no dyspnea Gastrointestinal: no abdominal pain, no early satiety, no vomiting, no change in stools, no blood in stools and no melena Physical Exam Constitutional: WD/WN, vitals as above Respiratory: normal respiratory effort, lungs clear to auscultation Cardiovascular: RRR, no murmur, no edema Gastrointestinal (Abdomen): normal bowel sounds, soft, nontender, no hepatosplenomegaly Skin: no rashes, warm and dry Psychiatric: Orientation: alert and oriented x 3 Results & Data Vital Signs (Past 12 Hours) Vital Signs Temp Pulse Resp BP Pulse Ox 03/06/19 07:33 36.8 C 65 18 168/87 H 98 Laboratory Results 03/06/19 Range/Units 07:07 WBC 1.83 L (4.8-10.8) K/uL RBC 4.21 (4.2-5.4) M/uL Hgb 11.6 L (12.0-16.0) g/dL Hct 34.7 L (37-47) % MCV 82.4 (80-100) fL MCH 27.6 (25-34) pg MCHC 33.4 (32-36) g/dL RDW Std Deviation 50.4 H (36.4-46.3) fL RDW Coeff of Rubi 16.7 H (11.5-14.5) % Plt Count 104 L (130-400) K/uL MPV 9.3 (7.4-10.4) fL
--- NOTE | 2019-03-08 10:13 | Discharge Summary ---
Date of Service March 08, 2019 Admission HPI Per Admitting Provider DICTATED BY: Felton Church MD DATE OF ADMISSION: 03/03/2019 CHIEF COMPLAINT: GI bleed. HISTORY OF PRESENT ILLNESS: This is an 83-year-old female with past medical history significant for chronic kidney disease stage III, hypertension, hyperlipidemia, impaired fasting glucose, vitamin B12 deficiency, vitamin D deficiency, hypothyroidism, known seasonal allergic rhinitis, generalized osteoarthrosis, history of thrombocytopenia and leukopenia. Follows with hem/onc, bone marrow biopsy done on October 2017 showed hypercellular bone marrow otherwise it was unremarkable study. Frequent CBCs. She has 5 daughters and any one of the daughters lives with her all the time. She walks with a walker, but has some ambulatory dysfunction as per daughter, does not walk much. Today, in the dinnertime she noticed blood coming from rectum in clots. There is no abdominal pain. The patient was brought to the hospital. She still has some bleeding in the commode in the ER, but seems it is getting reduced. Denies any nausea, vomiting, no chest pain, no shortness of breath, hemodynamics are stable. No cough, no fever, no headaches, no blurred vision, no sore throat. Appetite is good. No issues with swallowing. Sleeps okay. No nausea, no vomiting. Normal bladder movements. Principal Diagnosis DIVERTICULAR BLEED /RESOLVED Discharge Exam Constitutional WD/WN, vitals as above no acute distress Eyes + anicteric sclerae ENMT external ear and nose normal, oropharynx normal Neck trachea midline, no thyromegaly Respiratory normal respiratory effort, lungs clear to auscultation Cardiovascular RRR, no murmur, no edema Rate/Rhythm: regular rate and regular rhythm Gastrointestinal (Abdomen) normal bowel sounds, soft, nontender, no hepatosplenomegaly Musculoskeletal no cyanosis or clubbing, extremities motor strength 5/5 Skin no rashes, warm and dry Neurologic PERRL, EOMI, accommodation nl, no face palsy, no dysarthria Psychiatric A+Ox3, euthymic affect Discharge Data Allergies Allergy/AdvReac Type Severity Reaction Status Date / Time beclomethasone Allergy Unknown Unknown Verified 03/03/19 22:10 diazepam Allergy Unknown Unknown Verified 03/03/19 22:10 codeine AdvReac Mild MILD Verified 03/03/19 22:10 CONFUSION Consultations 03/03/19 23:16 ED Decision to Admit Stat 03/04/19 01:21 Consult Case Management - Discharge Planning Routine 03/04/19 08:00 Consult Gastroenterology Routine Ordered Studies 03/03/19 21:17 CT abd pelvis IV con only Stat Hospital Course (1) Lower GI bleed: Presented with painless bright red blood per rectum, secondary to diverticular bleed, no abdominal pain, patient remains hemodynamically stable Had another small episode of bright red blood per rectum Appreciate input from GI Patient declines colonoscopic procedure, not interested doing an outpatient procedure as well Diet advanced, tolerating well, no further episode of GI bleed normal brown stool stable to be discharged home (2) Diverticulosis of colon with hemorrhage: presented with painless GI bleed/possible diverticular bleed Continue to monitor, avoid antiplatelets anticoagulants, repeat H&H tomorrow Appreciate GI input, no further investigation of procedure indicated Patient declined colonoscopy GI bleed resolved spontaneously no further testing /imaging needed tolerating diet stable to be discharged home (3) Chronic kidney disease: Creatinine at baseline (4) HTN (hypertension): Blood pressure remains stable (5) Thrombocytopenia: Chronic, and avoid antiplatelets (6) Leukopenia: Chronic (7) Neutropenia: CODE STATUS: Full code DVT prophylaxis: SCD and teds, patient is encouraged to ambulate, pharmacological anticoagulation avoided secondary to pancytopenia, presentation with bright red blood per rectum Disposition:stable to be discharged home Total Time Total Time Spent Total Time Spent (In Minutes): approx 45 mins Discharge Plan Discharge Items Patient Disposition: Home - Home Health Services Reason For Visit: RECTAL BLEED Discharge Diagnosis: Bright red blood per rectum, acute diverticular bleed Discharge Goals: Decrease discomfort, Diagnostic testing and Improve disease control Activity: Resume your previous activity Non-emergency contact: Primary Care Provider Call non-emergency contact if: you have any medication questions Follow-up/Referrals: Alice Evans MD [Primary Care Provider] - 03/08/19 12:45 pm Diet: Regular Addtl Provider Instructions: Do not take aspirin, Motrin, Aleve, Advil, ibuprofen, naproxen Can cause bleeding in stomach/intestine Please take MiraLAX 1 heaped tablespoonful in 8 ounces of water or any beverage daily Add extra fiber, fruit vegetables in your diet Drink plenty of fluids to keep hydrated Prescriptions: Continued levothyroxine 88 mcg tablet 88 mcg PO QAM RF: 0 atenolol 50 mg tablet 50 mg PO DAILY RF: 0 cyanocobalamin (vitamin B-12) [Vitamin B-12] 1,000 mcg Tablet 1,000 mcg PO DAILY RF: 0 loratadine 10 mg Tablet 10 mg PO DAILY PRN (Reason: Allergy Symptoms) RF: 0 cholecalciferol (vitamin D3) [Vitamin D3] 2,000 unit Capsule 2,000 unit PO DAILY RF: 0 Stand-Alone Forms: [facility]/Other Patient Handouts: Diet High Fiber Discharge Orders: Discharge Order (Routine); Ordered 03/06/19 Ordered By: Patsy Haile Admission Data Admit Date/Time: 03/04/19 00:17 Attending Provider: Patsy Haile Admit Provider: Felton Church Primary Care Provider: Alice Evans Other Providers: eFlton Church ; Tesha Gilbert ; Eulogio Virk ; Eva Zee ; Nils Johnson ; Laura Yousif ; Mitali Gallego ; Maisha Silva ; Venu Sanchez ; Alli Pedroza ; Samia Partida ; Cathi Carmona ; Alexandra Sanz ; Shelby Alexander ; Daron Bauer Service: Medical Other Interventions: Discharge Summary Assessment (RN) Last Done: 03/06/19 15:26 DC Date/Time DO NOT enter until pt leaves facility: 03/06/19 15:41
== END 2019-03-06 15:41 | disposition home health service (06) | DRG 379 ==
LOC: ED 20:32 → 2S 03-04 00:17 → 4E 03-04 17:18

== ENCOUNTER 2019-03-10 13:14 | Inpatient (IN) ==
--- NOTE | 2019-03-10 14:28 | XRay Report ---
XR chest 1V portable CLINICAL HISTORY: weakness L status change COMPARISON STUDY: 03/03/2019 FINDINGS: The bones soft tissues and hemidiaphragms are normal. The cardiomediastinal silhouette is n ormal. The lungs are clear. The pulmonary vasculature is normal. Chronic deterioration of the shoulde rs bilaterally IMPRESSION: No acute process. The above report was generated using voice recognition software. It may contain grammatical, syntax or spelling errors. Electronically signed by: Michael Holloway M.D. 03/10/2019 2:27 PM
[2019-03-10 14:38] LABS: Basophils # (auto) 0.01 K/uL (0-0.2); Basophils % (auto) 0.3 %; Eosinophils # (auto) 0.04 K/uL (0-0.5); Eosinophils % (auto) 1.3 %; Hematocrit (blood only) 35.4 % (37-47); Hemoglobin 11.9 g/dL (12.0-16.0); Lymphocytes # (auto) 0.22 K/uL (1.2-3.4); Mean Corpuscular Hgb Conc 33.6 g/dL (32-36); Mean Corpuscular Volume 81.9 fL (80-100); Mean Platelet Volume 10.2 fL (7.4-10.4); Monocytes # (auto) 0.31 K/uL (0.11-0.59); Monocytes % (auto) 9.8 %; Neutrophils # (auto) 2.58 K/uL (1.4-6.5); Neutrophils % (auto) 81.6 %; Platelet Count 127 K/uL (130-400); RDW Coefficient of Variation 16.5 % (11.5-14.5); RDW Standard Deviation 50.4 fL (36.4-46.3); Red Blood Count 4.32 M/uL (4.2-5.4); White Blood Count 3.16 K/uL (4.8-10.8)
[2019-03-10 14:50] LABS: Prothrombin Time 10.4 Seconds (9.0-12.0)
[2019-03-10 14:51] LABS: Appearance Urine Turbid (Clear); Bilirubin Urine Negative (Negative); Blood Urine Trace (Negative); Color Urine Yellow; Epithelial Cell Urine Auto >30 /lpf (0-5); Glucose Urine UA Negative (Negative); Ketones Urine Negative (Negative); Leukocyte Esterase Urine Negative (Negative); Nitrite Urine Negative (Negative); Protein Urine 2+ (Negative); Urobilinogen Urine Negative (Negative); pH Urine 6.5 (4.5-7.5)
[2019-03-10 14:56] LABS: Albumin Level 2.7 gm/dl (3.4-5.0); Calcium 8.6 mg/dl (8.5-10.1); Creatinine Clr Calc Pharmacy 32.4 ml/min; Est GFR (African American) 59.9; Est GFR (Non-African American) 51.7; Potassium 4.3 mmol/L (3.5-5.1)
[2019-03-10 15:01] LABS: Bacteria Urine Automated 1+ (Negative)
[2019-03-10 15:06] LABS: Albumin Globulin Ratio 0.5 (0.9-2); Bilirubin,Total 0.7 mg/dl (0.2-1); Globulin 5.1 gm/dl (2.5-4.0); Total Protein 7.8 gm/dl (6.4-8.2); Troponin I 0.033 ng/ml (0-0.045)
[2019-03-10] MEDS ORDERED: ACETAMINOPHEN 500 MG TAB PO STA (15:45)
[2019-03-10] MEDS ORDERED: LEVOFLOXACIN/D5W 750 MG/150 ML BAG IV SCH (16:15)
[2019-03-10] MEDS ORDERED: POTASSIUM CHLORIDE 10 MEQ in SODIUM CHLORIDE 0.9% 1000ML 1,000 ML IV SCH (17:15)
--- NOTE | 2019-03-10 17:17 | History & Physical Report ---
Date of Service March 10, 2019 Assessment & Plan (1) URTI (acute upper respiratory infection): Present on Admission?: Yes (2) Fever: URTI Patient presenting with fever spike, sore throat, hoarse voice, nasal congestion, cough with mild sputum production. -Fever 38.6 C in ED, Labs- Pancytopenia as at baseline. CXR - no Pneumonia, No wheezing on exam, lungs clear -Likely URTI, Influenza- Negative -IV Fluids -Antitussives -S/P IV Levofloxacin in ED. Will continue Levofloxacin 500 mg x 5 days to cover UTI and URTI -Blood cx x 2 ordered, sputum cx ordered, Flu test- Neg ABNORMAL UA Asymptomatic, but with fever spike (which could be sec to URTI) will treat as above -Levofloxacin 500 mg daily x 5 days (QTC : 425) -Follow up urine cx GENERALIZED WEAKNESS Likely physical deconditioning from recent hospitalization and current symptoms No localized weakness or neurological deficits on exam Baseline: Ambulates with walker, now having difficulty to ambulate due to weakn ess -Rx as above -PT/OT ordered. RECENT GI BLEEDING Recent admission 03/08/19 for GI bleeding, likely diverticular resolved spontaneously. Patient refused colonoscopy -No further episodes since admission -Hb stable PANCYTOPENIA Chronic, follows up with Dr Herron outpatient Recent BM biopsy- 10/2017 for the same- hypercellular bone marrow otherwise unremarkable CKD III Baseline creatinine- around 1, near baseline HTN Stable -Continue with atenolol 50 mg HYPOTHYROIDISM -Continue with Levothyroxine CODE STATUS DNR/DNI per patient DVT PROPHYLAXIS Lovenox SQ , Monitor platelets DISPOSITION Observation status PT/OT ordered. Patient lives alone but one out of five daughters is always with her. Family interested in rehab if indicated Present on Admission?: Yes History of Present Illness Chief Complaint: Generalized weakness/Difficulty ambulating due to weakness for 2 days since discharge Cough since discharge for 2 days since discharge Fever spike Primary Care Provider: Alice Evans MD Patient is a 83-year-old female with past history of chronic kidney disease stage III, hypertension, hyperlipidemia, vitamin B12 deficiency, vitamin D deficiency, hypothyroidism, known seasonal allergic rhinitis, pancytopenia, comes to ED accompanied by her daughters for generalized weakness, difficulty ambulating for few days. Patient was discharged from the hospital on 03/08/2019, 2 days ago when she was diagnosed with probable GI bleed which spontaneously resolved. Patient refused colonoscopy procedure. Bleeding has stopped since then. No more episodes. Patient was seen by PT/OT and discharged home. Per daughters, since patient has been home she continues to have generalized weakness, difficulty ambulating with her walker. Today she was unable to walk at all even with her walker as her legs were shaky and unable to take steps. New symptoms since discharge includes cough with mild sputum production, sore throat, dryness, some nasal congestion, hoarseness of voice. Mild confusion noted. Denies any urinary burning or frequency, abdominal pain, diarrhea, wheezing, shortness of breath, chest pain, nausea, vomiting, headache. No localized weakness or tingling/numbness, headaches. In ED, AAOX3, not in acute distress. Fever spike of 38.6 Celsius, pancytopenia at baseline. Sodium 130, UA positive for UTI. Chest x-raynegative for pneumonia. We will admit the patient under observation for fever, generalized weakness for further evaluation and management. Allergies Allergy/AdvReac Type Severity Reaction Status Date / Time beclomethasone Allergy Unknown Unknown Verified 03/10/19 15:02 diazepam Allergy Unknown Unknown Verified 03/10/19 15:02 codeine AdvReac Mild MILD Verified 03/10/19 15:02 CONFUSION Home Medications Home Medications Medication Instructions Recorded Confirmed Type atenolol 50 mg PO PM 03/03/19 03/10/19 History cholecalciferol (vitamin D3) 2,000 unit PO QAM 03/03/19 03/10/19 History [Vitamin D3] cyanocobalamin (vitamin B-12) 1,000 mcg PO QAM 03/03/19 03/10/19 History [Vitamin B-12] levothyroxine 88 mcg PO QAM 03/03/19 03/10/19 History loratadine 10 mg PO DIRECTED PRN 03/03/19 03/10/19 History Past Med/Surg History Medical History Osteoarthritis Hyperlipidemia Hypophosphatemia Chronic kidney disease Hypothyroidism (Chronic) Hypertension (Chronic) Neutropenia (Chronic) HTN (hypertension) Thrombocytopenia Leukopenia Hypothyroidism DVT prophylaxis Altered mental status (Acute) Dehydration (Acute) Rhabdomyolysis (Acute) Sinusitis (Acute) Head injury without fracture of skull Left hip pain (Acute) Syncope and collapse Family History Other No significant family history Social History Preferred Language: Italian Communication Ability: Effective Beliefs That Will Affect Care: None marital status: / Current Living Situation: Other Current Living Situation Comment: 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 Pupils are equal, round, reactive to light and accomodation. EARS- Normal pinna, no discharge, tenderness noted NOSE- No nasal discharge noted NECK- Supple, no JVD LUNGS- Air entry bilaterally equal. No rales, rhonchi, crackles, wheezes heard. HEART- Regular rate and rhythm. No murmurs ABDOMEN- Soft, non tender, non distended, Bowel sounds heard. EXTREMITIES- Good peripheral pulses, no edema NEUROMUSCULAR- AAOX3, Grossly no focal deficits SKIN- No rashes Results & Data Vital Signs (Past 12 Hours) Vital Signs Temp Pulse Pulse Resp BP BP Pulse Ox 03/10/19 15:27 77 18 142/70 H 97 03/10/19 14:19 76 19 158/79 H 93 03/10/19 14:08 93 03/10/19 13:23 38.6 C H 85 20 178/75 H 97 Laboratory Results WBC 3.16, hemoglobin 11.9, platelets 127 [id number] Chest x-rayno acute abnormality EKG shows no acute ischemic changes compared to prior EKG Code Status & VTE Plan Code Status DNR/DNI per patient VTE Prophylaxis Plan VTE Prophylaxis will be ordered: Yes (1) Fever Fever type: unspecified Qualified Code(s): R50.9 - Fever, unspecified
[2019-03-10] MEDS ORDERED: POLYETHYLENE (MIRALAX) 17 GM PACK PO PRN (19:19)
[2019-03-10] MEDS ORDERED: ONDANSETRON INJ 2 MG/ML 2 ML VIAL IV PRN (19:19)
[2019-03-10] MEDS ORDERED: ACETAMINOPHEN 325 MG TAB PO PRN (19:19)
[2019-03-10] MEDS ORDERED: LORATADINE 10 MG TAB PO PRN (19:19)
[2019-03-10] MEDS ORDERED: SODIUM CHLORIDE 0.65% NA SOLN 45 ML (OCEAN) ONE (20:05)
[2019-03-10] MEDS ORDERED: SALINE NASAL 225 SPRAYS, GENTAMICIN SULFATE 60 MG, BARCODE IDENTIFIER 0 EA PRN (20:06)
--- NOTE | 2019-03-10 20:41 | Emergency Department Note ---
Entered by Mery Baker acting as a scribe for Kenroy Stoddard DO History of Present Illness General Chief complaint: Leg Weakness, Bilateral Source: patient and family History of Present Illness Provider complaint: bilateral leg weakness Onset (ago): day(s) 5 Location: lower extremity (bilateral) Pain Consistency: + other (persistent) Quality: + other (leg weakness) Associated symptoms: + confusion, + cough and + other (-rectal bleeding, +sore throat, +diarrhea, -vision loss, +runny nose, - open sores); no fever/chills and no headaches The patient is a year old female who presents to the Emergency Room with complaints of persistent bilateral leg weakness. The patient states that the weakness started on Wednesday when she was discharged for a GI bleed and had gotten worse today where she cannot stand up. Per the family, the patient has had a worsening cough and sore throat for 2 days. The patient also states that she is experiencing a runny nose, but denies a fever, abdominal pain, headache, vision loss, rectal bleeding, open sores, and diarrhea. The family states that the patient has been confused for months and she does not know what year it is today. Family notes that the confusion has gotten worse today. The patient reports that she has no history of asthma and is a non smoker. Home Medications Home Medications Medication Instructions Recorded Confirmed Type atenolol 50 mg PO PM 03/03/19 03/10/19 History cholecalciferol (vitamin D3) 2,000 unit PO QAM 03/03/19 03/10/19 History [Vitamin D3] cyanocobalamin (vitamin B-12) 1,000 mcg PO QAM 03/03/19 03/10/19 History [Vitamin B-12] levothyroxine 88 mcg PO QAM 03/03/19 03/10/19 History loratadine 10 mg PO DIRECTED PRN 03/03/19 03/10/19 History Allergies Allergy/AdvReac Type Severity Reaction Status Date / Time beclomethasone Allergy Unknown Unknown Verified 03/10/19 15:02 diazepam Allergy Unknown Unknown Verified 03/10/19 15:02 codeine AdvReac Mild MILD Verified 03/10/19 15:02 CONFUSION Past Med/Surg History Medical History Osteoarthritis Hyperlipidemia Hypophosphatemia Chronic kidney disease Hypothyroidism (Chronic) Hypertension (Chronic) Neutropenia (Chronic) HTN (hypertension) Thrombocytopenia Leukopenia Hypothyroidism DVT prophylaxis Altered mental status (Acute) Dehydration (Acute) Rhabdomyolysis (Acute) Sinusitis (Acute) Head injury without fracture of skull Left hip pain (Acute) Syncope and collapse Family History Other No significant family history Social History Preferred Language: Iranian Communication Ability: Effective Beliefs That Will Affect Care: None marital status: / Current Living Situation: Other Current Living Situation Comment: 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 and A total of 10 systems reviewed and were otherwise negative Physical Exam Vital Signs Vital Signs - 24 hr 03/10/19 13:23 03/10/19 14:08 03/10/19 14:19 Temperature 38.6 C H Temperature Source Oral Sepsis Recent Fever Within 48 Hours No Sepsis Action Taken by Nursing No Action Required Pulse Rate 85 Pulse Rate [Finger] 76 Pulse Rhythm [Finger] Pulse Strength [Finger] Respiratory Rate 20 19 Respiratory Effort / Characteristics Respiratory Depth Normal Respiratory Pattern Blood Pressure 178/75 H Blood Pressure [Right Arm] 158/79 H Blood Pressure Mean 109 Blood Pressure Mean [Right Arm] 105 Blood Pressure Position [Right Arm] Pulse Oximetry 97 93 93 Oxygen Delivery Method Room Air Room Air 03/10/19 15:27 Temperature Temperature Source Sepsis Recent Fever Within 48 Hours Sepsis Action Taken by Nursing Pulse Rate Pulse Rate [Finger] 77 Pulse Rhythm [Finger] Regular Pulse Strength [Finger] Normal Respiratory Rate 18 Respiratory Effort / Characteristics Non-Labored Spontaneous Respiratory Depth Normal Respiratory Pattern Regular Blood Pressure Blood Pressure [Right Arm] 142/70 H Blood Pressure Mean Blood Pressure Mean [Right Arm] 94 Blood Pressure Position [Right Arm] Lying Pulse Oximetry 97 Oxygen Delivery Method Room Air GENERAL: Disheveled.no acute distress, non-toxic EYE EXAM: normal conjunctiva, PERRL and EOM's grossly intact OROPHARYNX: no exudate, no erythema, lips, buccal mucosa, and tongue normal and mucous membranes are moist NECK: supple, no nuchal rigidity, no adenopathy, non-tender LUNGS: Clear to auscultation. Normal chest wall mechanics HEART: no murmurs, S1 normal and S2 normal ABDOMEN: abdomen soft, non-tender, normo-active bowel sounds, no masses, no rebound or guarding. BACK: Back is symmetrical on inspection and there is no deformity, no midline tenderness, no CVA tenderness. SKIN: no rashes and no bruising UPPER EXTREMITIES: upper extremities are grossly normal. LOWER EXTREMITIES: No pitting edema. NEURO EXAM: Oriented to person, not place or time, cranial nerves II-XII intact, normal speech, no weakness of arms, no weakness of upper and lower extremities. Course ED COURSE: Vital signs were reviewed and showed Hypertension The patients medical record was reviewed The above diagnostic studies were performed and reviewed. ED treatments and interventions as stated above. 1351: The patient was evaluated in room C12. A complete history and physical examination was performed. 1608: Upon reevaluation, the patient is resting comfortably.I discussed my findings with the patient and she understands and agrees with the treatment plan. Based on the patients age, coexisting illnesses, exam and lab findings the de cision to treat as an inpatient was made. The patient remained stable while under my care. 1612: The patient will be evaluated for further management. Administered Medications Levofloxacin/Dextrose (Levaquin/D5w) 750 mg in 150 mls @ 100 mls/hr IV Q24H [facility] Stop: 03/24/19 16:14 Last Infusion: 03/10/19 17:49 Dose: 0 mls/hr Documented by: [id number] Admin: 03/10/19 16:19 Dose: 100 mls/hr Documented by: [id number] Discontinued Medications Acetaminophen (Tylenol) 1,000 mg PO NOW STA Stop: 03/10/19 15:46 Last Admin: 03/10/19 15:53 Dose: 1,000 mg Documented by: [id number] Potassium Chloride 10 meq/ (Sodium Chloride) 1,005 mls @ 75 mls/hr IV .[id number] [facility] Stop: 04/09/19 17:14 Last Admin: 03/10/19 18:30 Dose: Not Given Documented by: [id number] Medical Decision Making Differential Diagnosis Differential diagnosis: Etiologies such as sepsis, UTI, pneumonia, metabolic, electrolyte abnormalities, cardiac sources, intracerebral event, toxicologic, neurologic, as well as others were entertained. Medical Records Attestation: I reviewed the patient's medical records. Home Medications Current Medication List: was personally reviewed by me Laboratory Data Attestation: I reviewed the patient's lab results. Result diagrams: 03/10/19 14:17 03/10/19 14:17 Lab Results 03/10/19 03/10/19 03/10/19 Range/Units 14:17 14:17 14:17 WBC 3.16 L (4.8-10.8) K/uL RBC 4.32 (4.2-5.4) M/uL Hgb 11.9 L (12.0-16.0) g/dL Hct 35.4 L (37-47) % MCV 81.9 (80-100) fL MCH 27.5 (25-34) pg MCHC 33.6 (32-36) g/dL RDW Std Deviation 50.4 H (36.4-46.3) fL RDW Coeff of Rubi 16.5 H (11.5-14.5) % Plt Count 127 L (130-400) K/uL MPV 10.2 (7.4-10.4) fL Immature Gran % (Auto) 0.0 % Neut % (Auto) 81.6 % Lymph % (Auto) 7.0 % [place] % (Auto) 9.8 % Eos % (Auto) 1.3 % Baso % (Auto) 0.3 % Immature Gran # (Auto) 0.00 (0.00-0.02) K/uL Neut # (Auto) 2.58 (1.4-6.5) K/uL Lymph # (Auto) 0.22 L (1.2-3.4) K/uL [place] # (Auto) 0.31 (0.11-0.59) K/uL Eos # (Auto) 0.04 (0-0.5) K/uL Baso # (Auto) 0.01 (0-0.2) K/uL PT 10.4 (9.0-12.0) Seconds INR 1.0 (0.9-1.1) Sodium 130 L (136-145) mmol/L Potassium 4.3 (3.5-5.1) mmol/L Chloride 96 L (98-107) mmol/L Carbon Dioxide 29 (21-32) mmol/L Anion Gap 5.0 (3-11) BUN 22 H (7-18) mg/dl Creatinine 1.00 (0.6-1.2) mg/dl Est Cr Clr Drug Dosing 32.4 ml/min Est GFR ( Amer) 59.9 Est GFR (Non-Af Amer) 51.7 BUN/Creatinine Ratio 22.0 H (10-20) Glucose 119 H (70-99) mg/dl Calcium 8.6 (8.5-10.1) mg/dl Total Bilirubin 0.7 (0.2-1) mg/dl AST 34 (15-37) U/L ALT 26 (12-78) U/L Alkaline Phosphatase 150 H (45-117) U/L Troponin I 0.033 (0-0.045) ng/ml Total Protein 7.8 (6.4-8.2) gm/dl Albumin 2.7 L (3.4-5.0) gm/dl Globulin 5.1 H (2.5-4.0) gm/dl Albumin/Globulin Ratio 0.5 L (0.9-2) TSH 2.020 (0.300-4.500) uIu/ml Urine Color Urine Appearance (Clear) Urine pH (4.5-7.5) Ur Specific [place] (1.000-1.030) Urine Protein (Negative) Urine Glucose (UA) (Negative) Urine Ketones (Negative) Urine Blood (Negative) Urine Nitrite (Negative) Urine Bilirubin (Negative) Urine Urobilinogen (Negative) Ur Leukocyte Esterase (Negative) Urine WBC (Auto) (0-5) /hpf Urine RBC (Auto) (0-4) /hpf U Hyaline Cast (Auto) (0-5) /lpf U Epithel Cells (Auto) (0-5) /lpf Urine Bacteria (Auto) (Negative) Urine Yeast Influenza Type A Ag (Neg) Influenza Type B Ag (Neg) 03/10/19 03/10/19 Range/Units 14:30 15:23 WBC (4.8-10.8) K/uL RBC (4.2-5.4) M/uL Hgb (12.0-16.0) g/dL Hct (37-47) % MCV (80-100) fL MCH (25-34) pg MCHC (32-36) g/dL RDW Std Deviation (36.4-46.3) fL RDW Coeff of Rubi (11.5-14.5) % Plt Count (130-400) K/uL MPV (7.4-10.4) fL Immature Gran % (Auto) % Neut % (Auto) % Lymph % (Auto) % [place] % (Auto) % Eos % (Auto) % Baso % (Auto) % Immature Gran # (Auto) (0.00-0.02) K/uL Neut # (Auto) (1.4-6.5) K/uL Lymph # (Auto) (1.2-3.4) K/uL [place] # (Auto) (0.11-0.59) K/uL Eos # (Auto) (0-0.5) K/uL Baso # (Auto) (0-0.2) K/uL PT (9.0-12.0) Seconds INR (0.9-1.1) Sodium (136-145) mmol/L Potassium (3.5-5.1) mmol/L Chloride (98-107) mmol/L Carbon Dioxide (21-32) mmol/L Anion Gap (3-11) BUN (7-18) mg/dl Creatinine (0.6-1.2) mg/dl Est Cr Clr Drug Dosing ml/min Est GFR ( Amer) Est GFR (Non-Af Amer) BUN/Creatinine Ratio (10-20) Glucose (70-99) mg/dl Calcium (8.5-10.1) mg/dl Total Bilirubin (0.2-1) mg/dl AST (15-37) U/L ALT (12-78) U/L Alkaline Phosphatase (45-117) U/L Troponin I (0-0.045) ng/ml Total Protein (6.4-8.2) gm/dl Albumin (3.4-5.0) gm/dl Globulin (2.5-4.0) gm/dl Albumin/Globulin Ratio (0.9-2) TSH (0.300-4.500) uIu/ml Urine Color Yellow Urine Appearance Turbid A (Clear) Urine pH 6.5 (4.5-7.5) Ur Specific [place] 1.020 (1.000-1.030) Urine Protein 2+ H (Negative) Urine Glucose (UA) Negative (Negative) Urine Ketones Negative (Negative) Urine Blood Trace H (Negative) Urine Nitrite Negative (Negative) Urine Bilirubin Negative (Negative) Urine Urobilinogen Negative (Negative) Ur Leukocyte Esterase Negative (Negative) Urine WBC (Auto) 10-30 H (0-5) /hpf Urine RBC (Auto) 10-30 H (0-4) /hpf U Hyaline Cast (Auto) 1-5 (0-5) /lpf U Epithel Cells (Auto) >30 H (0-5) /lpf Urine Bacteria (Auto) 1+ H (Negative) Urine Yeast Not Reportable Influenza Type A Ag Neg for Influ A (Neg) Influenza Type B Ag Neg for Influ B (Neg) Imaging Data Radiologist's Impression: Radiology results as stated below per my review and the radiologist's interpretation: XR chest 1V portable CLINICAL HISTORY: weakness L status change COMPARISON STUDY: 03/03/2019 FINDINGS: The bones soft tissues and hemidiaphragms are normal. The cardi omediastinal silhouette is normal. The lungs are clear. The pulmonary vasculature is normal. Chronic deterioration of the shoulders bilaterally IMPRESSION: No acute process. The above report was generated using voice recognition software. It may contain grammatical, syntax or spelling errors. Electronically signed by: Michael Holloway M.D. 03/10/2019 2:27 PM Blood Pressure Blood Pressure Findings: Elevated blood pressure Blood Pressure Disposition: Referred to patients primary care provider EYAD Narrative Patient is an 83-year-old female who presents the ER for cough associate with a hoarse voice chills and diffuse weakness and worsening confusion. She was recently admitted and discharged following a GI bleed which she did not have a colonoscopy for as she declined it while here. She notes the symptoms have resolved. 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 Hemoglobin to 12. Platelets slightly low at 127. INR is unremarkable. BMP with mild hyponatremia. LFTs bilirubin and troponin were negative. TSH was unremarkable. UA was contaminated with multiple epithelial cells. Influenza was negative. Chest x-ray was unremarkable. Patient was given dose of IV Levaquin due to the bronchitis. She was updated bedside along with family. She was discussed with the hospitalist for worsening confusion associated with fever and unable to ambulate. No signs of meningitis or encephalitis. Impression & Plan Bronchitis, Altered mental status, Weakness, Fever Discharge Plan Visit Data *Final* Discharge Date/Time: 03/10/19 18:47 Chief Complaint: Leg Weakness, Bilateral ED Provider: Kenroy Stoddard Discharge Problem: Bronchitis, Altered mental status, Weakness, Fever Patient Disposition: Admitted As Inpatient Discharge Instructions Interventions: ED Discharge Assessment Last Done: 03/10/19 18:47 Discharge Problem: Altered mental status Qualifiers: Altered mental status type: unspecified Qualified Code(s): R41.82 - Altered mental status, unspecified Fever Qualifiers: Fever type: unspecified Qualified Code(s): R50.9 - Fever, unspecified The scribe's documentation has been prepared under my direction and personally reviewed by me in its entirety. I confirm that the note above accurately reflects all work, treatment, procedures, and medical decision making performed by me.
[2019-03-10] MEDS: SODIUM CHLORIDE 0.9% 1000ML 1,000 ML IV SCH (21:42)
[2019-03-10] MEDS ORDERED: SODIUM CHLORIDE 0.65% NA SOLN 45 ML (OCEAN) PRN (22:18)
[2019-03-10] MEDS: ATENOLOL 50 MG TABLET PO SCH (22:21)
[2019-03-10] MEDS: ENOXAPARIN INJ 30 MG/0.3 ML SYR SQ SCH (23:28)
[2019-03-11] MEDS: SODIUM CHLORIDE 0.9% 1000ML 1,000 ML IV SCH (05:30)
[2019-03-11] MEDS: LEVOTHYROXINE SODIUM 88 MCG TABLET PO SCH (05:32)
[2019-03-11 06:17] LABS: Hematocrit (blood only) 31.6 % (37-47); Hemoglobin 10.6 g/dL (12.0-16.0); Mean Corpuscular Hgb Conc 33.5 g/dL (32-36); Mean Platelet Volume 9.8 fL (7.4-10.4); Platelet Count 121 K/uL (130-400); RDW Coefficient of Variation 16.5 % (11.5-14.5); RDW Standard Deviation 49.2 fL (36.4-46.3); White Blood Count 2.17 K/uL (4.8-10.8)
[2019-03-11 06:46] LABS: BUN Creatinine Ratio 19.9 (10-20); Calcium 8.8 mg/dl (8.5-10.1); Creatinine Clr Calc Pharmacy 34.5 ml/min; Est GFR (African American) 65.4; Est GFR (Non-African American) 56.4
[2019-03-11] MEDS: CYANOCOBALAMIN 500 MCG TABLET (VITAMIN B-12) PO SCH (07:49)
[2019-03-11] MEDS: CHOLECALCIFEROL 1,000 UNITS TAB PO SCH (07:50)
--- NOTE | 2019-03-11 12:58 | Hospitalist Progress Note ---
Date of Service March 11, 2019 Assessment & Plan (1) URTI (acute upper respiratory infection): (2) Fever: URTI Clinically improving. No more fever spikes Patient presenting with fever spike, sore throat, hoarse voice, nasal congestion, cough with mild sputum production. -CXR - no Pneumonia, No wheezing on exam, lungs clear -Likely URTI, Influenza- Negative -IV Fluids--> Ok to discontinue -S/P IV Levofloxacin in ED. Continue Levofloxacin 500 mg (Day 2/5) to cover UTI and URTI -Blood cx x 2 - no growth, sputum cx -not collected Flu test- Neg ABNORMAL UA Asymptomatic, but with fever spike (which could be sec to URTI) will treat as above -Levofloxacin 500 mg daily x 5 days (QTC : 425) -Urine cx- Pin point growth , reincubating GENERALIZED WEAKNESS Likely physical deconditioning from recent hospitalization and current symptoms No localized weakness or neurological deficits on exam Baseline: Ambulates with walker, now having difficulty to ambulate due to weakness -Rx as above -PT/OT ordered. RECENT GI BLEEDING Recent admission 03/08/19 for GI bleeding, likely diverticular resolved spontaneously. Patient refused colonoscopy -No further episodes since admission -Hb stable PANCYTOPENIA Chronic, follows up with Dr Herron outpatient Recent BM biopsy- 10/2017 for the same- hypercellular bone marrow otherwise unremarkable CKD III Baseline creatinine- around 1, near baseline HTN Stable -Continue with atenolol 50 mg HYPOTHYROIDISM -Continue with Levothyroxine CODE STATUS DNR/DNI per patient DVT PROPHYLAXIS Lovenox SQ , Monitor platelets DISPOSITION Observation status--> Change to inpatient status PT/OT ordered-Recommends inpatient rehab. Patient lives alone but one out of five daughters is always with her. Patient and family interested in inpatient rehab- [facility] Plan is to discharge on Wednesday Updated daughter by bedside Subjective Patient is feeling much better. Denies any complaints- sore throat, hoarseness of voice has improved. Cough has improved No more fever spikes, no chills. No chest pain, SOB. Physical Exam Physical Exam: GENERAL- AAOX2, No acute distress NECK- Supple, no JVD LUNGS- Air entry bilaterally equal. No rales, rhonchi, crackles, wheezes heard. HEART- Regular rate and rhythm. No murmurs ABDOMEN- Soft, non tender, non distended, Bowel sounds heard. EXTREMITIES- Good peripheral pulses, no edema NEUROMUSCULAR- AAOX2, Grossly no focal deficits Results & Data Vital Signs (Past 12 Hours) Vital Signs Temp Pulse Resp BP Pulse Ox 03/11/19 11:35 98 03/11/19 07:00 36.8 C 68 18 176/73 H 96 (1) Fever Fever type: unspecified Qualified Code(s): R50.9 - Fever, unspecified
[2019-03-11] MEDS: ATENOLOL 50 MG TABLET PO SCH (21:04)
[2019-03-11] MEDS: ENOXAPARIN INJ 30 MG/0.3 ML SYR SQ SCH (21:04)
[2019-03-12] MEDS: LEVOTHYROXINE SODIUM 88 MCG TABLET PO SCH (05:59)
[2019-03-12] MEDS: levoFLOXacin 750 MG TAB PO SCH (08:42)
[2019-03-12] MEDS: CYANOCOBALAMIN 500 MCG TABLET (VITAMIN B-12) PO SCH (08:42)
[2019-03-12] MEDS: CHOLECALCIFEROL 1,000 UNITS TAB PO SCH (08:42)
--- NOTE | 2019-03-12 12:54 | Hospitalist Progress Note ---
Date of Service March 12, 2019 Assessment & Plan (1) URTI (acute upper respiratory infection): (2) Fever: URTI Clinically improving. No more fever spikes Patient presenting with fever spike, sore throat, hoarse voice, nasal congestion, cough with mild sputum production. -CXR - no Pneumonia, No wheezing on exam, lungs clear -Likely URTI, Influenza- Negative -S/P IVF -S/P IV Levofloxacin in ED. Continue Levofloxacin 500 mg (Day 3/5) to cover UTI and URTI -Blood cx x 2 - no growth, sputum cx -not collected Flu test- Neg ABNORMAL UA Asymptomatic, but with fever spike (which could be sec to URTI) will treat as ab ove -Levofloxacin 500 mg daily x 5 days (QTC : 425) as above -Urine cx- No sig growth GENERALIZED WEAKNESS Likely physical deconditioning from recent hospitalization and current symptoms No localized weakness or neurological deficits on exam Baseline: Ambulates with walker, now having difficulty to ambulate due to weakness -Rx as above -PT/OT recommends rehab. RECENT GI BLEEDING Recent admission 03/08/19 for GI bleeding, likely diverticular resolved spontaneously. Patient refused colonoscopy -No further episodes since admission -Hb stable PANCYTOPENIA Chronic, follows up with Dr Herron outpatient Recent BM biopsy- 10/2017 for the same- hypercellular bone marrow otherwise unremarkable CKD III Baseline creatinine- around 1, near baseline HTN Elevated. Per patient, PCP recently discontinued her second blood pressure medication as her pressures were stable at home. At home her blood pressures always been in 130s. -Continue with atenolol 50 mg HYPOTHYROIDISM -Continue with Levothyroxine CODE STATUS DNR/DNI per patient DVT PROPHYLAXIS Lovenox SQ , Monitor platelets DISPOSITION Observation status--> Changed to inpatient status PT/OT ordered-Recommends inpatient rehab. Patient lives alone but one out of five daughters is always with her. Patient and family interested in inpatient rehab- [facility] Plan is to discharge on Wednesday Updated daughter by bedside Subjective Patient is feeling much better. Denies any complaints- sore throat, hoarseness of voice has improved. Cough has improved No more fever spikes, no chills. No chest pain, SOB. Physical Exam Physical Exam: GENERAL- AAOX2, No acute distress NECK- Supple, no JVD LUNGS- Air entry bilaterally equal. No rales, rhonchi, crackles, wheezes heard. HEART- Regular rate and rhythm. No murmurs EXTREMITIES- Good peripheral pulses, no edema Results & Data Vital Signs (Past 12 Hours) Vital Signs Temp Pulse Resp BP Pulse Ox 03/12/19 06:59 36.6 C 60 18 163/80 H 96 (1) Fever Fever type: unspecified Qualified Code(s): R50.9 - Fever, unspecified
[2019-03-12] MEDS: ENOXAPARIN INJ 30 MG/0.3 ML SYR SQ SCH (20:42)
[2019-03-12] MEDS: ATENOLOL 50 MG TABLET PO SCH (20:42)
[2019-03-13] MEDS: LEVOTHYROXINE SODIUM 88 MCG TABLET PO SCH (05:25)
[2019-03-13] MEDS ORDERED: AMLODIPINE BESYLATE 5 MG TAB PO SCH (09:00)
[2019-03-13] MEDS: CYANOCOBALAMIN 500 MCG TABLET (VITAMIN B-12) PO SCH (09:03)
[2019-03-13] MEDS: CHOLECALCIFEROL 1,000 UNITS TAB PO SCH (09:03)
[2019-03-13] MEDS ORDERED: HydrALAZINE HCL 20 MG/ML VIAL IV PRN (15:19)
--- NOTE | 2019-03-13 15:22 | Hospitalist Progress Note ---
Date of Service March 13, 2019 Assessment & Plan (1) URTI (acute upper respiratory infection): (2) Fever: HTN Elevated Per patient, PCP recently discontinued her second blood pressure medication as her pressures were stable at home. At home her blood pressure has always been in 130s. -Continue with atenolol 50 mg. Added Amlodipine 5 mg in AM. However BP still in 180s--> Increase to 10 mg and added IV Hydralazine 10 mg q 8 hours PRN for SBP >180 URTI Clinically improving. No more fever spikes Patient presenting with fever spike, sore throat, hoarse voice, nasal congestion, cough with mild sputum production. -CXR - no Pneumonia, No wheezing on exam, lungs clear -Likely URTI, Influenza- Negative -S/P IVF -S/P IV Levofloxacin in ED. Continue Levofloxacin 500 mg (Day 4/5) to cover UTI and URTI -Blood cx x 2 - no growth, sputum cx -not collected Flu test- Neg ABNORMAL UA Asymptomatic, but with fever spike (which could be sec to URTI) will treat as above -Levofloxacin 500 mg daily x 5 days (QTC : 425) as above -Urine cx- No sig growth GENERALIZED WEAKNESS Likely physical deconditioning from recent hospitalization and current symptoms No localized weakness or neurological deficits on exam Baseline: Ambulates with walker, now having difficulty to ambulate due to weakness -Rx as above -PT/OT recommends rehab. RECENT GI BLEEDING Recent admission 03/08/19 for GI bleeding, likely diverticular resolved spontaneously. Patient refused colonoscopy -No further episodes since admission -Hb stable PANCYTOPENIA Chronic, follows up with Dr Herron outpatient Recent BM biopsy- 10/2017 for the same- hypercellular bone marrow otherwise unremarkable CKD III Baseline creatinine- around 1, near baseline HYPOTHYROIDISM -Continue with Levothyroxine CODE STATUS DNR/DNI per patient DVT PROPHYLAXIS Lovenox SQ , Monitor platelets DISPOSITION Observation status--> Changed to inpatient status PT/OT ordered-Recommends inpatient rehab. Patient lives alone but one out of five daughters is always with her. Patient and family interested in inpatient rehab- [facility] Plan is to discharge on Wednesday Updated daughter by bedside Subjective Patient is feeling much better. Denies any complaints- sore throat, hoarseness of voice has improved. Cough has improved No more fever spikes, no chills. No chest pain, SOB. BP continues to be high Physical Exam Physical Exam: GENERAL- AAOX2, No acute distress NECK- Supple, no JVD LUNGS- Air entry bilaterally equal. No rales, rhonchi, crackles, wheezes heard. HEART- Regular rate and rhythm. No murmurs EXTREMITIES- Good peripheral pulses, no edema Results & Data Vital Signs (Past 12 Hours) Vital Signs Temp Pulse Resp BP Pulse Ox 03/13/19 07:47 36.7 C 66 20 186/95 H 95 (1) Fever Fever type: unspecified Qualified Code(s): R50.9 - Fever, unspecified
[2019-03-13] MEDS: ATENOLOL 50 MG TABLET PO SCH (21:05)
[2019-03-13] MEDS: ENOXAPARIN INJ 30 MG/0.3 ML SYR SQ SCH (21:06)
[2019-03-14] MEDS: LEVOTHYROXINE SODIUM 88 MCG TABLET PO SCH (05:41)
[2019-03-14] MEDS: CYANOCOBALAMIN 500 MCG TABLET (VITAMIN B-12) PO SCH (08:39)
[2019-03-14] MEDS: AMLODIPINE BESYLATE 5 MG TAB PO SCH (08:39)
[2019-03-14] MEDS: CHOLECALCIFEROL 1,000 UNITS TAB PO SCH (08:39)
[2019-03-14] MEDS: levoFLOXacin 750 MG TAB PO SCH (11:02)
--- NOTE | 2019-03-14 13:44 | Hospitalist Progress Note ---
Date of Service March 14, 2019 Assessment & Plan (1) URTI (acute upper respiratory infection): (2) Fever: URTI Asymptomatic now. No more fever spikes since admission Patient presented with fever spike, sore throat, hoarse voice, nasal congestion, cough with mild sputum production. -CXR - no Pneumonia, No wheezing on exam, lungs clear -Likely URTI, Influenza- Negative -S/P IVF -S/P IV Levofloxacin in ED. Continue Levofloxacin 500 mg (Day 02/19) to cover UTI and URTI -Blood cx x 2 - no growth, sputum cx -not collected Flu test- Neg HTN Uncontrolled, now improving after adding amlodipine 10 mg yesterday. Per patient, PCP recently discontinued her second blood pressure medication as her pressures were stable at home. At home her blood pressure has always been in 130s, but here continued to be high in 170-180s. -Continue with atenolol 50 mg. ABNORMAL UA Asymptomatic, but with fever spike (which could be sec to URTI) will treat as above -Levofloxacin 500 mg daily x 5 days (QTC : 425) as above -Urine cx- No sig growth GENERALIZED WEAKNESS Likely physical deconditioning from recent hospitalization and current symptoms No localized weakness or neurological deficits on exam Baseline: Ambulates with walker, now having difficulty to ambulate due to weakness -Rx as above -PT/OT recommends rehab. RECENT GI BLEEDING Recent admission 03/08/19 for GI bleeding, likely diverticular resolved spontaneously. Patient refused colonoscopy -No further episodes since admission -Hb stable PANCYTOPENIA Chronic, follows up with Dr Herron outpatient Recent BM biopsy- 10/2017 for the same- hypercellular bone marrow otherwise unremarkable CKD III Baseline creatinine- around 1, near baseline HYPOTHYROIDISM -Continue with Levothyroxine CODE STATUS DNR/DNI per patient DVT PROPHYLAXIS Lovenox SQ , Monitor platelets DISPOSITION Observation status--> Changed to inpatient status PT/OT ordered-Recommends inpatient rehab. Patient lives alone but one out of five daughters is always with her. Patient and family interested in inpatient rehab- [facility] Bed available tomorrow. Ok to discharge from medical point of view, awaiting placement Updated daughter by bedside Subjective Patient is feeling much better. Denies any complaints- sore throat, hoarseness of voice has improved. Cough has improved No more fever spikes, no chills. No chest pain, SOB. BP has improved Physical Exam Physical Exam: GENERAL- AAOX2, No acute distress NECK- Supple, no JVD LUNGS- Air entry bilaterally equal. No rales, rhonchi, crackles, wheezes heard. HEART- Regular rate and rhythm. No murmurs EXTREMITIES- Good peripheral pulses, no edema Results & Data Vital Signs (Past 12 Hours) Vital Signs Temp Pulse Resp BP BP Pulse Ox 03/14/19 11:05 74 147/68 H 03/14/19 06:44 36.5 C 69 20 169/71 H 95 03/14/19 06:16 61 157/75 H 03/14/19 05:53 179/83 H (1) Fever Fever type: unspecified Qualified Code(s): R50.9 - Fever, unspecified
[2019-03-14] MEDS: ATENOLOL 50 MG TABLET PO SCH (20:27)
[2019-03-14] MEDS: ENOXAPARIN INJ 30 MG/0.3 ML SYR SQ SCH (20:27)
[2019-03-15] MEDS: LEVOTHYROXINE SODIUM 88 MCG TABLET PO SCH (05:44)
[2019-03-15] MEDS: CYANOCOBALAMIN 500 MCG TABLET (VITAMIN B-12) PO SCH (08:49)
[2019-03-15] MEDS: AMLODIPINE BESYLATE 5 MG TAB PO SCH (08:50)
[2019-03-15] MEDS: CHOLECALCIFEROL 1,000 UNITS TAB PO SCH (08:50)
--- NOTE | 2019-03-15 14:38 | Hospitalist Progress Note ---
Date of Service March 15, 2019 Assessment & Plan (1) URTI (acute upper respiratory infection): Symptom has completely resolved, no cough, no fever, no hypoxia Presented with sore throat, nasal congestion, cough with mild sputum production, fever spike Chest x-ray shows no pneumonia, lung auscultation was clear Influenza: Negative Patient was treated empirically with levofloxacin 500 mg p.o. daily for 5 days, for both URI and possible urinary tract infection Blood cultures x2- growth Clinically improved, stable to be transferred to skilled rehab today (2) Fever: Possible secondary to URI, No fever spike since admission Blood cultures x2 no growth HTN Blood pressure improved after elevation of amlodipine 10 mg p.o. daily ABNORMAL UA Asymptomatic, but with fever spike -Levofloxacin 500 mg daily x 5 days (QTC : 425) as above -Urine cx- No sig growth GENERALIZED WEAKNESS Likely physical deconditioning from recent hospitalization and current symptoms No localized weakness or neurological deficits on exam Baseline: Ambulates with walker, now having difficulty to ambulate due to weakness -PT/OT recommends rehab. -Accepted at [facility] for SNF, stable to be transferred today RECENT GI BLEEDING Recent admission 03/08/19 for GI bleeding, likely diverticular resolved spontaneously. Patient refused colonoscopy -No further episodes since admission -Hb stable PANCYTOPENIA Chronic, follows up with Dr Herron outpatient Recent BM biopsy- 10/2017 for the same- hypercellular bone marrow otherwise unrem arkable CKD III Baseline creatinine- around 1, near baseline HYPOTHYROIDISM -Continue with Levothyroxine CODE STATUS DNR/DNI per patient DVT PROPHYLAXIS Lovenox SQ , Monitor platelets DISPOSITION Stable to be discharged to [facility] for continued rehab today Updated daughter by bedside- will provide transport Subjective Feels fine, no complaint of cough, no sore throat, no fever chills Ambulating independently Accepted at [facility] for skilled rehab Daughter present at bedside will provide transportation Stable to be discharged to skilled rehab today Physical Exam Physical Exam: GENERAL: No sign of distress, elderly female, very pleasant HEENT: Sclera nonicteric, pink-purple bilateral equal reactive to light extraocular muscle intact Normal oral mucosa, neck: No JVD, no thyromegaly, trachea midline Lungs: Clear to auscultate, no wheeze or rales Cardiovascular: Regular S1 and S2, no murmur or gallop, no JVD, no lower extremity edema Abdomen: Soft, nontender, bowel sounds active, no hepatosplenomegaly Extremities: No rash or deformity, normal joint, Neuro: No focal neurological deficit, no dysarthria, no facial droop Psych: Alert awake oriented x3: Euthymic Skin: No rash LYMPH NODES: No cervical lymphadenopathy Results & Data Vital Signs (Past 12 Hours) Vital Signs Temp Pulse Resp BP Pulse Ox 03/15/19 07:29 36.9 C 67 20 124/76 95 (1) Fever Fever type: unspecified Qualified Code(s): R50.9 - Fever, unspecified
--- NOTE | 2019-03-15 17:03 | Discharge Summary ---
Date of Service March 15, 2019 Admission HPI Per Admitting Provider Patient is a 83-year-old female with past history of chronic kidney disease stage III, hypertension, hyperlipidemia, vitamin B12 deficiency, vitamin D deficiency, hypothyroidism, known seasonal allergic rhinitis, pancytopenia, comes to ED accompanied by her daughters for generalized weakness, difficulty ambulating for few days. Patient was discharged from the hospital on 03/08/2019, 2 days ago when she was diagnosed with probable GI bleed which spontaneously resolved. Patient refused colonoscopy procedure. Bleeding has stopped since then. No more episodes. Patient was seen by PT/OT and discharged home. Per daughters, since patient has been home she continues to have generalized weakness, difficulty ambulating with her walker. Today she was unable to walk at all even with her walker as her legs were shaky and unable to take steps. New symptoms since discharge includes cough with mild sputum production, sore throat, dryness, some nasal congestion, hoarseness of voice. Mild confusion noted. Denies any urinary burning or frequency, abdominal pain, diarrhea, wheezing, shortness of breath, chest pain, nausea, vomiting, headache. No localized weakness or tingling/numbness, headaches. In ED, AAOX3, not in acute distress. Fever spike of 38.6 Celsius, pancytopenia at baseline. Sodium 130, UA positive for UTI. Chest x-raynegative for pneumonia. We will admit the patient under observation for fever, generalized weakness for further evaluation and management. Principal Diagnosis Weakness, dehydration, cough/fever: Possible bronchitis-resolved Discharge Data Allergies Allergy/AdvReac Type Severity Reaction Status Date / Time beclomethasone Allergy Unknown Unknown Verified 03/10/19 15:02 diazepam Allergy Unknown Unknown Verified 03/10/19 15:02 codeine AdvReac Mild MILD Verified 03/10/19 15:02 CONFUSION Consultations 03/10/19 17:19 ED Decision to Admit Stat 03/10/19 19:19 Consult Case Management - Discharge Planning Routine Hospital Course (1) URTI (acute upper respiratory infection): Symptom has completely resolved, no cough, no fever, no hypoxia Presented with sore throat, nasal congestion, cough with mild sputum production, fever spike Chest x-ray shows no pneumonia, lung auscultation was clear Influenza: Negative Patient was treated empirically with levofloxacin 500 mg p.o. daily for 5 days, for both URI and possible urinary tract infection Blood cultures x2- growth Clinically improved, stable to be transferred to skilled rehab today (2) Fever: Possible secondary to URI, No fever spike since admission Blood cultures x2 no growth HTN Blood pressure improved after elevation of amlodipine 10 mg p.o. daily ABNORMAL UA Asymptomatic, but with fever spike -Levofloxacin 500 mg daily x 5 days (QTC : 425) as above -Urine cx- No sig growth GENERALIZED WEAKNESS Likely physical deconditioning from recent hospitalization and current symptoms No localized weakness or neurological deficits on exam Baseline: Ambulates with walker, now having difficulty to ambulate due to weakness -PT/OT recommends rehab. -Accepted at [facility] for SNF, stable to be transferred today RECENT GI BLEEDING Recent admission 03/08/19 for GI bleeding, likely diverticular resolved spontaneously. Patient refused colonoscopy -No further episodes since admission -Hb stable PANCYTOPENIA Chronic, follows up with Dr Herron outpatient Recent BM biopsy- 10/2017 for the same- hypercellular bone marrow otherwise unremarkable CKD III Baseline creatinine- around 1, near baseline HYPOTHYROIDISM -Continue with Levothyroxine CODE STATUS DNR/DNI per patient DVT PROPHYLAXIS Lovenox SQ , Monitor platelets DISPOSITION Stable to be discharged to [facility] for continued rehab today Updated daughter by bedside- will provide transport Total Time Total Time Spent Total Time Spent (In Minutes): approx 45 mins Total Time Includes: Examination of the Patient, Discharge Planning and Medication Reconciliation Discharge Plan Discharge Items Patient Disposition: Transfer Detention Fac Reason For Visit: FEVER Discharge Diagnosis: Weakness, dehydration, cough/fever: Possible bronchitis- resolved Discharge Goals: Decrease discomfort, Diagnostic testing and Therapeutic intervention Activity: As commented below Activity Comment: CONTINUE PHYSICAL THERAPY /OCCUPATIONAL THERAY AT [facility] Non-emergency contact: Primary Care Provider Call non-emergency contact if: you have any medication questions Follow-up/Referrals: Alice Evans MD [Primary Care Provider] - Diet: Heart Healthy Addtl Provider Instructions: DO NOT TAKE ASPIRIN , NO MOTRIN, ALEVE , ADVIL , NAPROXEN DRINK PLENTY OF WATER TO KEEP HYDRATED Prescriptions: New amlodipine [Norvasc] 5 mg Tablet 10 mg PO QAM 30 Days Qty: 60 RF: 0 Continued levothyroxine 88 mcg tablet 88 mcg PO QAM RF: 0 atenolol 50 mg tablet 50 mg PO PM RF: 0 cyanocobalamin (vitamin B-12) [Vitamin B-12] 1,000 mcg Tablet 1,000 mcg PO QAM RF: 0 loratadine 10 mg Tablet 10 mg PO DIRECTED PRN (Reason: Allergy Symptoms) RF: 0 cholecalciferol (vitamin D3) [Vitamin D3] 2,000 unit Capsule 2,000 unit PO QAM RF: 0 Stand-Alone Forms: [facility] Discharge Orders: Discharge Order (Routine); Ordered 03/15/19 Ordered By: Patsy Haile Admission Data Admit Date/Time: 03/11/19 12:51 Attending Provider: Patsy Haile Admit Provider: Lucrecia Herron Primary Care Provider: Alice Evans Other Providers: Shaheen Herron ; Tr[facility] R[facility] ; [facility] ; Lucrecia Herron Service: Medical Other Interventions: Discharge Summary Assessment (RN) Last Done: 03/15/19 14:42 DC Date/Time DO NOT enter until pt leaves facility: 03/15/19 14:52
== END 2019-03-15 14:52 | DRG 153 ==
LOC: ED 13:14 → 4W 13:14 → SUATTDRO 03-11 12:51

== ENCOUNTER 2019-06-08 12:19 | Inpatient (IN) ==
[2019-06-08] MEDS ORDERED: ACETAMINOPHEN 1,000 MG/100 ML VIAL IV STA (13:28)
[2019-06-08] MEDS ORDERED: SODIUM CHLORIDE 0.9% 500 ML IV SCH (13:30)
--- NOTE | 2019-06-08 14:17 | XRay Report ---
XR chest 1V portable CLINICAL HISTORY: Atypical chest pain COMPARISON STUDY: 03/10/2019 FINDINGS: The cardiac and mediastinal contours are normal. There is no evidence of focal pulmonary co nsolidation. There is no evidence of failure. No pleural effusions are visualized.[Advanced chronic a rthritic changes involve both shoulders with evidence of erosive arthropathy. IMPRESSION: No active disease in the chest. Electronically signed by: Kavon Llamas M.D. 06/08/2019 2:16 PM
--- NOTE | 2019-06-08 14:19 | XRay Report ---
XR shoulder LT min 2V routine CLINICAL HISTORY: Left shoulder pain status post trauma COMPARISON: None. DISCUSSION: No acute fractures are visualized. There are advanced chronic arthritic changes involving the left shoulder with erosive changes involving the distal clavicle acromion and scapular glenoid. There is mild superior displacement of the humerus unchanged from the prior study. 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 No acute fractures. Electronically signed by: Kavon Llamas M.D. 06/08/2019 2:17 PM
--- NOTE | 2019-06-08 14:20 | XRay Report ---
XR humerus LT 2V CLINICAL HISTORY: fall pain trauma. Pain. COMPARISON: Chest series 10/16/2018 DISCUSSION: Severe degenerative change left shoulder. Chronic superior migration left humeral shaft. Pseudoarticulation and erosion of the inferior aspect of the distal clavicle. This is unchanged from the prior study. Moderate synovial calcification. Deformity of the glenoid. The remainder of the humerus is unremarkable. There is no evidence for soft tissue swelling. IMPRESSION: Severe degenerative change left shoulder. No acute process of the humerus. The above report was generated using voice recognition software. It may contain grammatical, syntax or spelling errors. Electronically signed by: Michael Holloway M.D. 06/08/2019 2:18 PM
[2019-06-08 14:55] LABS: Alanine Aminotransferase 37 U/L (12-78); Albumin Level 3.3 gm/dl (3.4-5.0); Aspartate Aminotransferase 58 U/L (15-37); BUN Creatinine Ratio 30.2 (10-20); Blood Urea Nitrogen 34 mg/dl (7-18); Calcium 9.2 mg/dl (8.5-10.1); Carbon Dioxide 27 mmol/L (21-32); Chloride 101 mmol/L (98-107); Creatinine Clr Calc Pharmacy 28.2 ml/min; Est GFR (African American) 51.7; Est GFR (Non-African American) 44.6; Glucose 110 mg/dl (70-99); Potassium 4.1 mmol/L (3.5-5.1); Sodium 136 mmol/L (136-145)
[2019-06-08 15:00] LABS: Appearance Urine Clear (Clear); Bacteria Urine Automated Negative (Negative); Bilirubin Urine Negative (Negative); Blood Urine 2+ (Negative); Color Urine Yellow; Epithelial Cell Urine Auto 0-5 /lpf (0-5); Glucose Urine UA Negative (Negative); Ketones Urine Negative (Negative); Leukocyte Esterase Urine Negative (Negative); Nitrite Urine Negative (Negative); Protein Urine 3+ (Negative); Specific Gravity Urine 1.024 (1.000-1.030); Urobilinogen Urine Negative (Negative); WBC Urine Automated 0 /hpf (0-5); pH Urine 5.5 (4.5-7.5)
[2019-06-08 15:04] LABS: Albumin Globulin Ratio 0.6 (0.9-2); Alkaline Phosphatase 131 U/L (45-117); Bilirubin,Total 0.9 mg/dl (0.2-1); Creatine Kinase 513 U/L (26-192); Globulin 5.1 gm/dl (2.5-4.0); Phosphorus 3.3 mg/dl (2.5-4.9); Total Protein 8.4 gm/dl (6.4-8.2); Troponin I < 0.015 ng/ml (0-0.045)
[2019-06-08 15:18] LABS: T4 Free Thyroxine 1.24 ng/dl (0.8-1.6)
[2019-06-08] MEDS ORDERED: IOVERSOL 100ml IV PRN (15:23)
[2019-06-08 15:28] LABS: Basophils # (auto) 0.01 K/uL (0-0.2); Basophils % (auto) 0.1 %; Eosinophils # (auto) 0.06 K/uL (0-0.5); Eosinophils % (auto) 0.8 %; Hematocrit (blood only) 40.2 % (37-47); Hemoglobin 13.8 g/dL (12.0-16.0); Immature Granulocytes # (auto) 0.03 K/uL (0.00-0.02); Immature Granulocytes % (auto) 0.4 %; Lymphocytes # (auto) 0.47 K/uL (1.2-3.4); Lymphocytes % (auto) 6.5 %; Mean Corpuscular Hgb Conc 34.3 g/dL (32-36); Mean Corpuscular Volume 80.6 fL (80-100); Mean Platelet Volume 10.2 fL (7.4-10.4); Monocytes # (auto) 0.37 K/uL (0.11-0.59); Monocytes % (auto) 5.1 %; Neutrophils # (auto) 6.27 K/uL (1.4-6.5); Neutrophils % (auto) 87.1 %; Platelet Count 117 K/uL (130-400); RDW Coefficient of Variation 16.9 % (11.5-14.5); RDW Standard Deviation 49.9 fL (36.4-46.3); Red Blood Count 4.99 M/uL (4.2-5.4); White Blood Count 7.21 K/uL (4.8-10.8)
--- NOTE | 2019-06-08 15:38 | CT Scan Report ---
CT cervical spine wo con CT DOSE: 1579.81 mGy.cm HISTORY: Trauma. Pain. fall pain TECHNIQUE: Multiaxial CT images of the cervical spine were performed and reformatted in the sagittal and coronal plane without the use of contrast. A dose lowering technique was utilized adhering to th e principles of ALARA. COMPARISON: None. FINDINGS: No fractures. No subluxation. Prevertebral soft tissues and the C1-C2 interval are intact. No pneumothorax. Considerable degenerative disc changes throughout the entire cervical region. This i s considered rather severe at the C1-C2 complex. Cystic and erosive changes are noted on a degenerati ve basis. Prevertebral soft tissues are unremarkable. IMPRESSION: Severe degenerative change. No acute bony abnormality. The above report was generated using voice recognition software. It may contain grammatical, syntax or spelling errors. Electronically signed by: Michael Holloway M.D. 06/08/2019 3:36 PM
--- NOTE | 2019-06-08 15:45 | CT Scan Report ---
CT chest w con CT DOSE: HISTORY: Trauma fall pain TECHNIQUE: Multiaxial CT images of the chest were performed following the intravenous administration of contrast. A dose lowering technique was utilized adhering to the principles of ALARA. COMPARISON: None. FINDINGS: The lungs are clear. The mediastinal vascular structures are within normal limits. No media stinal or hilar lymphadenopathy. No pleural effusion or pneumothorax. Limited views of the upper abdo men demonstrate a normal liver and spleen. Significant degenerative changes thoracic spine. No eviden ce for compression deformity. Slight nonspecific basilar interstitial prominence. Several very small low suspicion nodular densities. Severe degenerative change of the shoulders bilaterally IMPRESSION: 1. No acute process. 2. Severe degenerative change of the shoulders bilaterally. The above report was generated using voice recognition software. It may contain grammatical, syntax or spelling errors. Electronically signed by: Michael Holloway M.D. 06/08/2019 3:43 PM
--- NOTE | 2019-06-08 15:47 | CT Scan Report ---
CT OF THE HEAD WITHOUT CONTRAST CLINICAL HISTORY: Fall. COMPARISON STUDY: Head CT October 06, 2018. TECHNIQUE: Helical axial images of the head were obtained without IV contrast. Automated exposure con trol was utilized for the study. A dose lowering technique was utilized adhering to the principles o f ALARA. FINDINGS: No acute intracranial hemorrhage, midline shift or mass effect is present. Ventricular syst em is stable. Basilar cisterns are patent. There are no extra-axial collections. Mild white matter hy podensity suggests small vessel disease. There is no calvarial fracture. Small amount of fluid within the right mastoid air cells is noted. IMPRESSION: 1. No acute intracranial findings. 2. No calvarial fracture. Electronically signed by: Joseph Kaplan M.D. 06/08/2019 3:45 PM
--- NOTE | 2019-06-08 15:48 | CT Scan Report ---
CT abd pelvis IV con only CT DOSE: HISTORY: Trauma. Pain. fall pain TECHNIQUE: Multiaxial CT images of the abdomen and pelvis were performed following the use of intrave nous contrast. A dose lowering technique was utilized adhering to the principles of ALARA. COMPARISON STUDY: 03/03/2019 FINDINGS: Minimal interstitial change at both lung bases. Moderate stable splenomegaly. Small hiatal hernia. Atrophy of the pancreas. The kidneys enhance uniformly. No evidence for hydronephrosis. Colonic diverticulosis. No evidence for acute diverticulitis. No free fluid within the pelvic cul-de-sac. Bladder is midline. Fat-containing left inguinal hernia u nchanged from the prior study. Soft tissue contusion lateral to the left hip. Moderate degenerative change of all major bony structures. No acute bony abnormality. IMPRESSION: 1. Soft tissue contusion lateral to the left hip 2. No acute bony abnormality. 3. Chronic changes of the abdomen and pelvis with no additional acute bony abnormality. The above report was generated using voice recognition software. It may contain grammatical, syntax or spelling errors. Electronically signed by: Michael Holloway M.D. 06/08/2019 3:47 PM
[2019-06-08] MEDS ORDERED: SODIUM CHLORIDE 0.9% 500 ML IV ONE (16:00)
--- NOTE | 2019-06-08 17:13 | History & Physical Report ---
Date of Service June 08, 2019 Assessment & Plan (1) Fall: From history that was able to be obtained, it seems like patient lost her balance and fell although unclear how she got to her bedroom. May have been orthostatic related to dehydration vs loss of balance due to generalized weakness. Pt with history of multiple falls previously. Pt currently lives alone - family agreeable that pt will need additional services to keep her safe. Pt adamant that she stay in her apartment so family would like to consider home health services with [facility]. - Consult PT/OT - Consult case management - Fall precautions (2) Hematoma of left thigh: Due to trauma/fall - pt with underlying thrombocytopenia - Recheck CBC in AM to monitor for ongoing bleeding (3) Rhabdomyolysis: Mildly elevated CK today - unclear how long pt was on the floor before found by family - Gentle IVF - Repeat CK in AM and monitor BUN/creatinine/LFTs (4) Dehydration: Clinically dehydrated on exam, BUN/creatinine ratio > 20:1 on labs. Family states that pt struggles to maintain oral intake at times when home - Gentle IVF x 2 liters - Encourage oral hydration - discussed with pt the importance of adequate water intake (5) Chronic kidney disease: Baseline creatinine ~1.0. Today creatinine 1.1 - Monitor labs due to dehydration and mild rhabdo (6) HTN (hypertension): Per family, pt only taking atenolol at present - Continue atenolol while admitted and monitor BP. Suspect initial elevation was situational (7) Thrombocytopenia: Chronic issue - will monitor Present on Admission?: Yes (8) Hypothyroidism: TSH elevated this admission but T4 within normal limits - will defer additional work-up to outpatient and continue same levothyroxine dose at this time Pt seen and reviewed with collaborating physician, Dr. Collazo. Plan of care discussed and as outlined above and was discussed with family at bedside. All questions answered. Pt to be followed starting in AM by Dr. Wilson. Eliane Hernandez PA-C History of Present Illness Chief Complaint: Fall Primary Care Provider: Alice Evans MD 83 y/o female with a PMH of CKD III, hypothyroidism, HTN, vitamin D deficiency and GI bleed who presents via EMS today after being found down at her apartment this morning. History from the patient is limited and it is unclear how reliable it is. Two daughter were at the bedside and assisted with the history. Per family, one of the daughters was there until around 8 pm last evening and pt was well at the time. Another daughter stopped by around 11 am today and found pt lying on her back partially under her bed. She immediately called 911 as she was unable to get her mother up off the floor. Pt states that she was eating ice cream for breakfast this morning and lost her balance. She denies hitting her head or losing consciousness but is unclear on how she got from the kitchen to the bedroom. Daughters think that she likely scooted to the bedroom from the kitchen. They found her walker and a broken bowl of ice cream in the kitchen. Pt is unsure how long she was on the ground before being found. She was incontinent of urine in her brief when she was found. She typically uses a walker for ambulation - family states she is compliant with this. Pt is not on blood thinners but does have a history of thrombocytopenia. She denies any significant pain other than initial burning at the site of the left thigh hematoma. Per daughters, all of the bruising noted today is new from last night. Only skin complaint noted yesterday was dry skin. Pt lives in a first floor apartment (one level) alone but family provides her meals and checks on her frequency. They state that she does not drink enough water and does go outside in the heat even though they have advised her to stay inside where it's cool. Allergies Allergy/AdvReac Type Severity Reaction Status Date / Time beclomethasone Allergy Unknown Unknown Verified 06/08/19 13:00 diazepam Allergy Unknown Unknown Verified 06/08/19 13:00 codeine AdvReac Mild MILD Verified 06/08/19 13:00 CONFUSION doxycycline AdvReac Nausea Verified 06/08/19 18:36 Home Medications Home Medications Medication Instructions Recorded Confirmed Type atenolol 50 mg PO HS 03/03/19 06/08/19 History levothyroxine 88 mcg PO QAM 03/03/19 06/08/19 History loratadine 10 mg PO DIRECTED PRN 03/03/19 06/08/19 History multivitamin 1 tab PO DAILY 06/08/19 06/08/19 History Past Med/Surg History Medical History Osteoarthritis Hyperlipidemia Hypophosphatemia Chronic kidney disease Hypothyroidism (Chronic) Hypertension (Chronic) Neutropenia (Chronic) HTN (hypertension) Thrombocytopenia Leukopenia Hypothyroidism DVT prophylaxis Altered mental status (Acute) Dehydration (Acute) Rhabdomyolysis (Acute) Sinusitis (Acute) Head injury without fracture of skull Left hip pain (Acute) Syncope and collapse UTI (urinary tract infection) Family History Other No significant family history Social History Preferred Language: Finnish Communication Ability: Effective Sales Representative Meats Required: No Beliefs That Will Affect Care: None marital status: / Current Living Situation: Alone Current Living Situation Comment: 24 hour caregivers current occupational status: retired Other Information That Helps Us Care for You: No Feels Safe at Home: Yes Safety Concerns: Feels Safe At This Time Smoking Status: Never smoker Hx Alcohol Use: No Hx Substance Use: No Review of Systems 2 Review of Systems: All systems reviewed & are unremarkable except as noted in HPI & below Constitutional: + fatigue and + weakness (generalized); no fever, no chills and no anorexia Eyes: no diplopia and no worsening vision Ear, Nose, Mouth, Throat: + dry mouth; no nasal congestion, no nasal discharge and no sore throat Respiratory: no cough, no dyspnea and no wheezing Cardiovascular: no chest pain with activity, no palpitations, no syncope and no edema Gastrointestinal: no abdominal pain, no nausea, no vomiting, no constipation and no diarrhea/loose stools Genitourinary: no dysuria, no urinary frequency and no hematuria Musculoskeletal: + muscle weakness (family states they think that pt has CMT but has never been evaluated by neuro for this); no back pain and no neck pain Mild burning in left lateral thigh s/p fall - otherwise denie pain Integumentary: + wounds (skin tear left arm related to fall), + dry skin (ongoing issue) and + unusual bruising (multiple new bruises related to fall) Neurologic: + falls and + generalized weakness; no seizure-like activity, no syncope and no headache(s) Physical Exam Constitutional: + thin, + frail appearing and cooperative; no acute distress Somewhat unreliable historian Eyes: PERRL, conjunctivae normal, anicteric sclerae EOM intact bilaterally (but pt had difficulty completing) ENMT: external ear and nose normal, oropharynx normal Neck: trachea midline Respiratory: normal respiratory effort, lungs clear to auscultation Auscultation: no rales, no rhonchi and no wheezes Cardiovascular: Rate/Rhythm: regular rate and regular rhythm Heart Sounds: no gallop and no cardiac rub Vessels: dorsalis pedis pulses present; no carotid bruit Extremities: normal capillary refill; no calf tenderness and no edema Gastrointestinal (Abdomen): Inspection/Auscultation: normal bowel sounds; abdomen not distended Percussion/Palpation: abdomen soft; abdomen nontender Musculoskeletal: Extremities: + abnormal strength (strength 3/5 in bilateral UE and LE); no cyanosis and no clubbing Skin: no jaundice Trauma: + evidence of skin trauma (multiple areas of ecchymosis, +skin tear left upper arm) and + hematoma (left lateral thigh) Neurologic: moves all extremities; no focal motor deficits Speech / Cognition: normal speech Psychiatric: A+Ox3, euthymic affect Results & Data Vital Signs (Past 12 Hours) Vital Signs Temp Pulse Pulse Resp BP BP Pulse Ox 06/08/19 16:01 73 23 139/64 94 06/08/19 16:00 74 20 93 06/08/19 15:33 97 06/08/19 15:16 71 19 123/61 93 06/08/19 15:02 72 24 76/47 L 94 06/08/19 15:00 77 20 93 06/08/19 14:31 73 28 H 138/63 94 06/08/19 14:30 73 23 97 06/08/19 14:20 77 24 94 06/08/19 14:16 76 25 H 133/78 94 06/08/19 14:14 79 16 133/78 95 06/08/19 14:06 96 06/08/19 12:30 36.4 C L 72 18 189/90 H 96 Laboratory Results Laboratory Results - last 24 hr 06/08/19 06/08/19 06/08/19 14:25 14:25 14:28 WBC 7.21 RBC 4.99 Hgb 13.8 Hct 40.2 MCV 80.6 MCH 27.7 MCHC 34.3 RDW Std Deviation 49.9 H RDW Coeff of Rubi 16.9 H Plt Count 117 L MPV 10.2 Immature Gran % (Auto) 0.4 Neut % (Auto) 87.1 Lymph % (Auto) 6.5 [facility] % (Auto) 5.1 Eos % (Auto) 0.8 Baso % (Auto) 0.1 Immature Gran # (Auto) 0.03 H Neut # (Auto) 6.27 Lymph # (Auto) 0.47 L [facility] # (Auto) 0.37 Eos # (Auto) 0.06 Baso # (Auto) 0.01 Sodium 136 Potassium 4.1 Chloride 101 Carbon Dioxide 27 Anion Gap 8.0 BUN 34 H Creatinine 1.13 Est Cr Clr Drug Dosing 28.2 Est GFR ( Amer) 51.7 Est GFR (Non-Af Amer) 44.6 BUN/Creatinine Ratio 30.2 H Glucose 110 H Calcium 9.2 Phosphorus 3.3 Magnesium 2.0 Total Bilirubin 0.9 AST 58 H ALT 37 Alkaline Phosphatase 131 H Total Creatine Kinase 513 H Troponin I < 0.015 Total Protein 8.4 H Albumin 3.3 L Globulin 5.1 H Albumin/Globulin Ratio 0.6 L Lipase 120 TSH 7.020 H Free T4 1.24 Urine Color Yellow Urine Appearance Clear Urine pH 5.5 Ur Specific [place] 1.024 Urine Protein 3+ H Urine Glucose (UA) Negative Urine Ketones Negative Urine Blood 2+ H Urine Nitrite Negative Urine Bilirubin Negative Urine Urobilinogen Negative Ur Leukocyte Esterase Negative Urine WBC (Auto) 0 Urine RBC (Auto) 5-10 H U Hyaline Cast (Auto) 1-5 U Epithel Cells (Auto) 0-5 Urine Bacteria (Auto) Negative Diagnostic Findings CT Head 06/08/19 - IMPRESSION: 1. No acute intracranial findings. 2. No calvarial fracture Chest x-ray 06/08/19 - IMPRESSION: No active disease in the chest. CT Abd/Pel 06/08/19 - IMPRESSION: 1. Soft tissue contusion lateral to the left hip. 2. No acute bony abnormality. 3. Chronic changes of the abdomen and pelvis with no additional acute bony abnormality. Cervical Spine CT 06/08/19 - IMPRESSION: Severe degenerative change. No acute bony abnormality. Chest CT 06/08/19 - IMPRESSION: 1. No acute process. 2. Severe degenerative change of the shoulders bilaterally. Left Humerus X-ray 06/08/19 - IMPRESSION: Severe degenerative change left shoulder. No acute process of the humerus. Left Shoulder X-ray 06/08/19 - IMPRESSION: Severe chronic arthritic changes involving the left shoulder. No acute fractures. Medications Administered Ioversol (Optiray 320 100ml) 95 ml IV ONCE PRN PRN Reason: Interaction Checking Stop: 06/12/19 15:22 Last Admin: 06/08/19 15:24 Dose: 95 ml Documented by: [id number] Discontinued Medications Sodium Chloride (Nss) 500 mls @ 999 mls/hr IV .Q31M SARA Stop: 06/08/19 14:00 Last Infusion: 06/08/19 14:45 Dose: 0 mls/hr Documented by: [id number] Admin: 06/08/19 14:14 Dose: 999 mls/hr Documented by: [id number] Acetaminophen (Ofirmev) 1,000 mg in 100 mls @ 400 mls/hr IV NOW STA Stop: 06/08/19 13:42 Last Infusion: 06/08/19 14:29 Dose: 0 mls/hr Documented by: [id number] Admin: 06/08/19 14:14 Dose: 400 mls/hr Documented by: [id number] Sodium Chloride (Nss) 500 mls @ 999 mls/hr IV .Q31M ONE Stop: 06/08/19 16:30 Last Infusion: 06/08/19 16:39 Dose: 0 mls/hr Documented by: [id number] Admin: 06/08/19 16:08 Dose: 999 mls/hr Documented by: [id number] Code Status & VTE Plan Code Status Per family/patient, she is DNR/DNI. VTE Prophylaxis Plan Reason for no VTE drug order: Contraindicated (thrombocytopenic/fall risk) Supervising Physician Co-Signing Physician Notes Patient is an 83-year-old female with multiple problems presents with with a fall which is unwitnessed. Patient is a poor historian. Patient was found lying on the floor by her daughter and called 911 she was unable to get her up off the floor. Patient attributes the fall secondary to being lost some balance. She denies any head trauma, loss of consciousness. She was noted to have urinary incontinence. She was noted to have multiple bruises and left thigh hematoma. Please review HPI for complete details of presentation. CT head showed no acute intracranial findings. Chest x-ray showed no acute disease. Soft tissue contusion noted on the left hip region on imaging.No acute fractures noted on imaging. Blood work is suggestive of chronic thrombocytopenia, hemoconcentration, CK levels elevated at 513. Initial troponin were negative. She denies any chest pain, shortness of breath. UA suggestive of microscopic hematuria. EKG showed normal sinus rhythm, poor R wave progression, QTC 486. On exam patient is thin, frail, elderly, no apparent distress, normocephalic atraumatic, multiple bruises noted on extremities, left thigh ecchymosis, grossly no focal neurological deficits, S1-S2, no murmur, lungs are clear to auscultation, trace pedal edema. Patient is admitted for evaluation of unwitnessed fall, left thigh hematoma, mild rhabdomyolysis. Imaging studies not suggestive of any acute fractures. Check orthostatics. Will give gentle IV fluids, recheck CK levels in a.m., trend troponin, repeat EKG in the morning. Also noted microscopic hematuria on urine analysis--?? Secondary to fall. Likely will need repeat urinalysis to look for clearance. If still persistent, will need further evaluation. Avoid QTC prolonging meds as able. Monitor H&H for left thigh hematoma. Consider ultrasound, Ortho evaluation if worsens. Will request PT OT evaluation, and consider rehab placement if needed. I personally reviewed the record. Patient is interviewed and examined at bedside. Patient's care is coordinated with Neyda Bedolla PA-C. Please refer to the documentation above for details of patient's presentation and for discussion of other issues. (1) Hematoma of left thigh Encounter type: initial encounter Qualified Code(s): S70.12XA - Contusion of left thigh, initial encounter (2) Hypothyroidism Hypothyroidism type: acquired Qualified Code(s): E03.9 - Hypothyroidism, unspecified (3) Chronic kidney disease Chronic kidney disease stage: stage 3 (moderate) Qualified Code(s): N18.3 - Chronic kidney disease, stage 3 (moderate) (4) Rhabdomyolysis Encounter type: initial encounter Rhabdomyolysis type: traumatic Qualified Code(s): T79.6XXA - Traumatic ischemia of muscle, initial encounter (5) HTN (hypertension) Hypertension type: essential hypertension Qualified Code(s): I10 - Essential (primary) hypertension (6) Fall Encounter type: initial encounter Qualified Code(s): W19.XXXA - Unspecified fall, initial encounter
--- NOTE | 2019-06-08 19:05 | Emergency Department Note ---
Entered by Mar Landa acting as a scribe for History of Present Illness General Chief complaint: Fall Stated complaint: fall/ hip & shoulder pain Time Seen by Provider: 06/08/19 13:14 Source: patient History of Present Illness Onset (ago): day(s) (last night) Location: left (side of body) Pain Consistency: + other (episode) Quality: + other (fall) Associated symptoms: + denies other symptoms (congestion, having any pain) and + other (skin tears and bruising); no cough The patient is an 83 year old female who presents to the Emergency Room with complaints of an episode of a fall occurring sometime in the night. Per the patients daughter, the patient lives in the apartments at [facility]. She states that last night the patient was being visited by her other daughter last night who left at 1900. She states that she was fine and acting normal at the time. She reports that his morning she went over to give her lunch 2.5 hours ago, but the patient wouldnt answer the door. She states that when she went in, the ch airs were all knocked over in the kitchen and her walker was lying on the floor in the kitchen as well. She notes that the patient never goes anywhere without her walker. She reports that there was melted ice cream on the counter. The patients daughter states that she found her in the bedroom partway under the bed naked. She reports that the patient has no idea how she got there, but they had to lift the bed to get her out from under it. She notes that she is unsure how long she laid there. She notes that she is banged up pretty well on the left side of her body and has some skin tears and bruising. The patients daughter notes that the patient seems fine now, but she usually is like this when she has a UTI. The patient denies cough, congestion, having any pain, and getting out of the shower. The daughter notes that it hadnt looked like she had showered at all. Home Medications Home Medications Medication Instructions Recorded Confirmed Type atenolol 50 mg PO HS 03/03/19 06/08/19 History levothyroxine 88 mcg PO QAM 03/03/19 06/08/19 History loratadine 10 mg PO DIRECTED PRN 03/03/19 06/08/19 History multivitamin 1 tab PO DAILY 06/08/19 06/08/19 History Allergies Allergy/AdvReac Type Severity Reaction Status Date / Time beclomethasone Allergy Unknown Unknown Verified 06/08/19 13:00 diazepam Allergy Unknown Unknown Verified 06/08/19 13:00 codeine AdvReac Mild MILD Verified 06/08/19 13:00 CONFUSION doxycycline AdvReac Nausea Verified 06/08/19 18:36 Past Med/Surg History Medical History Osteoarthritis Hyperlipidemia Hypophosphatemia Chronic kidney disease Hypothyroidism (Chronic) Hypertension (Chronic) Neutropenia (Chronic) HTN (hypertension) Thrombocytopenia Leukopenia Hypothyroidism DVT prophylaxis Altered mental status (Acute) Dehydration (Acute) Rhabdomyolysis (Acute) Sinusitis (Acute) Head injury without fracture of skull Left hip pain (Acute) Syncope and collapse UTI (urinary tract infection) Family History Other No significant family history Social History Preferred Language: Filipino Communication Ability: Effective Product Assurance Engineer Required: No Beliefs That Will Affect Care: None marital status: / Current Living Situation: Alone Current Living Situation Comment: 24 hour caregivers current occupational status: retired Other Information That Helps Us Care for You: No Feels Safe at Home: Yes Safety Concerns: Feels Safe At This Time Smoking Status: Never smoker Hx Alcohol Use: No Hx Substance Use: No Review of Systems See HPI for pertinent positives & negatives. and A total of 10 systems reviewed and were otherwise negative Physical Exam Vital Signs Vital Signs - 24 hr 06/08/19 12:30 06/08/19 14:06 06/08/19 14:14 Temperature 36.4 C L Temperature Source Oral Sepsis Recent Fever Within 48 Hours No Sepsis New/Unexplained Change in Mental Status No Sepsis Action Taken by Nursing No Action Required Pulse Rate 72 Pulse Rate [Apical] 79 Pulse Rate from SpO2 Sensor Pulse Rhythm Regular Pulse Rhythm [Apical] Regular Pulse Strength Normal Pulse Strength [Apical] Normal Respiratory Rate 18 16 Respiratory Effort / Characteristics Non-Labored Spontaneous Non-Labored Spontaneous Respiratory Depth Normal Normal Respiratory Pattern Regular Regular Blood Pressure 189/90 H Blood Pressure [Right Arm] 133/78 Blood Pressure Mean 123 Blood Pressure Mean [Right Arm] 96 Blood Pressure Position Lying Blood Pressure Position [Right Arm] Lying Pulse Oximetry 96 96 95 Oxygen Delivery Method Room Air Room Air Room Air 06/08/19 14:16 06/08/19 14:20 06/08/19 14:30 Temperature Temperature Source Sepsis Recent Fever Within 48 Hours Sepsis New/Unexplained Change in Mental Status Sepsis Action Taken by Nursing Pulse Rate 76 77 73 Pulse Rate [Apical] Pulse Rate from SpO2 Sensor 76 77 73 Pulse Rhythm Pulse Rhythm [Apical] Pulse Strength Pulse Strength [Apical] Respiratory Rate 25 H 24 23 Respiratory Effort / Characteristics Respiratory Depth Respiratory Pattern Blood Pressure 133/78 Blood Pressure [Right Arm] Blood Pressure Mean 96 Blood Pressure Mean [Right Arm] Blood Pressure Position Blood Pressure Position [Right Arm] Pulse Oximetry 94 94 97 Oxygen Delivery Method Room Air Room Air Room Air 06/08/19 14:31 06/08/19 15:00 06/08/19 15:02 Temperature Temperature Source Sepsis Recent Fever Within 48 Hours Sepsis New/Unexplained Change in Mental Status Sepsis Action Taken by Nursing Pulse Rate 73 77 72 Pulse Rate [Apical] Pulse Rate from SpO2 Sensor 73 76 73 Pulse Rhythm Pulse Rhythm [Apical] Pulse Strength Pulse Strength [Apical] Respiratory Rate 28 H 20 24 Respiratory Effort / Characteristics Respiratory Depth Respiratory Pattern Blood Pressure 138/63 76/47 L Blood Pressure [Right Arm] Blood Pressure Mean 88 56 Blood Pressure Mean [Right Arm] Blood Pressure Position Blood Pressure Position [Right Arm] Pulse Oximetry 94 93 94 Oxygen Delivery Method Room Air Room Air Room Air 06/08/19 15:16 06/08/19 15:33 06/08/19 16:00 Temperature Temperature Source Sepsis Recent Fever Within 48 Hours Sepsis New/Unexplained Change in Mental Status Sepsis Action Taken by Nursing Pulse Rate 71 74 Pulse Rate [Apical] Pulse Rate from SpO2 Sensor 71 78 74 Pulse Rhythm Pulse Rhythm [Apical] Pulse Strength Pulse Strength [Apical] Respiratory Rate 19 20 Respiratory Effort / Characteristics Respiratory Depth Respiratory Pattern Blood Pressure 123/61 Blood Pressure [Right Arm] Blood Pressure Mean 81 Blood Pressure Mean [Right Arm] Blood Pressure Position Blood Pressure Position [Right Arm] Pulse Oximetry 93 97 93 Oxygen Delivery Method Room Air Room Air Room Air 06/08/19 16:01 06/08/19 16:30 06/08/19 16:31 Temperature Temperature Source Sepsis Recent Fever Within 48 Hours Sepsis New/Unexplained Change in Mental Status Sepsis Action Taken by Nursing Pulse Rate 73 73 73 Pulse Rate [Apical] Pulse Rate from SpO2 Sensor 73 73 73 Pulse Rhythm Pulse Rhythm [Apical] Pulse Strength Pulse Strength [Apical] Respiratory Rate 23 23 21 Respiratory Effort / Characteristics Respiratory Depth Respiratory Pattern Blood Pressure 139/64 136/68 Blood Pressure [Right Arm] Blood Pressure Mean 89 90 Blood Pressure Mean [Right Arm] Blood Pressure Position Blood Pressure Position [Right Arm] Pulse Oximetry 94 93 93 Oxygen Delivery Method Room Air Room Air Room Air 06/08/19 17:00 06/08/19 17:01 06/08/19 17:30 Temperature Temperature Source Sepsis Recent Fever Within 48 Hours Sepsis New/Unexplained Change in Mental Status Sepsis Action Taken by Nursing Pulse Rate 74 73 77 Pulse Rate [Apical] Pulse Rate from SpO2 Sensor 73 74 78 Pulse Rhythm Pulse Rhythm [Apical] Pulse Strength Pulse Strength [Apical] Respiratory Rate 19 18 28 H Respiratory Effort / Characteristics Respiratory Depth Respiratory Pattern Blood Pressure 140/65 Blood Pressure [Right Arm] Blood Pressure Mean 90 Blood Pressure Mean [Right Arm] Blood Pressure Position Blood Pressure Position [Right Arm] Pulse Oximetry 94 94 94 Oxygen Delivery Method Room Air Room Air Room Air 06/08/19 17:31 Temperature Temperature Source Sepsis Recent Fever Within 48 Hours Sepsis New/Unexplained Change in Mental Status Sepsis Action Taken by Nursing Pulse Rate 75 Pulse Rate [Apical] Pulse Rate from SpO2 Sensor 75 Pulse Rhythm Pulse Rhythm [Apical] Pulse Strength Pulse Strength [Apical] Respiratory Rate 23 Respiratory Effort / Characteristics Respiratory Depth Respiratory Pattern Blood Pressure 155/82 H Blood Pressure [Right Arm] Blood Pressure Mean 106 Blood Pressure Mean [Right Arm] Blood Pressure Position Blood Pressure Position [Right Arm] Pulse Oximetry 94 Oxygen Delivery Method Room Air GENERAL: Awake, alert, fatigued appearing, in no distress HENT: Normocephalic, atraumatic. Oropharynx with dry mucous membranes and otherwise unremarkable. EYES: Normal conjunctiva. Sclera non-icteric. NECK: Supple. No nuchal rigidity. FROM. No JVD. No midline ttp or stepoffs. RESPIRATORY: Clear to auscultation bilaterally. CARDIAC: Regular rate, normal rhythm. Extremities warm and well perfused. Pulses equal. ABDOMEN: Soft, non-distended. No tenderness to palpation. No rebound or guarding. No masses. RECTAL: Deferred. MUSCULOSKELETAL: Chest examination reveals no tenderness. The back is symmetrical on inspection without obvious abnormality. No midline ttp or stepoffs. There is no CVA tenderness to palpation. No joint edema. Baseline ROM of shoulders bilaterally. LOWER EXTREMITIES: Calves are equal size bilaterally and non-tender. No edema. No discoloration. 15 cm hematoma of the left lower gluteal region. Baseline ROM of hips bilaterally. NEURO: Normal sensorium. No sensory or motor deficits noted. SKIN: No rash or jaundice noted. Excoriation to left anterior shoulder with skin tear to the posterior left upper arm. Course 1320: Past medical records reviewed. The patient was evaluated in room A3. A complete history and physical exam was performed. 1605: I reevaluated the patient and she is doing well. I updated her and her family on her test results. I discussed the treatment plan with her and her family. We are going to try to get her into half-way or she will need to stay. 1649: I discussed the patient's case with PAULETTE Campos. She will evaluate the patient for further management. Consultations Consultation #1: I discussed the patient's case with PAULETTE Campos. She will evaluate the patient for further management. Time: 16:49 Administered Medications Atenolol (Tenormin) 50 mg PO HS SARA Stop: 07/08/19 20:59 Last Admin: 06/08/19 21:06 Dose: 50 mg Documented by: [id number] Sodium Chloride (Nss 1000ml) 1,000 mls @ 80 mls/hr IV .[id number] SARA Stop: 06/09/19 19:59 Last Admin: 06/08/19 19:14 Dose: 80 mls/hr Documented by: [id number] Ioversol (Optiray 320 100ml) 95 ml IV ONCE PRN PRN Reason: Interaction Checking Stop: 06/12/19 15:22 Last Admin: 06/08/19 15:24 Dose: 95 ml Documented by: [id number] Discontinued Medications Acetaminophen (Tylenol) 1,000 mg PO 2200 SARA Stop: 06/08/19 22:01 Last Admin: 06/08/19 21:06 Dose: 1,000 mg Documented by: [id number] Sodium Chloride (Nss) 500 mls @ 999 mls/hr IV .Q31M SARA Stop: 06/08/19 14:00 Last Infusion: 06/08/19 14:45 Dose: 0 mls/hr Documented by: [id number] Admin: 06/08/19 14:14 Dose: 999 mls/hr Documented by: [id number] Acetaminophen (Ofirmev) 1,000 mg in 100 mls @ 400 mls/hr IV NOW STA Stop: 06/08/19 13:42 Last Infusion: 06/08/19 14:29 Dose: 0 mls/hr Documented by: [id number] Admin: 06/08/19 14:14 Dose: 400 mls/hr Documented by: [id number] Sodium Chloride (Nss) 500 mls @ 999 mls/hr IV .Q31M ONE Stop: 06/08/19 16:30 Last Infusion: 06/08/19 16:39 Dose: 0 mls/hr Documented by: [id number] Admin: 06/08/19 16:08 Dose: 999 mls/hr Documented by: [id number] Medical Decision Making Differential Diagnosis Differential Diagnosis includes but is not limited to dehydration, stroke, anemia, hypoglycemia, hyponatremia, hypernatremia, urinary tract infection, pneumonia, bronchitis, sepsis, gastroenteritis, additional abdominal pathology, metabolic abnormalities and infections. Medical Records Attestation: I reviewed the patient's medical records. Home Medications Current Medication List: was personally reviewed by me Laboratory Data Attestation: I reviewed the patient's lab results. Result diagrams: 06/08/19 14:25 06/08/19 14:25 Lab Results 06/08/19 06/08/19 06/08/19 Range/Units 14:25 14:25 14:28 WBC 7.21 (4.8-10.8) K/uL RBC 4.99 (4.2-5.4) M/uL Hgb 13.8 (12.0-16.0) g/dL Hct 40.2 (37-47) % MCV 80.6 (80-100) fL MCH 27.7 (25-34) pg MCHC 34.3 (32-36) g/dL RDW Std Deviation 49.9 H (36.4-46.3) fL RDW Coeff of Rubi 16.9 H (11.5-14.5) % Plt Count 117 L (130-400) K/uL MPV 10.2 (7.4-10.4) fL Immature Gran % (Auto) 0.4 % Neut % (Auto) 87.1 % Lymph % (Auto) 6.5 % Clark % (Auto) 5.1 % Eos % (Auto) 0.8 % Baso % (Auto) 0.1 % Immature Gran # (Auto) 0.03 H (0.00-0.02) K/uL Neut # (Auto) 6.27 (1.4-6.5) K/uL Lymph # (Auto) 0.47 L (1.2-3.4) K/uL Clark # (Auto) 0.37 (0.11-0.59) K/uL Eos # (Auto) 0.06 (0-0.5) K/uL Baso # (Auto) 0.01 (0-0.2) K/uL Sodium 136 (136-145) mmol/L Potassium 4.1 (3.5-5.1) mmol/L Chloride 101 (98-107) mmol/L Carbon Dioxide 27 (21-32) mmol/L Anion Gap 8.0 (3-11) BUN 34 H (7-18) mg/dl Creatinine 1.13 (0.6-1.2) mg/dl Est Cr Clr Drug Dosing 28.2 ml/min Est GFR ( Amer) 51.7 Est GFR (Non-Af Amer) 44.6 BUN/Creatinine Ratio 30.2 H (10-20) Glucose 110 H (70-99) mg/dl Calcium 9.2 (8.5-10.1) mg/dl Phosphorus 3.3 (2.5-4.9) mg/dl Magnesium 2.0 (1.8-2.4) mg/dl Total Bilirubin 0.9 (0.2-1) mg/dl AST 58 H (15-37) U/L ALT 37 (12-78) U/L Alkaline Phosphatase 131 H (45-117) U/L Total Creatine Kinase 513 H (26-192) U/L Troponin I < 0.015 (0-0.045) ng/ml Total Protein 8.4 H (6.4-8.2) gm/dl Albumin 3.3 L (3.4-5.0) gm/dl Globulin 5.1 H (2.5-4.0) gm/dl Albumin/Globulin Ratio 0.6 L (0.9-2) Lipase 120 (73-393) U/L TSH 7.020 H (0.300-4.500) uIu/ml Free T4 1.24 (0.8-1.6) ng/dl Urine Color Yellow Urine Appearance Clear (Clear) Urine pH 5.5 (4.5-7.5) Ur Specific Aguirre 1.024 (1.000-1.030) Urine Protein 3+ H (Negative) Urine Glucose (UA) Negative (Negative) Urine Ketones Negative (Negative) Urine Blood 2+ H (Negative) Urine Nitrite Negative (Negative) Urine Bilirubin Negative (Negative) Urine Urobilinogen Negative (Negative) Ur Leukocyte Esterase Negative (Negative) Urine WBC (Auto) 0 (0-5) /hpf Urine RBC (Auto) 5-10 H (0-4) /hpf U Hyaline Cast (Auto) 1-5 (0-5) /lpf U Epithel Cells (Auto) 0-5 (0-5) /lpf Urine Bacteria (Auto) Negative (Negative) Imaging Data Radiologist's Impression: Radiology results as stated below per my review and the radiologist's interpretation: XR chest 1V portable CLINICAL HISTORY: Atypical chest pain COMPARISON STUDY: 03/10/2019 FINDINGS: The cardiac and mediastinal contours are normal. There is no evidence of focal pulmonary consolidation. There is no evidence of failure. No pleural effusions are visualized.[Advanced chronic arthritic changes involve both shoulders with evidence of erosive arthropathy. IMPRESSION: No active disease in the chest. Electronically signed by: Kavon Llamas M.D. 06/08/2019 2:16 PM XR shoulder LT min 2V routine CLINICAL HISTORY: Left shoulder pain status post trauma COMPARISON: None. DISCUSSION: No acute fractures are visualized. There are advanced chronic arthritic changes involving the left shoulder with erosive changes involving the distal clavicle acromion and scapular glenoid. There is mild superior dis placement of the humerus unchanged from the prior study. 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 No acute fractures. Electronically signed by: Kavon Llamas M.D. 06/08/2019 2:17 PM XR humerus LT 2V CLINICAL HISTORY: fall pain trauma. Pain. COMPARISON: Chest series 10/16/2018 DISCUSSION: Severe degenerative change left shoulder. Chronic superior migration left humeral shaft. Pseudoarticulation and erosion of the inferior aspect of the distal clavicle. This is unchanged from the prior study. Moderate synovial calcification. Deformity of the glenoid. The remainder of the humerus is unremarkable. There is no evidence for soft tissue swelling. IMPRESSION: Severe degenerative change left shoulder. No acute process of the humerus. The above report was generated using voice recognition software. It may contain grammatical, syntax or spelling errors. Electronically signed by: Michael Holloway M.D. 06/08/2019 2:[address] OF THE HEAD WITHOUT CONTRAST CLINICAL HISTORY: Fall. COMPARISON STUDY: Head CT October 06, 2018. TECHNIQUE: Helical axial images of the head were obtained without IV contrast. Automated exposure control was utilized for the study. A dose lowering technique was utilized adhering to the principles of ALARA. FINDINGS: No acute intracranial hemorrhage, midline shift or mass effect is present. Ventricular system is stable. Basilar cisterns are patent. There are no extra-axial collections. Mild white matter hypodensity suggests small vessel disease. There is no calvarial fracture. Small amount of fluid within the right mastoid air cells is noted. IMPRESSION: 1. No acute intracranial findings. 2. No calvarial fracture. Electronically signed by: Joseph Kaplan M.D. 06/08/2019 3:[address] cervical spine wo con CT DOSE: 1579.81 mGy.cm HISTORY: Trauma. Pain. fall pain TECHNIQUE: Multiaxial CT images of the cervical spine were performed and reformatted in the sagittal and coronal plane without the use of contrast. A dose lowering technique was utilized adhering to the principles of ALARA. COMPARISON: None. FINDINGS: No fractures. No subluxation. Prevertebral soft tissues and the C1-C2 interval are intact. No pneumothorax. Considerable degenerative disc changes th roughout the entire cervical region. This is considered rather severe at the C1- C2 complex. Cystic and erosive changes are noted on a degenerative basis. Prevertebral soft tissues are unremarkable. IMPRESSION: Severe degenerative change. No acute bony abnormality. The above report was generated using voice recognition software. It may contain grammatical, syntax or spelling errors. Electronically signed by: Michael Holloway M.D. 06/08/2019 3:[address] chest w con CT DOSE: HISTORY: Trauma fall pain TECHNIQUE: Multiaxial CT images of the chest were performed following the intravenous administration of contrast. A dose lowering technique was utilized adhering to the principles of ALARA. COMPARISON: None. FINDINGS: The lungs are clear. The mediastinal vascular structures are within normal limits. No mediastinal or hilar lymphadenopathy. No pleural effusion or pneumothorax. Limited views of the upper abdomen demonstrate a normal liver and spleen. Significant degenerative changes thoracic spine. No evidence for compression deformity. Slight nonspecific basilar interstitial prominence. Several very small low suspicion nodular densities. Severe degenerative change of the shoulders bilaterally IMPRESSION: 1. No acute process. 2. Severe degenerative change of the shoulders bilaterally. The above report was generated using voice recognition software. It may contain grammatical, syntax or spelling errors. Electronically signed by: Michael Holloway M.D. 06/08/2019 3:[address] abd pelvis IV con only CT DOSE: HISTORY: Trauma. Pain. fall pain TECHNIQUE: Multiaxial CT images of the abdomen and pelvis were performed following the use of intravenous contrast. A dose lowering technique was utilized adhering to the principles of ALARA. COMPARISON STUDY: 03/03/2019 FINDINGS: Minimal interstitial change at both lung bases. Moderate stable splenomegaly. Small hiatal hernia. Atrophy of the pancreas. The kidneys enhance uniformly. No evidence for hydronephrosis. Colonic diverticulosis. No evidence for acute diverticulitis. No free fluid within the pelvic cul-de-sac. Bladder is midline. Fat-containing left inguinal hernia unchanged from the prior study. Soft tissue contusion lateral to the left hip. Moderate degenerative change of all major bony structures. No acute bony abnormality. IMPRESSION: 1. Soft tissue contusion lateral to the left hip 2. No acute bony abnormality. 3. Chronic changes of the abdomen and pelvis with no additional acute bony abnormality. The above report was generated using voice recognition software. It may contain grammatical, syntax or spelling errors. Electronically signed by: Michael Holloway M.D. 06/08/2019 3:47 PM ECG Data Attestation: I personally reviewed and interpreted this ECG as follows: Indication: weakness Rate (beats per minute): 73 Rhythm: normal sinus Findings: + other (normal axis); no ST depression, no ST elevation and no acute ischemic change Blood Pressure Blood Pressure Findings: Normal blood pressure Blood Pressure Disposition: did not require urgent referral MDM Narrative The patient is a pleasant 83-year-old woman with a past medical history of hypertension, throat thrombocytopenia, CKD, hyperlipidemia who presents emergency department after being found down by her daughter and her independent living today of unclear duration per hpi. On arrival the patient is fatigued appearing but no acute distress, afebrile stable vital signs. The patient appears clinically dry. She has no focal neuro deficits and moves all extremities equally at her baseline. She does exhibit a skin tear to the posterior aspect of her left upper arm and abrasion of her left anterior shoulder. She has a 15 cm hematoma to her left lower gluteal region. EKG without overt acute ischemia. Chest x-ray negative for acute process. CT of the head, C-spine, chest, abdomen and pelvis performed and negative for acute traumatic injury or infectious process. WBC, H/H within normal limits. Platelets 117 within range of prior values. Chemistry without acidosis. Creatinine 1.13 with BUN of 34 consistent with the patient's clinically dry appearance. AST slightly elevated 58 similar to prior elevations and otherwise electrolytes and LFTs unremarkable. Troponin negative. CPK slightly elevated at 513. UA without convincing evidence of infection. Patient feeling improved after gentle IV fluid hydration. The patient's likely prolonged downtime and generalized weakness with mild rhabdomyolysis reasonable to have the patient under half-way care. We did investigate the possibility of transitioning from her independent living to half-way at her facility however given insurance requirements to make this transition will need to admit the patient for PT evaluation and placement. Patient and family members agreeable with this plan. [facility] who will evaluate the patient for admission. Impression & Plan Syncope, Dehydration, Rhabdomyolysis Discharge Plan Visit Data *Final* Discharge Date/Time: 06/08/19 18:32 Chief Complaint: Fall Stated Complaint: fall/ hip & shoulder pain ED Provider: Sal Beebe Discharge Problem: Syncope, Dehydration, Rhabdomyolysis Patient Disposition: Admitted As Inpatient Discharge Instructions Interventions: ED Discharge Assessment Last Done: 06/08/19 18:32 Discharge Problem: Syncope Qualifiers: Syncope type: unspecified Qualified Code(s): R55 - Syncope and collapse Rhabdomyolysis Qualifiers: Rhabdomyolysis type: traumatic Encounter type: initial encounter Qualified Code(s): T79.6XXA - Traumatic ischemia of muscle, initial encounter The scribe's documentation has been prepared under my direction and personally reviewed by me in its entirety. I confirm that the note above accurately reflects all work, treatment, procedures, and medical decision making performed by me.
[2019-06-08] MEDS: SODIUM CHLORIDE 0.9% 1000ML 1,000 ML IV SCH (19:14)
[2019-06-08] MEDS: ATENOLOL 50 MG TABLET PO SCH (21:06)
[2019-06-08] MEDS ORDERED: ACETAMINOPHEN 500 MG TAB PO SCH (22:00)
[2019-06-09] MEDS: LEVOTHYROXINE SODIUM 88 MCG TABLET PO SCH (05:57)
[2019-06-09] MEDS: SODIUM CHLORIDE 0.9% 1000ML 1,000 ML IV SCH (06:35)
[2019-06-09 06:40] LABS: Red Blood Count 4.18 M/uL (4.2-5.4); White Blood Count 3.21 K/uL (4.8-10.8)
[2019-06-09 06:41] LABS: Basophils # (auto) 0.01 K/uL (0-0.2); Basophils % (auto) 0.3 %; Eosinophils # (auto) 0.12 K/uL (0-0.5); Eosinophils % (auto) 3.7 %; Hemoglobin 11.3 g/dL (12.0-16.0); Immature Granulocytes # (auto) 0.01 K/uL (0.00-0.02); Immature Granulocytes % (auto) 0.3 %; Lymphocytes # (auto) 0.17 K/uL (1.2-3.4); Lymphocytes % (auto) 5.3 %; Mean Corpuscular Hgb Conc 33.2 g/dL (32-36); Mean Corpuscular Volume 81.3 fL (80-100); Mean Platelet Volume 9.4 fL (7.4-10.4); Monocytes # (auto) 0.45 K/uL (0.11-0.59); Neutrophils # (auto) 2.45 K/uL (1.4-6.5); Neutrophils % (auto) 76.4 %; Platelet Count 103 K/uL (130-400); RDW Coefficient of Variation 17.5 % (11.5-14.5); RDW Standard Deviation 52.2 fL (36.4-46.3)
[2019-06-09 07:08] LABS: Albumin Level 2.5 gm/dl (3.4-5.0); BUN Creatinine Ratio 25.4 (10-20); Calcium 8.1 mg/dl (8.5-10.1); Creatinine Clr Calc Pharmacy 24.6 ml/min; Est GFR (African American) 52.8; Est GFR (Non-African American) 45.6; Potassium 3.8 mmol/L (3.5-5.1)
[2019-06-09 07:11] LABS: Albumin Globulin Ratio 0.6 (0.9-2); Bilirubin,Total 0.7 mg/dl (0.2-1); Total Protein 6.5 gm/dl (6.4-8.2)
[2019-06-09] MEDS ORDERED: MAGNESIUM HYDROXIDE SUSP 30 ML UDC PO PRN (14:15)
[2019-06-09] MEDS: POLYETHYLENE (MIRALAX) 17 GM PACK PO SCH (16:49)
--- NOTE | 2019-06-09 18:22 | Hospitalist Progress Note ---
Date of Service June 09, 2019 Assessment & Plan (1) Fall: patient lost her balance and fell Was found on the floor, Patient does have a life alert, forgot to press it after sustaining a fall . Pt with history of multiple falls previously. -PT OT evaluation requested Patient will need rehab Referral made to skilled facility [facility](patient lives at independent living/personal care at [facility]) -Appreciate input and help from case management (2) Hematoma of left thigh: Due to trauma/fall - pt with underlying thrombocytopenia -No evidence of bleeding, Patient denies of any pain or discomfort (3) Rhabdomyolysis: Resolved Presented with mildly elevated CK -secondary to fall, being on the floor for unknown. -Given gentle IVF -CK level normalized, Normal renal function (4) Dehydration: Resolved after IV hydration - Encourage oral hydration - discussed with pt the importance of adequate water intake She is agreeable to increase her oral intake of water/beverages (5) Chronic kidney disease: Renal function stable, (6) HTN (hypertension): BP stable, continue atenolol (7) Thrombocytopenia: Chronic issue -no evidence of any bleeding Monitor CBC (8) Hypothyroidism: TSH elevated this admission but T4 within normal limits -subclinical hypothyroidism Continue current dose of levothyroxine Repeat TSH level in 6-8 weeks DVT prophylaxis: SCD and teds Pharmacological, anticoagulation avoided due to thrombocytopenia Disposition: Accepted at SNF at [facility] Plan to transfer to skilled rehab tomorrow Updated patient's daughter over phone Subjective Patient is very pleasant, Denies of any pain or discomfort No complaint of chest pain no fever or chills, vitals remained stable Physical Exam Constitutional: WD/WN, vitals as above no acute distress Eyes: sclerae not anicteric ENMT: external ear and nose normal, oropharynx normal Neck: trachea midline, no thyromegaly Respiratory: normal respiratory effort, lungs clear to auscultation Cardiovascular: RRR, no murmur, no edema Gastrointestinal (Abdomen): normal bowel sounds, soft, nontender, no hepatosplenomegaly Musculoskeletal: Extremities: + abnormal strength (Generalized weakness) Possible diagnosis on both upper and lower extremity Skin: Trauma: + laceration and + contusion Multiple ecchymosis, noted to both upper and lower extremity secondary to recent Neurologic: PERRL, EOMI, accommodation nl, no face palsy, no dysarthria Psychiatric: A+Ox3, euthymic affect Results & Data Vital Signs (Past 12 Hours) Vital Signs Temp Pulse Resp BP Pulse Ox 06/09/19 14:50 36.7 C 69 18 149/74 H 97 06/09/19 07:27 36.8 C 62 18 173/76 H 98 (1) Fall Encounter type: initial encounter Qualified Code(s): W19.XXXA - Unspecified fall, initial encounter (2) Hematoma of left thigh Encounter type: initial encounter Qualified Code(s): S70.12XA - Contusion of left thigh, initial encounter (3) Rhabdomyolysis Encounter type: initial encounter Rhabdomyolysis type: traumatic Qualified Code(s): T79.6XXA - Traumatic ischemia of muscle, initial encounter (4) Chronic kidney disease Chronic kidney disease stage: stage 3 (moderate) Qualified Code(s): N18.3 - Chronic kidney disease, stage 3 (moderate) (5) HTN (hypertension) Hypertension type: essential hypertension Qualified Code(s): I10 - Essential (primary) hypertension (6) Hypothyroidism Hypothyroidism type: acquired Qualified Code(s): E03.9 - Hypothyroidism, unspecified
[2019-06-09] MEDS: ATENOLOL 50 MG TABLET PO SCH (20:08)
[2019-06-10] MEDS: LEVOTHYROXINE SODIUM 88 MCG TABLET PO SCH (05:48)
[2019-06-10] MEDS: POLYETHYLENE (MIRALAX) 17 GM PACK PO SCH (08:22)
[2019-06-10] MEDS ORDERED: ATENOLOL 50 MG TABLET PO STA (10:15)
--- NOTE | 2019-06-10 10:16 | Hospitalist Progress Note ---
Date of Service June 10, 2019 Assessment & Plan (1) Fall: Baseline ambulatory dysfunction, symptom has worsened secondary to dementia Family noted patient has been progressively forgetful, with lack of safety concern patient lost her balance and fell in the kitchen, thank managed to crawl into her bedroom State on on the floor for unknown duration Patient does have a life alert, forgot to press it after sustaining a fall . Pt with history of multiple falls previously. -PT OT evaluation requested Patient will need rehab Referral made to skilled facility [facility](patient lives at independent living/personal care at [facility]) - Accepted at the rehab at [facility] Medically stable to be transferred to rehab today (2) Hematoma of left thigh: Due to trauma/fall - pt with underlying thrombocytopenia -No evidence of bleeding, Patient denies of any pain or discomfort Patient will continue to have PT OT at rehab (3) Rhabdomyolysis: Resolved Presented with mildly elevated CK -secondary to fall, being on the floor for unknown. -Given gentle IVF -CK level normalized, Normal renal function (4) Dehydration: Resolved after IV hydration Family reports of poor p.o. intake, patient forgets to eat her meals-possibly related to dehydration as well - Encourage oral hydration - discussed with pt the importance of adequate water intake She is agreeable to increase her oral intake of water/beverages Patient's p.o. intake has been adequate as per nursing during the hospital stay (5) Chronic kidney disease: Renal function stable, (6) HTN (hypertension): Had hypertensive episodes last night Patient got her p.m. dose of beta-beatriz: Atenolol l 50 mg at 9 PM yesterday 06/09/2019-patient's home med Patient denies of any headache no chills chest pain shortness of breath or dyspnea on exertion We will give atenolol 50 mg x 1 now, monitor for blood pressure improvement prior to transfer to rehab (7) Thrombocytopenia: Chronic issue - Monitor CBC (8) Hypothyroidism: TSH elevated this admission but T4 within normal limits -subclinical hypothyroidism Continue current dose of levothyroxine Repeat TSH level in 6-8 weeks DVT prophylaxis: SCD and teds Pharmacological, anticoagulation avoided due to thrombocytopenia Disposition: Accepted at SNF at [facility] Stable to be transferred to skilled rehab today Updated patient's daughter Araceli over phone Subjective Sitting up in chair, very pleasant, denies of any pain or discomfort Had an uneventful night Patient's face appears to be very flushed, Does not have any itching No other rash in any part of the body Patient reports she not supposed to eat tomatoes, she forgot and ate with her salad last night noticed her face being red as she woke up this morning Ordered for Benadryl ointment, Patient is counseled to avoid tomatoes for possible allergy Physical Exam Constitutional: WD/WN, vitals as above no acute distress Eyes: sclerae not anicteric ENMT: external ear and nose normal, oropharynx normal Face appears to be flushed, no itching no rash noted Neck: trachea midline, no thyromegaly Respiratory: normal respiratory effort, lungs clear to auscultation Cardiovascular: RRR, no murmur, no edema Gastrointestinal (Abdomen): normal bowel sounds, soft, nontender, no hepatosplenomegaly Musculoskeletal: Extremities: + abnormal strength (Generalized weakness) Skin: Trauma: + laceration and + contusion Neurologic: PERRL, EOMI, accommodation nl, no face palsy, no dysarthria Psychiatric: A+Ox3, euthymic affect Results & Data Vital Signs (Past 12 Hours) Vital Signs Temp Pulse Resp BP BP Pulse Ox 06/10/19 10:11 36.8 C 63 18 157/69 H 190/92 H 97 06/10/19 07:21 36.8 C 63 18 157/69 H 97 06/10/19 00:00 36.5 C 80 20 175/79 H 100 (1) Hematoma of left thigh Encounter type: initial encounter Qualified Code(s): S70.12XA - Contusion of left thigh, initial encounter (2) Hypothyroidism Hypothyroidism type: acquired Qualified Code(s): E03.9 - Hypothyroidism, unspecified (3) Chronic kidney disease Chronic kidney disease stage: stage 3 (moderate) Qualified Code(s): N18.3 - Chronic kidney disease, stage 3 (moderate) (4) Rhabdomyolysis Encounter type: initial encounter Rhabdomyolysis type: traumatic Qualified Code(s): T79.6XXA - Traumatic ischemia of muscle, initial encounter (5) HTN (hypertension) Hypertension type: essential hypertension Qualified Code(s): I10 - Essential (primary) hypertension (6) Fall Encounter type: initial encounter Qualified Code(s): W19.XXXA - Unspecified fall, initial encounter
--- NOTE | 2019-06-10 10:41 | Discharge Summary ---
Date of Service June 10, 2019 Admission HPI Per Admitting Provider 83 y/o female with a PMH of CKD III, hypothyroidism, HTN, vitamin D deficiency and GI bleed who presents via EMS today after being found down at her apartment this morning. History from the patient is limited and it is unclear how reliable it is. Two daughter were at the bedside and assisted with the history. Per family, one of the daughters was there until around 8 pm last evening and pt was well at the time. Another daughter stopped by around 11 am today and found pt lying on her back partially under her bed. She immediately called 911 as she was unable to get her mother up off the floor. Pt states that she was eating ice cream for breakfast this morning and lost her balance. She denies hitting her head or losing consciousness but is unclear on how she got from the kitchen to the bedroom. Daughters think that she likely scooted to the bedroom from the kitchen. They found her walker and a broken bowl of ice cream in the kitchen. Pt is unsure how long she was on the ground before being found. She was incontinent of urine in her brief when she was found. She typically uses a walker for ambulation - family states she is compliant with this. Pt is not on blood thinners but does have a history of thrombocytopenia. She denies any significant pain other than initial burning at the site of the left thigh hematoma. Per daughters, all of the bruising noted today is new from last night. Only skin complaint noted yesterday was dry skin. Pt lives in a first floor apartment (one level) alone but family provides her meals and checks on her frequency. They state that she does not drink enough water and does go outside in the heat even though they have advised her to stay inside where it's cool. Principal Diagnosis AMBULATORY DYSFUNCTION/FALL Discharge Exam Constitutional WD/WN, vitals as above no acute distress Eyes sclerae not anicteric ENMT external ear and nose normal, oropharynx normal Neck trachea midline, no thyromegaly Respiratory normal respiratory effort, lungs clear to auscultation Cardiovascular RRR, no murmur, no edema Gastrointestinal (Abdomen) normal bowel sounds, soft, nontender, no hepatosplenomegaly Musculoskeletal Extremities: + abnormal strength (Generalized weakness) Skin Trauma: + laceration and + contusion Neurologic PERRL, EOMI, accommodation nl, no face palsy, no dysarthria Psychiatric A+Ox3, euthymic affect Discharge Data Allergies Allergy/AdvReac Type Severity Reaction Status Date / Time beclomethasone Allergy Unknown Unknown Verified 06/08/19 13:00 diazepam Allergy Unknown Unknown Verified 06/08/19 13:00 tomato Allergy Rash Verified 06/10/19 10:14 codeine AdvReac Mild MILD Verified 06/08/19 13:00 CONFUSION doxycycline AdvReac Nausea Verified 06/08/19 18:36 Consultations 06/08/19 16:55 ED Decision to Admit Stat 06/08/19 17:36 Consult Case Management - Discharge Planning Routine Ordered Studies 06/08/19 13:20 CT head/brain wo con Stat 06/08/19 13:26 CT abd pelvis IV con only Stat CT cervical spine wo con Stat CT chest w con Stat Hospital Course (1) Fall: Baseline ambulatory dysfunction, symptom has worsened secondary to dementia Family noted patient has been progressively forgetful, with lack of safety concern patient lost her balance and fell in the kitchen, thank managed to crawl into her bedroom State on on the floor for unknown duration Patient does have a life alert, forgot to press it after sustaining a fall . Pt with history of multiple falls previously. -PT OT evaluation requested Patient will need rehab Referral made to skilled facility [facility](patient lives at independent living/personal care at [facility]) - Accepted at the rehab at [facility] Medically stable to be transferred to rehab today (2) Hematoma of left thigh: Due to trauma/fall - pt with underlying thrombocytopenia -No evidence of bleeding, Patient denies of any pain or discomfort Patient will continue to have PT OT at rehab (3) Rhabdomyolysis: Resolved Presented with mildly elevated CK -secondary to fall, being on the floor for unknown. -Given gentle IVF -CK level normalized, Normal renal function (4) Dehydration: Resolved after IV hydration Family reports of poor p.o. intake, patient forgets to eat her meals-possibly related to dehydration as well - Encourage oral hydration - discussed with pt the importance of adequate water intake She is agreeable to increase her oral intake of water/beverages Patient's p.o. intake has been adequate as per nursing during the hospital stay (5) Chronic kidney disease: Renal function stable, (6) HTN (hypertension): Patient noted to have hypertensive episodes this morning Patient's home antihypertensives meds are:: Norvasc 10 mg daily, atenolol 50 mg at bedtime Norvasc has been kept on hold as patient was hypotensive on admission All blood pressure medications resumed Patient will be given 10 mg p.o. a.m. dose of Norvasc prior to transfer to rehab today (7) Thrombocytopenia: Chronic issue - Monitor CBC (8) Hypothyroidism: TSH elevated this admission but T4 within normal limits -subclinical hypothyroidism Continue current dose of levothyroxine Repeat TSH level in 6-8 weeks DVT prophylaxis: SCD and teds Pharmacological, anticoagulation avoided due to thrombocytopenia Disposition: Accepted at SNF at [facility] Stable to be transferred to skilled rehab today Updated patient's daughter Araceli over phone Total Time Total Time Spent Total Time Spent (In Minutes): approx 40 mins Total Time Includes: Examination of the Patient, Discharge Planning and Medication Reconciliation Discharge Plan Discharge Items Patient Disposition: Transfer Half-Way Fac Reason For Visit: FALL,RHABO Discharge Diagnosis: AMBULATORY DYSFUNCTION/FALL Discharge Goals: Decrease discomfort and Therapeutic intervention Activity: As commented below Activity Comment: Continue physical therapy occupational therapy at rehab Non-emergency contact: Primary Care Provider Call non-emergency contact if: you have any medication questions Follow-up/Referrals: Aliec Evans MD [Primary Care Provider] - [facility] [Non-Staff] - Diet: Heart Healthy Add Provider Instructions: Continue physical therapy and Occupational Therapy at [facility] ABNORMAL THYROID FUNCTION TEST 06/08/2019: TSH 7.0 elevated/free T4 1.24-within normal limit Possible subclinical hypothyroidism No adjustment made to chronic dose of levothyroxine: Continue 88 mcg by mouth daily Needs repeat thyroid function check in 4-6 weeks Prescriptions: Continued multivitamin Tablet 1 tab PO DAILY RF: 0 amlodipine 10 mg tablet 10 mg PO DAILY RF: 0 levothyroxine 88 mcg tablet 88 mcg PO QAM RF: 0 atenolol 50 mg tablet 50 mg PO HS RF: 0 loratadine 10 mg Tablet 10 mg PO DIRECTED PRN (Reason: Allergy Symptoms) RF: 0 Stand-Alone Forms: [facility] Discharge Orders: Discharge Order (Routine); Ordered 06/10/19 Ordered By: Patsy Haile Skilled Items Patient informed of condition?: Yes DNR: Yes Discharge Level of Care: Skilled Communicable Disease: No Discharge Prognosis: Stable Admission Data Admit Date/Time: 06/09/19 09:56 Attending Provider: Patsy Haile Admit Provider: Magdiel Collazo Primary Care Provider: Alice Evans Other Providers: Magdiel Collazo ; Wilver Wilson ; [facility] Service: Medical Other Interventions: Discharge Summary Assessment (RN) Last Done: 06/10/19 10:11
[2019-06-10] MEDS ORDERED: AMLODIPINE BESYLATE 5 MG TAB PO SCH (10:45)
[2019-06-10] MEDS ORDERED: DiphenhydrAMINE 2%/ZINC 0.1% CREAM 28GM TUBE EXT SCH (11:00)
== END 2019-06-10 15:59 | DRG 93 ==
LOC: 2W 12:19 → ED 12:19 → SUATTDRO 17:35 → 2W 18:32
DX: R31.29 Other microscopic hematuria; S70.12XA Contusion of left thigh, initial encounter; I12.9 Hypertensive chronic kidney disease with stage 1 through stage 4 chronic kidney disease, or unspecified chronic kidney disease; Z66 Do not resuscitate; W18.30XA Fall on same level, unspecified, initial encounter; F03.90 Unspecified dementia, unspecified severity, without behavioral disturbance, psychotic disturbance, mood disturbance, and anxiety; Z88.5 Allergy status to narcotic agent; D69.6 Thrombocytopenia, unspecified; T79.6XXA Traumatic ischemia of muscle, initial encounter; Y92.030 Kitchen in apartment as the place of occurrence of the external cause; Z91.81 History of falling; E03.9 Hypothyroidism, unspecified; L27.2 Dermatitis due to ingested food; Z79.899 Other long term (current) drug therapy; Z91.018 Allergy to other foods; N18.3 Chronic kidney disease, stage 3 (moderate); R29.6 Repeated falls; Z88.8 Allergy status to other drugs, medicaments and biological substances; Z88.1 Allergy status to other antibiotic agents; E86.0 Dehydration